=== PATIENT | female | born 1975 | race Caucasian/White ===

== ENCOUNTER → 2016-06-22 | Outpatient (REF) | payer MEDICAID | LOC: M SFHCWAGY 11:59 | PROVIDERS: ATTEND Nurse Practitioner Family | DX: Z12.4 Encounter for screening for malignant neoplasm of cervix (principal) ==

== ENCOUNTER → 2016-07-05 | Outpatient (REF) | payer MEDICAID ==
[2016-07-05 12:14] LABS: BASO % 0.2 % (0.0-1.0); EOS # 0.3 K/mm3 (0.0-0.50); EOS % 2.4 % (0.0-3.0); LARGE UNSTAINED CELL # 0.2 K/mm3 (0.0-0.4); LARGE UNSTAINED CELL % 1.8 % (0.0-4.0); LYMPH # 2.8 K/mm3 (1.5-4.5); LYMPH % 25.9 % (24.0-44.0); MEAN CORPUSCULAR HEMOGLOBIN 30.1 pg (27.0-33.0); MEAN CORPUSCULAR VOLUME 91.3 fl (80.0-96.0); MONO # 0.7 K/mm3 (0.0-0.8); NEUTROPHILS # 6.9 K/mm3 (1.8-7.7); NEUTROPHILS % 63.6 % (36.0-66.0); PLATELET COUNT, AUTOMATED 304 k/mm3 (150-450); RED CELL DISTRIBUTION WIDTH 12.9 % (11.5-14.5); WHITE BLOOD COUNT 10.9 K/mm3 (4.0-10.0)
[2016-07-05 12:42] LABS: ALBUMIN 2.9 GM/DL (3.2-5.2); ALBUMIN/GLOBULIN RATIO 0.76 (1.00-1.93); ALKALINE PHOSPHATASE 53 U/L (45-117); ALT/SGPT 12 U/L (12-78); ANION GAP 10 MEQ/L (8-16); AST/SGOT 14 U/L (15-37); BILIRUBIN,TOTAL 0.2 MG/DL (0.2-1.0); BLOOD UREA NITROGEN 15 MG/DL (7-18); CALCIUM LEVEL 8.5 MG/DL (8.5-10.1); CARBON DIOXIDE LEVEL 25 MEQ/L (21-32); CHLORIDE LEVEL 105 MEQ/L (98-107); CREATININE FOR GFR 0.78 MG/DL (0.55-1.02); GLOMERULAR FILTRATION RATE > 60.0 (>60); GLUCOSE, FASTING 83 MG/DL (70-105); POTASSIUM SERUM 4.5 MEQ/L (3.5-5.1); SODIUM LEVEL 140 MEQ/L (136-145); TOTAL PROTEIN 6.7 GM/DL (6.4-8.2)
== END ==
LOC: M SFHCPLAZ 08:39
PROVIDERS: ATTEND Family Medicine
DX: G40.909 Epilepsy, unspecified, not intractable, without status epilepticus (principal); E78.2 Mixed hyperlipidemia; R73.01 Impaired fasting glucose; E03.9 Hypothyroidism, unspecified; E55.9 Vitamin D deficiency, unspecified

== ENCOUNTER → 2016-07-05 | Outpatient (REF) | payer MEDICAID | LOC: M LABDRAWP 11:43 | PROVIDERS: ATTEND Physician Assistant Medical | DX: R56.9 Unspecified convulsions (principal) ==

== ENCOUNTER → 2016-11-18 | Outpatient (REF) | payer MEDICAID ==
[2016-11-18 11:48] LABS: BASO % 0.2 % (0.0-1.0); EOS # 0.2 K/mm3 (0.0-0.50); EOS % 2.1 % (0.0-3.0); LARGE UNSTAINED CELL # 0.2 K/mm3 (0.0-0.4); LARGE UNSTAINED CELL % 1.7 % (0.0-4.0); LYMPH # 3.9 K/mm3 (1.5-4.5); MEAN CORPUSCULAR HEMOGLOBIN 30.7 pg (27.0-33.0); MEAN CORPUSCULAR HGB CONC 33.4 g/dl (32.0-36.5); MEAN CORPUSCULAR VOLUME 91.9 fl (80.0-96.0); MONO # 0.8 K/mm3 (0.0-0.8); MONO % 7.3 % (0.0-5.0); NEUTROPHILS % 54.8 % (36.0-66.0); PLATELET COUNT, AUTOMATED 240 k/mm3 (150-450)
[2016-11-18 12:08] LABS: CHOLESTEROL LEVEL 143 MG/DL (<200); FREE T4 1.09 NG/DL (0.76-1.46); TOTAL PROTEIN 6.6 GM/DL (6.4-8.2); TRIGLYCERIDES LEVEL 154 MG/DL (<150)
[2016-11-20 00:07] LABS: FREE KAPPA LIGHT CHAINS SERUM 18.8 mg/L (3.3-19.4); FREE LAMBDA LIGHT CHAINS SERUM 15.4 mg/L (5.7-26.3); KAPPA/LAMBDA RATIO SERUM 1.22 (0.26-1.65)
[2016-11-21 12:49] LABS: ALBUMIN 3.23 GM/DL (3.29-5.55); GAMMA GLOBULIN % 16.3 % (11.1-18.8)
== END ==
LOC: M SFHCPLAZ 08:02
PROVIDERS: ATTEND Family Medicine
DX: D72.829 Elevated white blood cell count, unspecified (principal); E78.2 Mixed hyperlipidemia; E88.09 Other disorders of plasma-protein metabolism, not elsewhere classified; E03.9 Hypothyroidism, unspecified

== ENCOUNTER → 2016-11-18 | Outpatient (CLI) | payer MEDICAID ==
--- NOTE | 2016-11-18 09:56 | REPMRS ---
Patient History The patient states she had a clinical breast exam in 07/15 Baseline Mammogram Patient is nulliparous. Family history of pancreatic cancer in maternal uncle at age 50 or over. Taking hormonal contraceptives for 3 years. Digital Woman Screen Mammo: November 18, 2016 - Exam #: [id number] Bilateral CC and MLO view(s) were taken. Technologist: Nikki Perez, Technologist FINDINGS: There are scattered fibroglandular densities. There is no evidence of dominant mass, architectural distortion, or clustered microcalcification typical of malignancy. ASSESSMENT: BI-RADS/ACR category 1 mammogram. Negative. Recommendation Routine screening mammogram of both breasts in 1 year (for women over age 40). This mammogram was interpreted with the aid of an FDA-approved computer-aided dectection system. Electronically Signed By: Juve Amin MD 11/18/16 0956
== END ==
LOC: M WHC 08:21
PROVIDERS: ATTEND Family Medicine
DX: Z12.31 Encounter for screening mammogram for malignant neoplasm of breast (principal)

== ENCOUNTER → 2016-11-25 | Outpatient (REF) | payer MEDICAID | LOC: M LABDRAWP 13:56 | PROVIDERS: ATTEND Physician Assistant Medical | DX: R56.9 Unspecified convulsions (principal) ==

== ENCOUNTER → 2017-03-20 | Outpatient (REF) | payer MEDICAID ==
[2017-03-20 12:46] LABS: BASO % 0.3 % (0.0-1.0); EOS # 0.2 10^3/uL (0.0-0.50); EOS % 1.6 % (0.0-3.0); IMMATURE GRANULOCYTE % 0.4 % (0-0); LYMPH # 3.2 10^3/uL (1.5-4.5); LYMPH % 31.6 % (24.0-44.0); MEAN CORPUSCULAR HEMOGLOBIN 30.2 pg (27.0-33.0); MEAN CORPUSCULAR HGB CONC 32.2 g/dl (32.0-36.5); MEAN CORPUSCULAR VOLUME 93.8 fl (80.0-96.0); MONO # 1.1 10^3/uL (0.0-0.8); MONO % 10.7 % (0.0-5.0); NEUTROPHILS # 5.6 10^3/uL (1.8-7.7); NEUTROPHILS % 55.4 % (36.0-66.0); PLATELET COUNT, AUTOMATED 280 10^3/uL (150-450); RED CELL DISTRIBUTION WIDTH 12.9 % (11.5-14.5)
[2017-03-20 13:59] LABS: VITAMIN B12 LEVEL 326 PG/ML (247-911)
== END ==
LOC: M SFHCPLAZ 09:31
PROVIDERS: ATTEND Family Medicine
DX: D72.829 Elevated white blood cell count, unspecified (principal); R73.01 Impaired fasting glucose; E03.9 Hypothyroidism, unspecified

== ENCOUNTER → 2017-04-14 | Outpatient (CLI) | payer MEDICAID ==
--- NOTE | 2017-04-14 12:04 | REP ---
RIGHT FIRST TOE: Four views of the right first toe are performed. There is a nondisplaced fracture at the base of the distal phalanx. No other acute fracture or dislocation is seen. Signed by Paco Pagan MD 04/14/2017 04:59 P
== END ==
LOC: M LRY 10:44
PROVIDERS: ATTEND Nurse Practitioner Family
DX: S92.425A Nondisplaced fracture of distal phalanx of left great toe, initial encounter for closed fracture (principal); X58.XXXA Exposure to other specified factors, initial encounter; Y92.9 Unspecified place or not applicable; Y93.9 Activity, unspecified; Y99.9 Unspecified external cause status

== ENCOUNTER → 2017-05-11 | Outpatient (REF) | payer MEDICAID ==
[2017-05-11 14:58] LABS: VALPROIC ACID (DEPAKOTE) 62.2 UG/ML (50.0-100.0)
[2017-05-14 08:07] LABS: LEVETIRACETAM (KEPPRA) 32.9 ug/mL (10.0-40.0)
== END ==
LOC: M LABNEURO 13:58
DX: G40.909 Epilepsy, unspecified, not intractable, without status epilepticus (principal)

== ENCOUNTER → 2017-06-22 | Outpatient (REF) | payer MEDICAID | LOC: M SFHCWAGY 12:11 | DX: N84.1 Polyp of cervix uteri (principal) ==

== ENCOUNTER → 2017-06-27 | Outpatient (CLI) | payer MEDICAID | LOC: M WHC 08:52 | DX: D25.9 Leiomyoma of uterus, unspecified (principal) | CPT/HCPCS: 76830 ==

== ENCOUNTER → 2017-07-09 | Outpatient (REF) | payer MEDICAID | LOC: M LAB REF 20:26 | DX: J02.9 Acute pharyngitis, unspecified (principal) ==

== ENCOUNTER → 2017-07-10 | Outpatient (REF) | payer MEDICAID | LOC: M SFHCLERA 02:31 | DX: J02.9 Acute pharyngitis, unspecified (principal) ==

== ENCOUNTER → 2017-08-21 | Outpatient (REF) | payer MEDICAID ==
[2017-08-21 12:08] LABS: BASO % 0.2 % (0.0-1.0); EOS # 0.2 10^3/uL (0.0-0.50); EOS % 2.1 % (0.0-3.0); HEMOGLOBIN 12.7 g/dl (12.0-15.5); IMMATURE GRANULOCYTE % 0.3 % (0-3.0); LYMPH # 3.3 10^3/uL (1.5-4.5); LYMPH % 36.9 % (24.0-44.0); MEAN CORPUSCULAR HEMOGLOBIN 30.4 pg (27.0-33.0); MEAN CORPUSCULAR HGB CONC 32.6 g/dl (32.0-36.5); MEAN CORPUSCULAR VOLUME 93.3 fl (80.0-96.0); MONO % 11.4 % (0.0-5.0); NEUTROPHILS # 4.4 10^3/uL (1.8-7.7); NEUTROPHILS % 49.1 % (36.0-66.0); PLATELET COUNT, AUTOMATED 179 10^3/uL (150-450); RED BLOOD COUNT 4.18 10^6/uL (4.00-5.40); RED CELL DISTRIBUTION WIDTH 12.9 % (11.5-14.5); RETIC HEMOGLOBIN EQUIVALENT 34.8 pg (24-36); RETICULOCYTE # 106.2 10^9/L (17-77); RETICULOCYTE % 2.5 % (0.5-1.5)
[2017-08-21 12:11] LABS: POS COUNT POS FLAG
[2017-08-21 12:31] LABS: PTH INTACT 76.3 PG/ML (18.5-88.0); TOTAL 25(OH) VITAMIN D 43.7 NG/ML (30.0-100.0)
[2017-08-21 12:32] LABS: VITAMIN B12 LEVEL 749 PG/ML (247-911)
[2017-08-21 12:39] LABS: ALBUMIN 3.2 GM/DL (3.2-5.2); ALBUMIN/GLOBULIN RATIO 0.82 (1.00-1.93); ALKALINE PHOSPHATASE 56 U/L (45-117); ALT/SGPT 17 U/L (12-78); ANION GAP 5 MEQ/L (8-16); AST/SGOT 17 U/L (7-37); BILIRUBIN,TOTAL 0.4 MG/DL (0.2-1.0); BLOOD UREA NITROGEN 21 MG/DL (7-18); CALCIUM LEVEL 8.9 MG/DL (8.5-10.1); CARBON DIOXIDE LEVEL 29 MEQ/L (21-32); CHLORIDE LEVEL 108 MEQ/L (98-107); CREATININE FOR GFR 0.78 MG/DL (0.55-1.30); GLOMERULAR FILTRATION RATE > 60.0 (>58); GLUCOSE, FASTING 83 MG/DL (70-100); POTASSIUM SERUM 4.4 MEQ/L (3.5-5.1); SODIUM LEVEL 142 MEQ/L (136-145); TOTAL PROTEIN 7.1 GM/DL (6.4-8.2)
[2017-08-21 16:30] LABS: ESTIMATED AVERAGE GLUCOSE 103 MG/DL (60-110); HEMOGLOBIN A1c 5.2 %
[2017-08-22 14:14] LABS: INSULIN LEVEL 16.7 uIU/mL (2.6-24.9)
== END ==
LOC: M SFHCPLAZ 08:17
DX: E53.8 Deficiency of other specified B group vitamins (principal); E55.9 Vitamin D deficiency, unspecified; R73.01 Impaired fasting glucose
CPT/HCPCS: 83525

== ENCOUNTER → 2017-10-11 | Outpatient (CLI) | payer MEDICAID | LOC: M LRY 11:53 | DX: M79.602 Pain in left arm (principal) | CPT/HCPCS: 72052 ==

== ENCOUNTER 2017-10-23 08:58 | Outpatient (RCR) | payer MEDICAID | END 2017-10-28 | LOC: M PT 08:58 | DX: Z51.89 Encounter for other specified aftercare (principal); M75.32 Calcific tendinitis of left shoulder ==

== ENCOUNTER → 2017-10-26 | Outpatient (REF) | payer MEDICAID | LOC: M SFHCLERA 10:39 | DX: R30.0 Dysuria (principal) | CPT/HCPCS: 87186 ==

== ENCOUNTER 2017-10-31 08:59 | Outpatient (RCR) | payer MEDICAID | END 2017-11-28 | LOC: M PT 08:59 | DX: Z51.89 Encounter for other specified aftercare (principal); M75.32 Calcific tendinitis of left shoulder ==

== ENCOUNTER → 2017-11-08 | Outpatient (REF) | payer MEDICAID ==
[2017-11-08 18:42] LABS: BASO % 0.3 % (0.0-1.0); EOS # 0.1 10^3/uL (0.0-0.50); EOS % 1.4 % (0.0-3.0); HEMATOCRIT 41.9 % (36.0-47.0); HEMOGLOBIN 13.4 g/dl (12.0-15.5); IMMATURE GRANULOCYTE % 0.3 % (0-3.0); LYMPH # 2.4 10^3/uL (1.5-4.5); MEAN CORPUSCULAR VOLUME 93.7 fl (80.0-96.0); MONO # 1.1 10^3/uL (0.0-0.8); MONO % 12.5 % (0.0-5.0); NEUTROPHILS % 57.5 % (36.0-66.0); PLATELET COUNT, AUTOMATED 241 10^3/uL (150-450); RED BLOOD COUNT 4.47 10^6/uL (4.00-5.40); RED CELL DISTRIBUTION WIDTH 12.9 % (11.5-14.5); WHITE BLOOD COUNT 8.6 10^3/uL (4.0-10.0)
[2017-11-08 19:14] LABS: AST/SGOT 13 U/L (7-37)
[2017-11-08 19:14] LABS: ALT/SGPT 17 U/L (12-78); VALPROIC ACID (DEPAKOTE) 76.5 UG/ML (50.0-100.0)
[2017-11-12 09:05] LABS: LEVETIRACETAM (KEPPRA) 28.2 ug/mL (10.0-40.0)
== END ==
LOC: M LABNEURO 15:04
DX: Z51.81 Encounter for therapeutic drug level monitoring (principal); Z79.899 Other long term (current) drug therapy; R56.9 Unspecified convulsions
CPT/HCPCS: 84460

== ENCOUNTER → 2017-11-20 | Outpatient (CLI) | payer MEDICAID | LOC: M WHC 09:55 | DX: Z12.31 Encounter for screening mammogram for malignant neoplasm of breast (principal) | CPT/HCPCS: 77067 ==

== ENCOUNTER → 2018-02-16 | Outpatient (REF) | payer MEDICAID ==
[2018-02-16 22:19] LABS: CHLAMYDIA DNA AMPLIFICATION NEGATIVE (NEGATIVE); GC DNA AMPLIFICATION NEGATIVE (NEGATIVE)
== END ==
LOC: M SFHCLERA 16:52
DX: N30.01 Acute cystitis with hematuria (principal)

== ENCOUNTER → 2018-04-06 | Outpatient (REF) | payer MEDICAID | LOC: M SFHCLERA 13:19 | DX: R39.9 Unspecified symptoms and signs involving the genitourinary system (principal) ==

== ENCOUNTER → 2018-04-27 | Outpatient (REF) | payer MEDICAID ==
[2018-04-27 14:08] LABS: BASO % 0.3 % (0.0-1.0); EOS # 0.2 10^3/uL (0.0-0.50); EOS % 1.3 % (0.0-3.0); HEMATOCRIT 39.2 % (36.0-47.0); HEMOGLOBIN 12.4 g/dl (12.0-15.5); LYMPH # 2.3 10^3/uL (1.5-4.5); MEAN CORPUSCULAR HEMOGLOBIN 30.4 pg (27.0-33.0); MEAN CORPUSCULAR HGB CONC 31.6 g/dl (32.0-36.5); MEAN CORPUSCULAR VOLUME 96.1 fl (80.0-96.0); MONO # 1.8 10^3/uL (0.0-0.8); MONO % 14.6 % (0.0-5.0); NEUTROPHILS # 7.7 10^3/uL (1.8-7.7); NEUTROPHILS % 64.5 % (36.0-66.0); PLATELET COUNT, AUTOMATED 237 10^3/uL (150-450); RED BLOOD COUNT 4.08 10^6/uL (4.00-5.40)
[2018-04-27 15:16] LABS: ERYTHROCYTE SEDIMENTATION RATE 11 mm/hr (0-20)
== END ==
LOC: M SFHCPLAZ 10:36
PROVIDERS: ATTEND Physician Assistant Medical
DX: M54.2 Cervicalgia (principal); J02.9 Acute pharyngitis, unspecified

== ENCOUNTER → 2018-04-27 | Outpatient (CLI) | payer MEDICAID ==
--- NOTE | 2018-04-27 12:02 | REP ---
Clinical: Cervicalgia Technique: AP, lateral, flexion/extension, bilateral oblique, and open-mouth views of the cervical spine. Findings: Alignment and lordosis maintained. No acute fracture / compression injury or subluxation. No significant degenerative changes are appreciated. Spinous processes are intact. Neural foramen are patent. C1-C2 articulation and odontoid process are normal. Prevertebral soft tissues normal. Impression: Normal age-appropriate cervical spine radiograph series Electronically Signed by Tommie Olivares MD 04/27/2018 11:53 A
== END ==
LOC: M SMT 10:52
PROVIDERS: ATTEND Physician Assistant Medical
DX: M54.2 Cervicalgia (principal)

== ENCOUNTER → 2018-05-11 | Outpatient (REF) | payer MEDICAID ==
[2018-05-11 13:26] LABS: BASO % 0.2 % (0.0-1.0); EOS # 0.2 10^3/uL (0.0-0.50); EOS % 1.9 % (0.0-3.0); HEMATOCRIT 42.2 % (36.0-47.0); HEMOGLOBIN 13.6 g/dl (12.0-15.5); LYMPH # 3.2 10^3/uL (1.5-4.5); LYMPH % 33.9 % (24.0-44.0); MEAN CORPUSCULAR HEMOGLOBIN 30.2 pg (27.0-33.0); MEAN CORPUSCULAR HGB CONC 32.2 g/dl (32.0-36.5); MEAN CORPUSCULAR VOLUME 93.6 fl (80.0-96.0); MONO % 10.4 % (0.0-5.0); NEUTROPHILS # 5.1 10^3/uL (1.8-7.7); NEUTROPHILS % 53.2 % (36.0-66.0); PLATELET COUNT, AUTOMATED 269 10^3/uL (150-450); RED BLOOD COUNT 4.51 10^6/uL (4.00-5.40); WHITE BLOOD COUNT 9.6 10^3/uL (4.0-10.0)
[2018-05-11 13:38] LABS: VALPROIC ACID (DEPAKOTE) 90.6 UG/ML (50.0-100.0)
== END ==
LOC: M LABNEURO 09:45
PROVIDERS: ATTEND Physician Assistant Medical
DX: R56.9 Unspecified convulsions (principal)

== ENCOUNTER → 2018-05-15 | Outpatient (REF) | payer MEDICAID ==
[2018-05-15 15:50] LABS: BASO % 0.2 % (0.0-1.0); EOS # 0.1 10^3/uL (0.0-0.50); EOS % 1.5 % (0.0-3.0); HEMOGLOBIN 13.8 g/dl (12.0-15.5); LYMPH # 2.6 10^3/uL (1.5-4.5); LYMPH % 30.9 % (24.0-44.0); MEAN CORPUSCULAR HGB CONC 32.1 g/dl (32.0-36.5); MEAN CORPUSCULAR VOLUME 93.5 fl (80.0-96.0); MONO # 0.7 10^3/uL (0.0-0.8); MONO % 7.9 % (0.0-5.0); PLATELET COUNT, AUTOMATED 275 10^3/uL (150-450); WHITE BLOOD COUNT 8.5 10^3/uL (4.0-10.0)
[2018-05-15 15:52] LABS: APPEARANCE, URINE CLOUDY (CLEAR); BACTERIA, URINE AUTO 1+ (NEGATIVE); BILIRUBIN, URINE AUTO NEGATIVE (NEGATIVE); BLOOD, URINE BLOOD 2+ (NEGATIVE); COLOR, URINE AMBER (YELLOW); GLUCOSE, URINE (UA) AUTO NEGATIVE (NEGATIVE); KETONE, URINE AUTO TRACE mg/dL (NEGATIVE); LEUKOCYTE ESTERASE, URINE AUTO NEGATIVE (NEGATIVE); MUCUS, URINE SMALL (NEGATIVE); NITRITE, URINE AUTO NEGATIVE (NEGATIVE); PROTEIN, URINE AUTO 1+ mg/dL (NEGATIVE); RBC, URINE AUTO 53 /HPF (0-3); SPECIFIC GRAVITY URINE AUTO 1.029 (1.002-1.035); SQUAMOUS EPITHELIAL CELL UR AU 12 /HPF (0-6); WBC, URINE AUTO 0 /HPF (0-3)
[2018-05-15 15:57] LABS: ALBUMIN 3.4 GM/DL (3.2-5.2); ALT/SGPT 15 U/L (12-78); BILIRUBIN,TOTAL 0.4 MG/DL (0.2-1.0); BLOOD UREA NITROGEN 17 MG/DL (7-18); CALCIUM LEVEL 8.8 MG/DL (8.5-10.1); CARBON DIOXIDE LEVEL 26 MEQ/L (21-32); CHLORIDE LEVEL 104 MEQ/L (98-107); GLOMERULAR FILTRATION RATE > 60.0 (>58); GLUCOSE, FASTING 106 MG/DL (70-100); POTASSIUM SERUM 4.1 MEQ/L (3.5-5.1); SODIUM LEVEL 139 MEQ/L (136-145); TOTAL PROTEIN 7.3 GM/DL (6.4-8.2); VALPROIC ACID (DEPAKOTE) 104.5 UG/ML (50.0-100.0)
[2018-05-15 16:01] LABS: INR 0.97
[2018-05-15 16:02] LABS: PARTIAL THROMBOPLASTIN TIME 33.8 SECONDS (25.4-37.6)
[2018-05-15 16:14] LABS: HEMOGLOBIN A1c 5.7 %
[2018-05-15 16:26] LABS: MALB URINE SIEMENS 55.5 MG/L; MAU/CREAT RATIO 14.2 MCG/MG (0.0-30.0)
[2018-05-19 00:07] LABS: INSULIN LEVEL 169.4 uIU/mL (2.6-24.9); LEVETIRACETAM (KEPPRA) 31.2 ug/mL (10.0-40.0)
== END ==
LOC: M SFHCPLAZ 13:23
PROVIDERS: ATTEND Family Medicine
DX: D72.829 Elevated white blood cell count, unspecified (principal); R73.01 Impaired fasting glucose; G40.909 Epilepsy, unspecified, not intractable, without status epilepticus

== ENCOUNTER → 2018-06-29 | Outpatient (REF) | payer MEDICAID ==
[2018-06-29 12:32] LABS: BASO % 0.3 % (0.0-1.0); EOS # 0.2 10^3/uL (0.0-0.50); HEMATOCRIT 40.3 % (36.0-47.0); HEMOGLOBIN 12.7 g/dl (12.0-15.5); LYMPH # 3.4 10^3/uL (1.5-4.5); LYMPH % 36.3 % (24.0-44.0); MEAN CORPUSCULAR HEMOGLOBIN 30.2 pg (27.0-33.0); MEAN CORPUSCULAR HGB CONC 31.5 g/dl (32.0-36.5); MEAN CORPUSCULAR VOLUME 95.7 fl (80.0-96.0); MONO % 10.3 % (0.0-5.0); NEUTROPHILS # 4.8 10^3/uL (1.8-7.7); NEUTROPHILS % 50.5 % (36.0-66.0); PLATELET COUNT, AUTOMATED 258 10^3/uL (150-450); RED BLOOD COUNT 4.21 10^6/uL (4.00-5.40); WHITE BLOOD COUNT 9.4 10^3/uL (4.0-10.0)
[2018-06-29 12:44] LABS: ALBUMIN 3.1 GM/DL (3.2-5.2); ALT/SGPT 17 U/L (12-78); BILIRUBIN,TOTAL 0.5 MG/DL (0.2-1.0); BLOOD UREA NITROGEN 13 MG/DL (7-18); CALCIUM LEVEL 8.3 MG/DL (8.5-10.1); CARBON DIOXIDE LEVEL 29 MEQ/L (21-32); CHLORIDE LEVEL 105 MEQ/L (98-107); CREATININE FOR GFR 0.69 MG/DL (0.55-1.30); FREE T4 1.01 NG/DL (0.76-1.46); GLOMERULAR FILTRATION RATE > 60.0 (>58); GLUCOSE, FASTING 80 MG/DL (70-100); POTASSIUM SERUM 4.1 MEQ/L (3.5-5.1); SODIUM LEVEL 141 MEQ/L (136-145); TOTAL PROTEIN 6.5 GM/DL (6.4-8.2); VALPROIC ACID (DEPAKOTE) 89.6 UG/ML (50.0-100.0)
[2018-06-29 13:44] LABS: HEMOGLOBIN A1c 5.2 %
== END ==
LOC: M SFHCPLAZ 09:14
PROVIDERS: ATTEND Family Medicine
DX: D72.829 Elevated white blood cell count, unspecified (principal); R73.01 Impaired fasting glucose; E03.9 Hypothyroidism, unspecified; G40.909 Epilepsy, unspecified, not intractable, without status epilepticus

== ENCOUNTER → 2018-11-14 | Outpatient (REF) | payer MEDICAID ==
[2018-11-14 14:38] LABS: BASO % 0.3 % (0.0-1.0); EOS # 0.2 10^3/uL (0.0-0.50); EOS % 1.4 % (0.0-3.0); HEMATOCRIT 38.8 % (36.0-47.0); HEMOGLOBIN 12.2 g/dl (12.0-15.5); LYMPH # 3.4 10^3/uL (1.5-4.5); LYMPH % 30.6 % (24.0-44.0); MEAN CORPUSCULAR HEMOGLOBIN 29.6 pg (27.0-33.0); MEAN CORPUSCULAR HGB CONC 31.4 g/dl (32.0-36.5); MEAN CORPUSCULAR VOLUME 94.2 fl (80.0-96.0); MONO % 9.1 % (0.0-5.0); NEUTROPHILS # 6.4 10^3/uL (1.8-7.7); NEUTROPHILS % 58.3 % (36.0-66.0); PLATELET COUNT, AUTOMATED 264 10^3/uL (150-450); RED BLOOD COUNT 4.12 10^6/uL (4.00-5.40)
[2018-11-14 15:03] LABS: HEMOGLOBIN A1c 5.6 %
[2018-11-14 15:08] LABS: ALBUMIN 2.9 GM/DL (3.2-5.2); ALT/SGPT 15 U/L (12-78); BILIRUBIN,TOTAL 0.3 MG/DL (0.2-1.0); BLOOD UREA NITROGEN 16 MG/DL (7-18); CALCIUM LEVEL 8.4 MG/DL (8.5-10.1); CARBON DIOXIDE LEVEL 26 MEQ/L (21-32); CHLORIDE LEVEL 108 MEQ/L (98-107); CHOLESTEROL LEVEL 155 MG/DL (<200); CHOLESTEROL RISK RATIO 3.369 (<5); CREATININE FOR GFR 0.76 MG/DL (0.55-1.30); GLOMERULAR FILTRATION RATE > 60.0 (>58); GLUCOSE, FASTING 87 MG/DL (70-100); HDL CHOLESTEROL 46 MG/DL (>40); LDL CHOLESTEROL 78 MG/DL (<100); NON-HDL-C 109 MG/DL; POTASSIUM SERUM 4.1 MEQ/L (3.5-5.1); SODIUM LEVEL 141 MEQ/L (136-145); TOTAL PROTEIN 6.7 GM/DL (6.4-8.2); TRIGLYCERIDES LEVEL 157 MG/DL (<150)
[2018-11-14 15:15] LABS: PTH INTACT 80.7 PG/ML (18.5-88.0); TOTAL 25(OH) VITAMIN D 66.4 NG/ML (30.0-100.0); VITAMIN B12 LEVEL 517 PG/ML (247-911)
== END ==
LOC: M LABNEURO 09:21
PROVIDERS: ATTEND Family Medicine
DX: R73.01 Impaired fasting glucose (principal); E53.8 Deficiency of other specified B group vitamins; E55.9 Vitamin D deficiency, unspecified; E78.2 Mixed hyperlipidemia; G40.909 Epilepsy, unspecified, not intractable, without status epilepticus; Z79.899 Other long term (current) drug therapy

== ENCOUNTER → 2018-11-14 | Outpatient (REF) | payer MEDICAID ==
[2018-11-14 14:44] LABS: BASO % 0.3 % (0.0-1.0); EOS # 0.1 10^3/uL (0.0-0.50); EOS % 1.3 % (0.0-3.0); HEMATOCRIT 39.9 % (36.0-47.0); HEMOGLOBIN 12.6 g/dl (12.0-15.5); LYMPH # 3.2 10^3/uL (1.5-4.5); LYMPH % 29.5 % (24.0-44.0); MEAN CORPUSCULAR HEMOGLOBIN 30.5 pg (27.0-33.0); MEAN CORPUSCULAR HGB CONC 31.6 g/dl (32.0-36.5); MEAN CORPUSCULAR VOLUME 96.6 fl (80.0-96.0); MONO # 1.1 10^3/uL (0.0-0.8); MONO % 9.9 % (0.0-5.0); NEUTROPHILS # 6.3 10^3/uL (1.8-7.7); NEUTROPHILS % 58.7 % (36.0-66.0); PLATELET COUNT, AUTOMATED 256 10^3/uL (150-450); RED BLOOD COUNT 4.13 10^6/uL (4.00-5.40); WHITE BLOOD COUNT 10.8 10^3/uL (4.0-10.0)
[2018-11-14 15:06] LABS: VALPROIC ACID (DEPAKOTE) 36.8 UG/ML (50.0-100.0)
== END ==
LOC: M LABNEURO 09:18
PROVIDERS: ATTEND Physician Assistant Medical
DX: R79.89 Other specified abnormal findings of blood chemistry (principal)

== ENCOUNTER → 2018-11-21 | Outpatient (CLI) | payer MEDICAID | LOC: M WUC 09:50 | PROVIDERS: ATTEND Physician Assistant Medical | DX: G40.89 Other seizures (principal) ==

== ENCOUNTER → 2018-12-12 | Outpatient (CLI) | payer MEDICAID ==
--- NOTE | 2018-12-12 14:51 | REPMRS ---
Patient History The patient states she had a clinical breast exam in 06/2018. Patient is nulliparous. Family history of pancreatic cancer at age 50 or over in maternal uncle, pancreatic cancer at age 50 or over in paternal grandfather. Taking hormonal contraceptives for 5 years. Digital Woman Screen Mammo: December 12, 2018 - Exam #: [id number] Bilateral CC and MLO view(s) were taken. Technologist: Tiki Chiang, Technologist Prior study comparison: November 20, 2017, bilateral digital woman screen mammo performed at [facility]. November 18, 2016, digital woman screen mammo performed at [facility]. FINDINGS: There are scattered fibroglandular densities. There has been no change in the appearance of the mammogram from the prior studies. There is a mild amount of scattered fibroglandular density which is fairly symmetric. There is no interval development of dominant mass, architectural distortion, or grouped microcalcification suggestive of malignancy. 3-D tomosynthesis shows no additional findings. Assessment: BI-RADS/ACR category 1 mammogram. Negative Mammogram. Recommendation Routine screening mammogram of both breasts in 1 year (for women over age 40). This patient's Lifetime Breast Cancer Risk is estimated at 14.4 %. This mammogram was interpreted with the aid of an FDA-approved computer-aided dectection system. Electronically Signed By: Juve Amin MD 12/12/18 [id number]
--- NOTE | 2018-12-17 09:22 | DEXA ---
AP SPINE L1 - L4 1.391 1.6 1.6 LT FEMUR TOTAL 1.230 1.8 2.0 LT NECK 1.078 0.3 0.8 RT FEMUR TOTAL 1.160 1.2 1.5 RT NECK 1.049 0.1 0.6 TOTAL BODY TOTAL OTHER COMMENTS: Normal bone densitometry of the spine and hips. The density of the spine has decreased 3.7% since 05/14/2013. The density of the left hip has decreased 2.4% since 05/14/2013. The density of the right hip has decreased 3.2% since 05/14/2013. FOLLOW-UP: Recommendation for the next bone density exam: 5 years. ANA MARIA
== END ==
LOC: M WHC 09:57
PROVIDERS: ATTEND Family Medicine
DX: Z12.31 Encounter for screening mammogram for malignant neoplasm of breast (principal); Z79.3 Long term (current) use of hormonal contraceptives; E55.9 Vitamin D deficiency, unspecified

== ENCOUNTER → 2019-01-23 | Outpatient (REF) | payer MEDICAID | LOC: M SFHCLERA 14:07 | PROVIDERS: ATTEND Physician Assistant | DX: R30.0 Dysuria (principal) ==

== ENCOUNTER → 2019-03-24 | Outpatient (REF) | payer MEDICAID | LOC: M SFHCLERA 13:31 | PROVIDERS: ATTEND Nurse Practitioner Family | DX: R30.0 Dysuria (principal) ==

== ENCOUNTER → 2019-05-23 | Outpatient (CLI) | payer MEDICAID ==
[2019-05-23 13:51] LABS: VALPROIC ACID (DEPAKOTE) 63.8 UG/ML (50.0-100.0)
[2019-05-23 13:52] LABS: APPEARANCE, URINE HAZY (CLEAR); BACTERIA, URINE AUTO NEGATIVE (NEGATIVE); BILIRUBIN, URINE AUTO NEGATIVE (NEGATIVE); BLOOD, URINE BLOOD 2+ (NEGATIVE); COLOR, URINE YELLOW (YELLOW); GLUCOSE, URINE (UA) AUTO NEGATIVE (NEGATIVE); KETONE, URINE AUTO TRACE mg/dL (NEGATIVE); LEUKOCYTE ESTERASE, URINE AUTO NEGATIVE (NEGATIVE); MUCUS, URINE SMALL (NEGATIVE); NITRITE, URINE AUTO NEGATIVE (NEGATIVE); PROTEIN, URINE AUTO NEGATIVE (NEGATIVE); RBC, URINE AUTO 36 /HPF (0-3); SPECIFIC GRAVITY URINE AUTO 1.023 (1.002-1.035); SQUAMOUS EPITHELIAL CELL UR AU 6 /HPF (0-6); WBC, URINE AUTO 2 /HPF (0-3)
[2019-05-23 13:53] LABS: ALBUMIN 2.9 GM/DL (3.2-5.2); ALT/SGPT 14 U/L (12-78); BILIRUBIN,TOTAL 0.4 MG/DL (0.2-1.0); BLOOD UREA NITROGEN 16 MG/DL (7-18); CALCIUM LEVEL 8.6 MG/DL (8.5-10.1); CARBON DIOXIDE LEVEL 27 MEQ/L (21-32); CHLORIDE LEVEL 107 MEQ/L (98-107); CREATININE FOR GFR 0.76 MG/DL (0.55-1.30); GLOMERULAR FILTRATION RATE > 60.0 (>58); GLUCOSE, FASTING 88 MG/DL (70-100); POTASSIUM SERUM 4.5 MEQ/L (3.5-5.1); SODIUM LEVEL 141 MEQ/L (136-145); TOTAL PROTEIN 6.7 GM/DL (6.4-8.2)
[2019-05-23 13:56] LABS: BASO % 0.2 % (0.0-1.0); EOS # 0.2 10^3/uL (0.0-0.5); EOS % 1.6 % (0.0-3.0); HEMATOCRIT 42.1 % (36.0-47.0); HEMOGLOBIN 13.1 g/dl (12.0-15.5); LYMPH # 3.3 10^3/uL (1.5-5.0); LYMPH % 32.6 % (24.0-44.0); MEAN CORPUSCULAR HEMOGLOBIN 29.2 pg (27.0-33.0); MEAN CORPUSCULAR HGB CONC 31.1 g/dl (32.0-36.5); MEAN CORPUSCULAR VOLUME 93.8 fl (80.0-96.0); MONO # 0.9 10^3/uL (0.0-0.8); MONO % 9.1 % (0.0-5.0); NEUTROPHILS # 5.7 10^3/uL (1.5-8.5); NEUTROPHILS % 56.1 % (36.0-66.0); PLATELET COUNT, AUTOMATED 276 10^3/uL (150-450); RED BLOOD COUNT 4.49 10^6/uL (4.00-5.40); WHITE BLOOD COUNT 10.1 10^3/uL (4.0-10.0)
[2019-05-23 14:01] LABS: TOTAL 25(OH) VITAMIN D 104.5 NG/ML (30.0-100.0)
[2019-05-23 14:02] LABS: PTH INTACT 85.8 PG/ML (18.5-88.0)
[2019-05-23 14:05] LABS: HEMOGLOBIN A1c 5.6 %
[2019-05-23 14:30] LABS: MAU/CREAT RATIO 8.3 MCG/MG (0.0-30.0)
== END ==
LOC: M PLALAB 10:17
PROVIDERS: ATTEND Physician Assistant Medical
DX: R73.01 Impaired fasting glucose (principal); R56.9 Unspecified convulsions

== ENCOUNTER → 2019-06-21 | Outpatient (CLI) | payer MEDICAID ==
[~2019-06-21] MED LIST: ATOR80TA59 PO; B-122500 PO; DEBL1TAB PO; DEPA250T2 PO; FLUO20CA22 PO; HALO1TA PO; IBUP80TA PO; KEPP500T13 PO; LEVO0.1T PO; LEVO25TA5 PO; OMEP-218 PO; ONDA4TAB6 PO; VESI10TA2 PO; VITA50005 PO
[2019-06-21 17:18] LABS: BASO % 0.2 % (0.0-1.0); EOS # 0.1 10^3/uL (0.0-0.5); EOS % 0.7 % (0.0-3.0); HEMATOCRIT 40.3 % (36.0-47.0); HEMOGLOBIN 13.1 g/dl (12.0-15.5); LYMPH # 3.5 10^3/uL (1.5-5.0); LYMPH % 21.7 % (24.0-44.0); MEAN CORPUSCULAR HEMOGLOBIN 29.6 pg (27.0-33.0); MEAN CORPUSCULAR HGB CONC 32.5 g/dl (32.0-36.5); MONO % 12.6 % (0.0-5.0); NEUTROPHILS # 10.4 10^3/uL (1.5-8.5); NEUTROPHILS % 64.3 % (36.0-66.0); PLATELET COUNT, AUTOMATED 309 10^3/uL (150-450); RED BLOOD COUNT 4.43 10^6/uL (4.00-5.40); WHITE BLOOD COUNT 16.2 10^3/uL (4.0-10.0)
[2019-06-21 17:27] LABS: APPEARANCE, URINE HAZY (CLEAR); BACTERIA, URINE AUTO NEGATIVE (NEGATIVE); BILIRUBIN, URINE AUTO NEGATIVE (NEGATIVE); BLOOD, URINE BLOOD 2+ (NEGATIVE); COLOR, URINE YELLOW (YELLOW); GLUCOSE, URINE (UA) AUTO NEGATIVE (NEGATIVE); KETONE, URINE AUTO TRACE mg/dL (NEGATIVE); LEUKOCYTE ESTERASE, URINE AUTO NEGATIVE (NEGATIVE); MUCUS, URINE SMALL (NEGATIVE); NITRITE, URINE AUTO NEGATIVE (NEGATIVE); PROTEIN, URINE AUTO NEGATIVE (NEGATIVE); RBC, URINE AUTO 44 /HPF (0-3); SQUAMOUS EPITHELIAL CELL UR AU 3 /HPF (0-6); UROBILINOGEN, URINE AUTO 0.2 mg/dL (0.0-2.0); WBC, URINE AUTO 1 /HPF (0-3)
[2019-06-21 17:38] LABS: ALT/SGPT 14 U/L (12-78); BILIRUBIN,TOTAL 0.4 MG/DL (0.2-1.0); BLOOD UREA NITROGEN 15 MG/DL (7-18); C REACTIVE PROTEIN QUANTITATIV 3.66 MG/DL (0.00-0.30); CALCIUM LEVEL 8.5 MG/DL (8.5-10.1); CARBON DIOXIDE LEVEL 27 MEQ/L (21-32); CHLORIDE LEVEL 106 MEQ/L (98-107); CREATININE FOR GFR 0.77 MG/DL (0.55-1.30); GLOMERULAR FILTRATION RATE > 60.0 (>58); GLUCOSE, FASTING 61 MG/DL (70-100); LIPASE 132 U/L (73-393); POTASSIUM SERUM 4.5 MEQ/L (3.5-5.1); SODIUM LEVEL 138 MEQ/L (136-145)
== END ==
LOC: M PLALAB 15:26
PROVIDERS: ATTEND Nurse Practitioner Family
DX: R10.9 Unspecified abdominal pain (principal)

== ENCOUNTER 2019-06-22 09:34 | Emergency (ER) | payer MEDICAID ==
[~2019-06-22] VITALS: Ht 160 cm; Wt 108.7 kg
[2019-06-22] MEDS ORDERED: B-122500 PO (10:03)
[2019-06-22] MEDS ORDERED: DEPA250T2 PO (10:03)
[2019-06-22] MEDS ORDERED: ATOR80TA59 PO (10:03)
[2019-06-22] MEDS ORDERED: LEVO25TA5 PO (10:03)
[2019-06-22] MEDS ORDERED: LEVO0.1T PO (10:03)
[2019-06-22] MEDS ORDERED: DEBL1TAB PO (10:03)
[2019-06-22] MEDS ORDERED: VESI10TA2 PO (10:03)
[2019-06-22] MEDS ORDERED: KEPP500T13 PO (10:03)
[2019-06-22] MEDS ORDERED: OMEP-218 PO (10:03)
[2019-06-22] MEDS ORDERED: FLUO20CA22 PO (10:03)
[2019-06-22] MEDS ORDERED: HALO1TA PO (10:03)
[2019-06-22] MEDS ORDERED: VITA50005 PO (10:03)
[2019-06-22] MEDS ORDERED: NS 1,000 ML IV ONE (10:15)
[2019-06-22] MEDS ORDERED: KETOROLAC 30 MG/ML VIAL (J1885) IV ONE (10:15)
[2019-06-22] MEDS ORDERED: ONDANSETRON 4MG/2ML VIAL (J2405) IV ONE (10:15)
[2019-06-22] MEDS ORDERED: ISOVUE-370 76% 100ML VIAL (Q9967) As Ordered ONE (10:51)
[2019-06-22 11:03] LABS: BASO % 0.3 % (0.0-1.0); EOS # 0.1 10^3/uL (0.0-0.5); EOS % 0.6 % (0.0-3.0); HEMATOCRIT 38.3 % (36.0-47.0); HEMOGLOBIN 12.3 g/dl (12.0-15.5); LYMPH % 12.8 % (24.0-44.0); MEAN CORPUSCULAR HEMOGLOBIN 29.2 pg (27.0-33.0); MEAN CORPUSCULAR HGB CONC 32.1 g/dl (32.0-36.5); MONO # 1.7 10^3/uL (0.0-0.8); MONO % 10.5 % (0.0-5.0); NEUTROPHILS # 11.9 10^3/uL (1.5-8.5); NEUTROPHILS % 75.3 % (36.0-66.0); PLATELET COUNT, AUTOMATED 263 10^3/uL (150-450); RED BLOOD COUNT 4.21 10^6/uL (4.00-5.40); WHITE BLOOD COUNT 15.8 10^3/uL (4.0-10.0)
--- NOTE | 2019-06-22 11:34 | REP ---
CT of the abdomen and pelvis with IV contrast, without bowel contrast: Comparison is 03/05/2011. The visualized lung cowan are unremarkable. The hepatic parenchyma is homogeneous. The gallbladder is unremarkable. I suspect there is peripancreatic inflammation at the pancreatic head and the pancreatic head appears enlarged . The body and tail of the pancreas are unremarkable. There is no pseudocyst or abscess. The adrenals are unremarkable. There are no renal calculi. There are no ureteral or bladder calculi. There is no hydronephrosis. Renal cortical enhancement is homogeneous. There is no perinephric stranding. There is no CT evidence of pyelonephritis. The kidneys are unremarkable. The abdominal aorta is unremarkable. There is no periaortic adenopathy or mass. There is no bowel distension or obstruction. There is no ascites. Pelvis: The the patient reportedly has an appendectomy. The uterus, adnexa and bladder are unremarkable. There is no ascites or adenopathy. The pelvic bowel loops are unremarkable. Impression: The pancreatic head as an abnormal appearance and appears enlarged and has radha pancreatic inflammation. This could represent pancreatitis and / or pancreatic mass. There is no ascites or adenopathy. There are no renal, ureteral or bladder calculi. There is no hydronephrosis. There are no renal masses or cysts. The lumbar spine is unremarkable. Electronically Signed by Paco Davis MD 06/22/2019 11:26 A
[2019-06-22 12:04] LABS: ALBUMIN 2.7 GM/DL (3.2-5.2); BILIRUBIN,DIRECT 0.2 MG/DL (0.0-0.2); BILIRUBIN,TOTAL 0.4 MG/DL (0.2-1.0); TOTAL PROTEIN 6.8 GM/DL (6.4-8.2)
[2019-06-22] MEDS ORDERED: IBUP80TA PO (12:42)
[2019-06-22] MEDS ORDERED: ONDA4TAB6 PO (12:42)
[2019-06-22 12:45] VITALS: BP 130/77
--- NOTE | 2019-06-24 09:52 | ED PDOC ---
Post-Departure Follow-Up dr mckeon faxed formal report of ct abd/p for fu Elham Fernández MD Jun 24, 2019 09:52
== END 2019-06-22 13:15 | disposition home or self-care (01) ==
LOC: M ED 09:34
DX: K85.90 Acute pancreatitis without necrosis or infection, unspecified (principal); R31.9 Hematuria, unspecified; Z88.1 Allergy status to other antibiotic agents; Z88.2 Allergy status to sulfonamides; Z88.8 Allergy status to other drugs, medicaments and biological substances
CPT/HCPCS: 74177; 80047; 80076; 81001; 83605; 83690; 84702; 85025; 96361; 96374; 96375; 99284; J1885; J2405; Q9967

== ENCOUNTER → 2019-06-28 | Outpatient (CLI) | payer MEDICAID ==
[2019-06-28 11:27] LABS: BASO % 0.4 % (0.0-1.0); EOS # 0.1 10^3/uL (0.0-0.5); EOS % 1.4 % (0.0-3.0); HEMATOCRIT 40.4 % (36.0-47.0); LYMPH # 2.6 10^3/uL (1.5-5.0); LYMPH % 32.5 % (24.0-44.0); MEAN CORPUSCULAR HGB CONC 32.2 g/dl (32.0-36.5); MEAN CORPUSCULAR VOLUME 90.2 fl (80.0-96.0); MONO # 0.9 10^3/uL (0.0-0.8); MONO % 11.3 % (0.0-5.0); NEUTROPHILS # 4.4 10^3/uL (1.5-8.5); NEUTROPHILS % 53.9 % (36.0-66.0); PLATELET COUNT, AUTOMATED 312 10^3/uL (150-450); RED BLOOD COUNT 4.48 10^6/uL (4.00-5.40); WHITE BLOOD COUNT 8.1 10^3/uL (4.0-10.0)
[2019-06-28 11:42] LABS: AMORPHOUS SEDIMENT SMALL (NEGATIVE); APPEARANCE, URINE CLOUDY (CLEAR); BACTERIA, URINE AUTO 1+ (NEGATIVE); BILIRUBIN, URINE AUTO 1+ (NEGATIVE); BLOOD, URINE BLOOD 3+ (NEGATIVE); COLOR, URINE AMBER (YELLOW); GLUCOSE, URINE (UA) AUTO NEGATIVE (NEGATIVE); GRANULAR CAST, URINE AUTO 3 /LPF; KETONE, URINE AUTO TRACE mg/dL (NEGATIVE); LEUKOCYTE ESTERASE, URINE AUTO NEGATIVE (NEGATIVE); MUCUS, URINE MODERATE (NEGATIVE); NITRITE, URINE AUTO NEGATIVE (NEGATIVE); PROTEIN, URINE AUTO 2+ mg/dL (NEGATIVE); RBC, URINE AUTO 44 /HPF (0-3); SQUAMOUS EPITHELIAL CELL UR AU 12 /HPF (0-6); WBC, URINE AUTO 12 /HPF (0-3)
[2019-06-28 11:46] LABS: ALBUMIN 2.8 GM/DL (3.2-5.2); ALT/SGPT 16 U/L (12-78); BILIRUBIN,TOTAL 0.3 MG/DL (0.2-1.0); BLOOD UREA NITROGEN 11 MG/DL (7-18); C REACTIVE PROTEIN QUANTITATIV 0.59 MG/DL (0.00-0.30); CALCIUM LEVEL 8.5 MG/DL (8.5-10.1); CARBON DIOXIDE LEVEL 27 MEQ/L (21-32); CHLORIDE LEVEL 107 MEQ/L (98-107); GLOMERULAR FILTRATION RATE > 60.0 (>58); GLUCOSE, FASTING 87 MG/DL (70-100); LIPASE 65 U/L (73-393); POTASSIUM SERUM 4.1 MEQ/L (3.5-5.1); SODIUM LEVEL 138 MEQ/L (136-145)
== END ==
LOC: M PLALAB 09:54
PROVIDERS: ATTEND Nurse Practitioner Family
DX: R31.9 Hematuria, unspecified (principal); K86.9 Disease of pancreas, unspecified; D72.829 Elevated white blood cell count, unspecified

== ENCOUNTER → 2019-07-05 | Outpatient (REF) | payer MEDICAID ==
[2019-07-05 19:32] LABS: APPEARANCE, URINE CLOUDY (CLEAR); BACTERIA, URINE AUTO 1+ (NEGATIVE); BILIRUBIN, URINE AUTO NEGATIVE (NEGATIVE); BLOOD, URINE BLOOD 2+ (NEGATIVE); COLOR, URINE YELLOW (YELLOW); GLUCOSE, URINE (UA) AUTO NEGATIVE (NEGATIVE); KETONE, URINE AUTO TRACE mg/dL (NEGATIVE); LEUKOCYTE ESTERASE, URINE AUTO NEGATIVE (NEGATIVE); MUCUS, URINE SMALL (NEGATIVE); NITRITE, URINE AUTO NEGATIVE (NEGATIVE); PROTEIN, URINE AUTO NEGATIVE (NEGATIVE); RBC, URINE AUTO 24 /HPF (0-3); SPECIFIC GRAVITY URINE AUTO 1.016 (1.002-1.035); SQUAMOUS EPITHELIAL CELL UR AU 13 /HPF (0-6); UROBILINOGEN, URINE AUTO 0.2 mg/dL (0.0-2.0); WBC, URINE AUTO 3 /HPF (0-3)
== END ==
LOC: M SMT 18:10
PROVIDERS: ATTEND Nurse Practitioner Family
DX: R31.29 Other microscopic hematuria (principal)

== ENCOUNTER → 2019-07-05 | Outpatient (CLI) | payer MEDICAID ==
--- NOTE | 2019-07-05 11:00 | REP ---
ULTRASOUND ABDOMEN: Real-time sonographic evaluation of the abdomen performed. Gallbladder demonstrates no evidence of intraluminal sludge or calculi, wall thickening or pericholecystic fluid. There is no intrahepatic or extrahepatic biliary dilatation, common bile duct measuring 3 mm. Liver is mildly enlarged measuring 18.6 cm in length. Its echotexture is heterogeneous and increased suggesting some degree of fibrofatty infiltration. No gross liver or pancreatic mass is seen. Pancreas is not well seen due to overlying bowel gas. The spleen is upper limits of normal in size 10.8 x 11.7 x 4.2 cm with no intrinsic abnormality. Kidneys are normal in size and echotexture, right kidney measuring 12.0 x 4.3 x 3.8 cm and left kidney 12.1 x 5.8 x 5.1 cm. There is no renal mass, hydronephrosis or nephrolithiasis. Abdominal aorta is normal in caliber with no aneurysm, proximally measuring 2.2 cm and distally 1.4 cm. There is no ascites. IMPRESSION: Somewhat limited due to patient body habitus and bowel gas. Mild hepatomegaly with diffuse fibrofatty infiltration of the liver. No other significant finding. Electronically Signed by Paco Pagan MD 07/09/2019 03:23 P
== END ==
LOC: M RAD 08:08
PROVIDERS: ATTEND Family Medicine
DX: K85.90 Acute pancreatitis without necrosis or infection, unspecified (principal)

== ENCOUNTER → 2019-07-09 | Outpatient (CLI) | payer MEDICAID ==
[~2019-07-09] MED LIST changes: +ISOVUE-370 76% 100ML VIAL (Q9967) As Ordered ONE
--- NOTE | 2019-07-09 17:14 | REP ---
CT urography: CT study of the abdomen and pelvis without and with IV contrast: Dual-phase postcontrast imaging. History: Hematuria. Comparison CT study June 22, 2019. CT contrast dose: 100 mL of intravenous Isovue 370 is administered. Findings: Preliminary digital professor of geography radiograph is unremarkable. The lung bases are clear. The liver and the spleen are normal in size and homogeneous in texture on pre and postcontrast imaging. No adrenal abnormalities observed. The gallbladder is unremarkable. The pancreatic head edema and the peripancreatic mesenteric root edema seen on the June 22, [address] study has nearly resolved. There is no visible pancreatic mass. No retroperitoneal adenopathy is seen. There is no evidence of hydronephrosis or intrarenal calculus on either side. The kidneys enhance symmetrically and are morphologically intact on pre and postcontrast images. Delayed scan images demonstrate no filling defect in the collecting system on either side. The ureters describe a normal course to the urinary bladder. Bladder quinn are smooth. No uterine or ovarian lesion is seen. Small and large intestinal bowel loops are unremarkable. No abdominal wall defect is seen. Impression: There is no evidence of urinary tract calculus, hydronephrosis, mass or cyst. The peripancreatic head edema and the mesenteric root edema associated with this finding have virtually resolved in the interval since the June 22, 2019 prior study. Electronically Signed by Puma Amin MD 07/09/2019 05:44 P
== END ==
LOC: M RAD 13:43
PROVIDERS: ATTEND Nurse Practitioner Family
DX: R31.9 Hematuria, unspecified (principal)
CPT/HCPCS: 74178; Q9967

== ENCOUNTER → 2019-07-12 | Outpatient (REF) | payer MEDICAID ==
[~2019-07-12] MED LIST changes: -ISOVUE-370 76% 100ML VIAL (Q9967) As Ordered ONE
[2019-07-12 17:55] LABS: APPEARANCE, URINE CLOUDY (CLEAR); BILIRUBIN, URINE AUTO NEGATIVE (NEGATIVE); BLOOD, URINE BLOOD 2+ (NEGATIVE); COLOR, URINE AMBER (YELLOW); GLUCOSE, URINE (UA) AUTO NEGATIVE (NEGATIVE); KETONE, URINE AUTO TRACE mg/dL (NEGATIVE); LEUKOCYTE ESTERASE, URINE AUTO NEGATIVE (NEGATIVE); NITRITE, URINE AUTO NEGATIVE (NEGATIVE); PROTEIN, URINE AUTO 2+ mg/dL (NEGATIVE)
[2019-07-12 18:06] LABS: BACTERIA, URINE AUTO NEGATIVE (NEGATIVE); CALCIUM OXALATE CRYSTALS SMALL; MUCUS, URINE SMALL (NEGATIVE); RBC, URINE AUTO 37 /HPF (0-3); SQUAMOUS EPITHELIAL CELL UR AU 6 /HPF (0-6); WBC, URINE AUTO 4 /HPF (0-3)
== END ==
LOC: M SMT 16:44
PROVIDERS: ATTEND Nurse Practitioner Family
DX: R31.9 Hematuria, unspecified (principal)

== ENCOUNTER → 2019-08-15 | Outpatient (REF) | payer MEDICAID ==
[2019-08-15 12:30] LABS: BASO % 0.3 % (0.0-1.0); EOS # 0.2 10^3/uL (0.0-0.5); EOS % 1.5 % (0.0-3.0); HEMATOCRIT 41.7 % (36.0-47.0); HEMOGLOBIN 13.5 g/dl (12.0-15.5); LYMPH # 2.6 10^3/uL (1.5-5.0); LYMPH % 25.8 % (24.0-44.0); MEAN CORPUSCULAR HEMOGLOBIN 29.8 pg (27.0-33.0); MEAN CORPUSCULAR HGB CONC 32.4 g/dl (32.0-36.5); MEAN CORPUSCULAR VOLUME 92.1 fl (80.0-96.0); MONO # 0.9 10^3/uL (0.0-0.8); MONO % 9.2 % (0.0-5.0); NEUTROPHILS # 6.3 10^3/uL (1.5-8.5); NEUTROPHILS % 62.7 % (36.0-66.0); PLATELET COUNT, AUTOMATED 316 10^3/uL (150-450); RED BLOOD COUNT 4.53 10^6/uL (4.00-5.40)
[2019-08-15 13:24] LABS: ALBUMIN 2.7 GM/DL (3.2-5.2); ALT/SGPT 14 U/L (12-78); AMYLASE 18 U/L (25-115); BILIRUBIN,TOTAL 0.3 MG/DL (0.2-1.0); BLOOD UREA NITROGEN 17 MG/DL (7-18); CALCIUM LEVEL 8.5 MG/DL (8.5-10.1); CARBON DIOXIDE LEVEL 24 MEQ/L (21-32); CHLORIDE LEVEL 107 MEQ/L (98-107); GLOMERULAR FILTRATION RATE > 60.0 (>58); GLUCOSE, FASTING 143 MG/DL (70-100); LIPASE 85 U/L (73-393); POTASSIUM SERUM 4.1 MEQ/L (3.5-5.1); SODIUM LEVEL 139 MEQ/L (136-145)
[2019-08-16 08:47] LABS: CA19-9 TUMOR MARKER,CARBOHYDRA 15.1 U/ML (<35.0)
== END ==
LOC: M SFHCPLAZ 11:11
PROVIDERS: ATTEND Physician Assistant Medical
DX: K21.9 Gastro-esophageal reflux disease without esophagitis (principal)

== ENCOUNTER → 2019-10-03 | Outpatient (REF) | payer MEDICAID ==
[2019-10-03 10:35] LABS: BASO % 0.2 % (0.0-1.0); EOS # 0.1 10^3/uL (0.0-0.5); EOS % 1.2 % (0.0-3.0); HEMATOCRIT 40.9 % (36.0-47.0); HEMOGLOBIN 12.9 g/dl (12.0-15.5); LYMPH # 3.6 10^3/uL (1.5-5.0); LYMPH % 33.2 % (24.0-44.0); MEAN CORPUSCULAR HEMOGLOBIN 28.9 pg (27.0-33.0); MEAN CORPUSCULAR HGB CONC 31.5 g/dl (32.0-36.5); MEAN CORPUSCULAR VOLUME 91.5 fl (80.0-96.0); MONO # 1.1 10^3/uL (0.0-0.8); NEUTROPHILS % 54.9 % (36.0-66.0); PLATELET COUNT, AUTOMATED 266 10^3/uL (150-450); RED BLOOD COUNT 4.47 10^6/uL (4.00-5.40); WHITE BLOOD COUNT 10.9 10^3/uL (4.0-10.0)
[2019-10-03 11:08] LABS: FREE T4 1.09 NG/DL (0.76-1.46); THYROID STIMULATING HORMONE 3.74 uIU/ML (0.358-3.740)
[2019-10-03 11:18] LABS: HEMOGLOBIN A1c 5.9 %
== END ==
LOC: M PLALAB 09:01
PROVIDERS: ATTEND Family Medicine
DX: D72.829 Elevated white blood cell count, unspecified (principal); E03.9 Hypothyroidism, unspecified; R73.01 Impaired fasting glucose

== ENCOUNTER → 2019-11-14 | Outpatient (CLI) | payer MEDICAID | LOC: M PLALAB 12:09 | PROVIDERS: ATTEND Physician Assistant Medical | DX: G40.89 Other seizures (principal) ==

== ENCOUNTER → 2019-12-24 | Outpatient (CLI) | payer MEDICAID ==
--- NOTE | 2019-12-25 16:29 | REPMRS ---
Patient History The patient states she has not had a clinical breast exam in over a year. Family history of pancreatic cancer at age 50 or over in maternal uncle, pancreatic cancer at age 50 or over in paternal grandfather. Taking hormonal contraceptives for 5 years. Digital Woman Screen Mammo: December 24, 2019 - Exam #: [id number] Bilateral CC and MLO view(s) were taken. Technologist: Carmen Mason Technologist Prior study comparison: December 12, 2018, bilateral digital woman screen mammo performed at [facility]. November 20, 2017, bilateral digital woman screen mammo performed at [facility]. November 18, 2016, digital woman screen mammo performed at [facility]. FINDINGS: There are scattered fibroglandular densities. The Volpara volumetric breast density category is:B. There has been no change in the appearance of the mammogram from the prior studies. There is a mild amount of scattered fibroglandular density which is fairly symmetric. There is no interval development of dominant mass, architectural distortion, or grouped microcalcification suggestive of malignancy. 3-D tomosynthesis shows no additional findings. Assessment: BI-RADS/ACR category 1 mammogram. Negative Mammogram. Recommendation Routine screening mammogram of both breasts in 1 year (for women over age 40). This patient's Lifetime Breast Cancer Risk is estimated at 14.2 %. This mammogram was interpreted with the aid of an FDA-approved computer-aided dectection system. Electronically Signed By: Juve Amin MD 12/25/19 3175
== END ==
LOC: M WHC 13:32
PROVIDERS: ATTEND Family Medicine
DX: Z12.31 Encounter for screening mammogram for malignant neoplasm of breast (principal)

== ENCOUNTER → 2020-03-02 | Outpatient (REF) | payer MEDICAID, MEDICARE | LOC: M SFHCWAGY 12:56 | PROVIDERS: ATTEND Nurse Practitioner Family | DX: Z12.4 Encounter for screening for malignant neoplasm of cervix (principal) ==

== ENCOUNTER → 2020-04-06 | Outpatient (REF) | payer MEDICARE, MEDICAID ==
[2020-04-06 10:31] LABS: APPEARANCE, URINE CLOUDY (CLEAR); BACTERIA, URINE AUTO 1+ (NEGATIVE); BILIRUBIN, URINE AUTO NEGATIVE (NEGATIVE); BLOOD, URINE BLOOD 3+ (NEGATIVE); COLOR, URINE AMBER (YELLOW); GLUCOSE, URINE (UA) AUTO NEGATIVE (NEGATIVE); KETONE, URINE AUTO TRACE mg/dL (NEGATIVE); LEUKOCYTE ESTERASE, URINE AUTO NEGATIVE (NEGATIVE); MUCUS, URINE SMALL (NEGATIVE); NITRITE, URINE AUTO NEGATIVE (NEGATIVE); PROTEIN, URINE AUTO 2+ mg/dL (NEGATIVE); RBC, URINE AUTO 51 /HPF (0-3); SPECIFIC GRAVITY URINE AUTO 1.031 (1.002-1.035); SQUAMOUS EPITHELIAL CELL UR AU 10 /HPF (0-6); WBC, URINE AUTO 8 /HPF (0-3)
[2020-04-06 11:11] LABS: ALBUMIN 3.1 GM/DL (3.2-5.2); ALT/SGPT 13 U/L (12-78); BILIRUBIN,TOTAL 0.4 MG/DL (0.2-1.0); BLOOD UREA NITROGEN 23 MG/DL (7-18); CALCIUM LEVEL 8.5 MG/DL (8.5-10.1); CARBON DIOXIDE LEVEL 30 MEQ/L (21-32); CHLORIDE LEVEL 104 MEQ/L (98-107); CHOLESTEROL LEVEL 169 MG/DL (<200); CREATININE FOR GFR 0.88 MG/DL (0.55-1.30); FREE T4 1.12 NG/DL (0.76-1.46); GLOMERULAR FILTRATION RATE > 60.0 (>58); GLUCOSE, FASTING 88 MG/DL (70-100); HDL CHOLESTEROL 48 MG/DL (>40); LDL CHOLESTEROL 85 MG/DL (<100); NON-HDL-C 121 MG/DL; POTASSIUM SERUM 4.3 MEQ/L (3.5-5.1); SODIUM LEVEL 138 MEQ/L (136-145); TOTAL PROTEIN 7.1 GM/DL (6.4-8.2); TRIGLYCERIDES LEVEL 178 MG/DL (<150)
[2020-04-06 11:12] LABS: PTH INTACT 91.7 PG/ML (18.5-88.0); TOTAL 25(OH) VITAMIN D 67.8 NG/ML (30.0-100.0)
[2020-04-06 11:29] LABS: MAU/CREAT RATIO 24.8 MCG/MG (0.0-30.0)
[2020-04-06 11:40] LABS: HEMOGLOBIN A1c 5.7 %
[2020-04-06 14:51] LABS: ALBUMIN % 47.8 % (55.8-66.1); ALPHA-1-GLOBULIN % 5.9 % (2.9-4.9); ALPHA-2-GLOBULINS % 13.3 % (7.1-11.8); BETA-1-GLOBULINS % 8.2 % (4.7-7.2); BETA-2-GLOBULINS % 8.4 % (3.2-6.5)
[2020-04-06 14:52] LABS: ALBUMIN 3.39 GM/DL (3.29-5.55); ALPHA-1-GLOBULINS 0.42 GM/DL (0.17-0.41); ALPHA-2-GLOBULINS 0.94 GM/DL (0.42-0.99); BETA-1-GLOBULINS 0.58 GM/DL (0.28-0.60); GAMMA GLOBULIN % 16.4 % (11.1-18.8); GAMMA GLOBULINS 1.16 GM/DL (0.65-1.58)
== END ==
LOC: M PLALAB 08:22
PROVIDERS: ATTEND Family Medicine
DX: E55.9 Vitamin D deficiency, unspecified (principal); R73.01 Impaired fasting glucose; E88.09 Other disorders of plasma-protein metabolism, not elsewhere classified; Z79.899 Other long term (current) drug therapy; Z23 Encounter for immunization
CPT/HCPCS: 36415; 80053; 80061; 81001; 82043; 82306; 83036; 83970; 84165; 84439; 84443; 90682; G0008

== ENCOUNTER → 2020-04-22 | Outpatient (CLI) | payer SELFPAY | LOC: M LABSMTC 13:46 | PROVIDERS: ATTEND Pediatrics | DX: Z11.59 Encounter for screening for other viral diseases (principal) ==

== ENCOUNTER 2020-05-16 12:38 | Emergency (ER) | payer MEDICAID, MEDICARE ==
[~2020-05-16] VITALS: Ht 160 cm; Wt 110.8 kg
[2020-05-16 12:38] VITALS: BP 145/86
--- OUTSIDE RECORDS SUMMARY | 2020-05-16 12:45 | CCD ---
Author Author [facility] Organization [facility] Address Unknown Phone Unavailable Care Team Providers Care Airway Controller Name Role Phone Reynold Friedman Unavailable PROBLEMS Type Condition ICD9-CM Code ICS89-LK Code Onset Dates Condition S tatus SNOMED Code Notes Problem Epilepsy, unspecified, not intractable, without status epilepticus G40.909 Active 18156720 Problem Vitamin D deficiency, unspecified E55.9 Active 07087702 Problem Mixed hyperlipidemia E78.2 Active 632639630 Problem Hypoalbuminemia E88.09 Active 480724440 Problem Endocervical polyp N84.1 Active 5687871 Problem Obesity E66.9 Active 546035150 Problem Recurrent urinary tract infection N39.0 Active 704074813 Problem Essential hypertension I10 Active 15179769 Problem Leukocytosis, unspecified type D72.829 Active 1 73007963 Problem Cervical cancer screening Z12.4 Active 590133 001 Problem Breast cancer screening Z12.39 Active 86518909 6 Problem Uterine leiomyoma, unspecified location D25.9 Active 78026058 Problem PMDD (premenstrual dysphoric disorder) F32.81 A ctive 902902 Problem Palpitations R00.2 Active 34964413 Problem Seizure disorder G40.909 Active 261921234 Problem B12 deficiency E53.8 Active 246662756 Problem Gastroesophageal reflux disease, esophagitis pre sence not specified K21.9 Active 789498381 Problem Overactive bladder N32.81 Active 089140706 Problem Microscopic hematuria R31.29 Active 931758459 Problem Hypothyroidism, unspecified E03.9 Active 4093 0008 Problem IFG (impaired fasting glucose) R73.01 Active 3 22449805 Problem Abnormal uterine bleeding (AUB) N93.9 Active 67982182311586 Problem Asperger syndrome F84.5 Active 87823167 Problem Spondylosis of cervical region without myelopath y or radiculopathy M47.812 Active 233547337 Problem Periodic limb movement disorder G47.61 Active 025122334 ALLERGIES Allergen (clinical drug ingredient) Drug/Non Drug Allergy do cumented on EMR Reaction Allergy Type Onset Date Status sertraline Zoloft([facility] Code:[address]-07) Hives Drug Allergy Active Benadryl Hives Drug Allergy Active nitrofurantoin, macrocrystals / nitrofurantoin, monohy drate Macrobid([facility] Code:[address]-06) Hives Drug Allergy Active cephalexin Keflex Rash Drug Allergy Active phenytoin Dilantin([facility] Code:[address]-53) Hives Drug Allergy Active frisium rash, lump in throat Non Drug Allergy Active carbamazepine Tegretol([facility] Code:[address]-03) Hives Drug Allerg y Active Sulfa (for allergy use only) Rash Drug Allergy Active topiramate Topamax([facility] Code:[address]-52) Kidney Stones Drug Allergy Active Septra Hives Drug Allergy Active ENCOUNTERS from 1976 to 2020-03-25 Encounter Location Date Provider Diagnosis [address] [address] Mar, 020 Reynold Friedman IMMUNIZATIONS Vaccine Route Administration Date Status TDAP 0.5mL (Boostrix) IM Intramuscular Apr 13, 2010 Administe red Influenza (6mo & up) Fluzone IM Intramuscular Mar 09, 2018 Ad ministered Influenza (6mo & up) Fluzone IM Intramuscular Mar 02, 2017 Ad ministered Influenza (6mo & up) Fluzone IM Intramuscular Feb 15, 2016 Ad ministered Influenza (6mo & up) Fluzone IM Intramuscular Feb 17, 2015 Ad ministered Influenza (6mo & up) Fluzone IM Intramuscular Feb 06, 2014 Ad ministered zz*PPD (DO NOT USE) Unknown July 15, 2011 Administered Influenza (6mo & up) Fluzone IM Intramuscular Feb 14, 2013 Ad ministered Influenza (18 yrs & older) Flublok IM Intramuscular Feb 26, 2019 Administered Influenza (6mo & up) Fluzone IM Intramuscular Mar 14, 2012 Ad ministered Influenza (6mo & up) Fluzone IM Intramuscular Mar 02, 2011 Ad ministered SOCIAL HISTORY Tobacco Use: Social History Observation Description Date Details (start date - stop date) Never Smoker Sex Assigned At : Social History Observation Description Sex Assigned At Unknown Audit Question Answer Notes Total Score: 0 Interpretation: Alcohol Education Episcopal: Question Answer Notes [employer] 05 [employer] Sexual Hx: Question Answer Notes Had sex in the last 12 months (vaginal, oral, or anal)? No Have you ever had an STD? No Drug and Alcohol Question Answer Notes Total Score: 0 Interpretation: No problems reported Alcohol Screening: Question Answer Notes Did you have a drink containing alcohol in the past year? No Points 0 Interpretation Negative BMI Care Goal Follow-Up Question Answer Notes Above Normal BMI Follow-Up Giving encouragement to exercise Tobacco Use: Question Answer Notes Are you a: never smoker never smoker REASON FOR REFERRAL No Information VITAL SIGNS No information MEDICATIONS Medication SIG (Take, Route, Frequency, Duration) Notes Start Da te End Date Status Levothyroxine Sodium 25 MCG 1 tablet Orally Once a day for 90 Active Ibuprofen 400 MG 1 tablet with food or milk a s needed Orally every 8 hours prn cervical pain Active Omeprazole 20 MG 1 capsule Orally Once a day for 30 day(s) Active Ergocalciferol 58279 UNIT 1 capsule Orally every 7 days for 30 day(s) Active VESIcare 10 mg 1 tablet Orally Once a day for 30 Active Keppra XR 500mg 2 tabs Orally twice daily- Active Depakote ER 250 MG 3 tablets Orally Twice a day Active Tums Ultra 1000 1000 MG 1 tablet Orally daily as needed Active Aviane 0.1-20 MG-MCG 1 tablet Orally Once a day for 28 day(s) Active Cyanocobalamin 500 MCG 1 tablet Orally Once a day for 30 day(s) Active Fluoxetine 20 MG 1 cap Orally twice daily Active Atorvastatin Calcium 80 MG TAKE ONE TABLET BY MOUTH EVERY DAY for 30 Active Haldol 1 mg tab orally daily as needed Active PROCEDURES No Information RESULTS No Results REASON FOR VISIT flu shot MEDICAL (GENERAL) HISTORY Type Description Date Medical History interstitial cystitis Medical History UTI, recurrence Medical History incontinence, urge Medical History Asperger's syndrome/MDD Medical History seizure disorder-11/2017 diff use parenchymal loss of B posterior frontal, parietal lobes Medical History hyperlipidemia 2B Medical History history of nephrolithiasis Medical History impaired fasting glucose Medical History premenstrual dysphoric disorder Medical History vitamin D deficiency Medical History chronic low serum albumin-03/2004 albumi n 3.0-favor 2 AED use Medical History obesity Medical History fibroid uterus Medical History R first toe distal phalanx N P fracture 2 mechanical trauma-04/14/17 Medical History thrombophlebitis right anterior thigh Medical History L shoulder calcific tendonitis-by 09/2017 xray Medical History PLMS s NATANAEL by 03/2018 NPSG 03/2018-[facility] Surgical History appendectomy 1986 Surgical History cystoscopy 06/2019 Hospitalization History seizures 1980 Hospitalization History sepsis,appendicitis 1985 Hospitalization History seizures, nephritis 1987 Goals Section No Information Health Concerns No Information MEDICAL EQUIPMENT No Information MENTAL STATUS No Information FUNCTIONAL STATUS No Information ASSESSMENTS No Information PLAN OF TREATMENT Medication Medication Name Sig Start Date Stop Date VESIcare 10 mg 1 tablet Orally Once a day for 30 Atorvastatin Calcium 80 MG TAKE ONE TABLET BY MOUTH EVERY DAY fo r 30 Aviane 0.1-20 MG-MCG 1 tablet Orally Once a day for 28 day(s) Ergocalciferol 01048 UNIT 1 capsule Orally every 7 days for 30 d ay(s) Next Appt Details Provider Name:Reynold Friedman, 2020-04-06 0 9:15:00 AM, [address] [place] [address], [phone], Provider Name:Reynold Friedman, 2020-04-13 0 1:15:00 PM, [address] [place] [address], [phone], Provider Name:Nata Knapp, 2021-03-04 11:00:00 AM, [address] [place] [address], [phone], Insurance Providers Payer Name Payer Address Payer Phone Insured Name Patient Relati onship to Insured Coverage Start Date Coverage End Date MEDICARE PART A ONLY [address] [facility] [id number] ISAURA RICHARDSON MEDICAID [place] [address] [place] [address] ISAURA RICHARDSON
--- OUTSIDE RECORDS SUMMARY | 2020-05-16 12:45 | CCD | Continuity of Care Document ---
Author Author Jenelle SALCIDO P.A.-C. Organization Unknown Address [address] [place] [address] Phone [phone] Problems Description No Information Available Social History Type Date Description Comments Sex Unknown Allergies, Adverse Reactions, Alerts Active Allergies Reaction Severity Comments Date Dilantin 03/23/2010 Benadryl liquid 03/23/2010 Tegretol 03/23/2010 Sulfa Antibiotics 03/23/2010 Frizium Drug used in [place] for seiz ures 03/23/2010 Zoloft 03/23/2010 Macrodantin rash 09/28/2010 Keflex general itch 10/08/2012 Medications Active Medications SIG Qnty Indications Ordering Provide r Date Keppra XR 500mg Tablets ER 24HR Take Two Tablets By Mouth Twice A Day 120tabs Jazzmine Leon M.D. 0 06/26/2015 Depakote ER 250mg Tablets ER 24HR Take Three Tablets By Mouth Twice A Day 180tabs Jazzmine Leon M.D. 04/13/2011 Immunizations Description No Information Available Vital Signs Date Vital Result Comment 11/11/2019 7:49am BP Systolic 110 mmHg BP Diastolic 70 mmHg Heart Rate 76 /min Respiratory Rate 20 /min 05/13/2019 11:07am BP Systolic 130 mmHg BP Diastolic 80 mmHg Heart Rate 76 /min Respiratory Rate 16 /min Results Test Acquired Date Facility Test Result H/L Range Note Laboratory test finding 11/14/2019 [facility] Valproic Acid (Depakote) 74.4 UG/ML Normal 50.0-100.0 Levetiracetam (Keppra) 31.4 ug/mL Normal 10.0-40.0 1 1 This test was developed and its performance characteristics determined by [facility]. It has not been cleared or approved by the Food and Drug Administration. Performed at: [address] [id number] Clothes Drier Repairer: Janel Julien MD, Phone: [phone] Procedures Description No Information Available Medical Devices Description No Information Available Encounters Type Date Location Provider Dx Diagnosis Office Visit 05/13/2020 10:00a Main office - Omar Purvi gant P.A.-C. 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 05/13/2020 G25.3 Myoclonus Purvi Salcido P.A.-C. 05/13/2020 G25.0 Essential tremor Purvi Salcido P.A.-C. 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 Plan of Treatment 05/13/2020 - Purvi Salcido P.A.-C.* G40.309 Generalized idiopathic epilepsy and epileptic syndromes, not* Comments:* Controlled. Lab order faxed to [facility] for Depakote and Keppra levels. Her mother states that recent CBC and metabolic panel were normal at her PCP office. * G25.3 Myoclonus* Comments:* Controlled. Continue current medications. * G25.0 Essential tremor* Comments:* Stable. 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 No evidence of NATANAEL on sleep study. Follow up with behavioral health. * Follow up:* 6 months. Functional Status Description No Information Available Mental Status Description No Information Available Referrals Refer to Reason for Referral Status Appt Date Jazzmine Leon M.D. Created [facility] [address] [id number] [phone]
--- OUTSIDE RECORDS SUMMARY | 2020-05-16 12:45 | CCD ---
[facility] Organization Unknown Address [address] [place] [address] Phone Care Team Providers Care Photocopying Equipment Repairer Name Role Phone Griselda Morales PCP Allergies, Adverse Reactions, Alerts No Data in Section Problem List Concept Problem Description Status Start Date Created Date Resolv ed Date Snomed Code F33.0 Major Depressive Disorder, Recurrent episode, Mild Act carlos 03/19/2015 03/19/2015 F84.0 Autism Spectrum Disorder Active 07/13/2016 07/13/2016 Medications Rx Norm Medication Route Route Concept Start Date Stop Date Dosage Danyel quency Duration Formula Strength Dosage Form Dosage Form Code Dosage Description Medication Id Account Npid Author First Name Author Last Name Taxonomy Code Taxonomy Desc Phone Number [phone] haloperidol 05/28/2015 once a day 1 mg tablet as needed [id number] [phone] Nikki German [id number] Psychiatric/Mental Health [phone] [id number] fluoxetine by mouth [id number] 05/17/2017 twice a day 20 mg ca psule 05618 [id number] Bhavana Parham [id number] Psychiatric/Mental Health [id number] Social History Social History Element Description Concept Effective Date Smoking Status Unknown if ever smoked [id number] Immunizations No Data in Section Vital Signs No Data in Section Procedures Date Concept Id Description Targeted Site Concept Targeted Site Concept Type 02/26/2020 07419 Extended Individual Psychotherapy - 45 min CPT Patient has no history of implantable de vices Encounters Encounter Start Date End Date Encounter Type Description Diagnosis Di agnosis Desc Location Author First Name Author Last Name Npid Taxonomy Cod e Taxonomy Desc Phone Number Location Addr1 Location Addr2 Location City Location Sta te Location Zip [id number] 02/26/2020 02/26/2020 23835 Extended Individual Psych otherapy - 45 min F33.0 Major depressive disorder, recurrent, mild [facility] [phone] [id number] Art Therapist [phone] [address] [place] [address] [place] [phone] Plan of Treatment No Data in Section Lab Results No Data in Section Instructions No Data in Section Insurance Providers Insurance Id Policy Effective Date Policy Thru Date Company Arsen arreguin [id number] MEDICAID
--- OUTSIDE RECORDS SUMMARY | 2020-05-16 12:45 | CCD ---
Author Author [facility] Organization [facility] Address Unknown Phone Unavailable Care Team Providers Care Fraud Prevention Analyst Name Role Phone Nata Knapp Unavailable PROBLEMS Type Condition ICD9-CM Code [id number] Code Onset Dates Condition S tatus SNOMED Code Notes Problem Epilepsy, unspecified, not intractable, without status epilepticus G40.909 Active 05106028 Problem Vitamin D deficiency, unspecified E55.9 Active 61797322 Problem Mixed hyperlipidemia E78.2 Active 284578286 Problem Hypoalbuminemia E88.09 Active 807115663 Problem Endocervical polyp N84.1 Active 9402628 Problem Obesity E66.9 Active 477486109 Problem Recurrent urinary tract infection N39.0 Active 278574664 Problem Essential hypertension I10 Active 49883109 Problem Leukocytosis, unspecified type D72.829 Active 1 79562252 Problem Cervical cancer screening Z12.4 Active 122800 001 Problem Breast cancer screening Z12.39 Active 22380958 6 Problem Uterine leiomyoma, unspecified location D25.9 Active 67527046 Problem PMDD (premenstrual dysphoric disorder) F32.81 A ctive 157503 Problem Palpitations R00.2 Active 70180990 Problem Seizure disorder G40.909 Active 017831315 Problem B12 deficiency E53.8 Active 644128983 Problem Gastroesophageal reflux disease, esophagitis pre sence not specified K21.9 Active 488341504 Problem Overactive bladder N32.81 Active 383343860 Problem Microscopic hematuria R31.29 Active 551739575 Problem Hypothyroidism, unspecified E03.9 Active 4093 0008 Problem IFG (impaired fasting glucose) R73.01 Active 3 34407682 Problem Abnormal uterine bleeding (AUB) N93.9 Active 10633911678897 Problem Asperger syndrome F84.5 Active 93457903 Problem Spondylosis of cervical region without myelopath y or radiculopathy M47.812 Active 919637504 Problem Periodic limb movement disorder G47.61 Active 500557127 ALLERGIES Allergen (clinical drug ingredient) Drug/Non Drug Allergy do cumented on EMR Reaction Allergy Type Onset Date Status sertraline Zoloft([facility] Code:[address]-85) Hives Drug Allergy Active Benadryl Hives Drug Allergy Active nitrofurantoin, macrocrystals / nitrofurantoin, monohy drate Macrobid([facility] Code:[address]-38) Hives Drug Allergy Active cephalexin Keflex Rash Drug Allergy Active phenytoin Dilantin([facility] Code:[address]-51) Hives Drug Allergy Active frisium rash, lump in throat Non Drug Allergy Active carbamazepine Tegretol([facility] Code:[address]-41) Hives Drug Allerg y Active Sulfa (for allergy use only) Rash Drug Allergy Active topiramate Topamax([facility] Code:[address]-19) Kidney Stones Drug Allergy Active Septra Hives Drug Allergy Active ENCOUNTERS from 1976 to 2020-03-17 Encounter Location Date Provider Diagnosis [facility] [address] [place] [address] Mar, Nata Knapp Encounter for gyneco logical examination without abnormal finding Z01.419 ; Breast screening Z12.39 and Surveillance for control, oral contraceptives Z30.41 IMMUNIZATIONS Vaccine Route Administration Date Status TDAP [...] Notes Total Score: 0 Interpretation: Alcohol Education Druze: Question Answer Notes Druze 05 Adventism Sexual Hx: Question Answer Notes Had sex [...] REASON FOR REFERRAL No Information VITAL SIGNS Weight 239 lbs Mar, Height 63.5 in Mar, BMI 41.67 kg/m2 Mar, Blood pressure systolic 124 mm Hg Mar, Blood pressure diastolic 82 mm Hg Mar, MEDICATIONS Medication SIG (Take, Route, Frequency, Duration) Notes Start Da te End Date Status Keppra XR 500mg 2 tabs Orally twice daily-SRIDHAR Active Haldol 1 mg tab orally daily as needed Active Ibuprofen 400 MG 1 tablet with food or milk a s needed Orally every 8 hours prn cervical pain Active Tums Ultra 1000 1000 MG 1 tablet Orally daily as needed Active Ergocalciferol 83398 UNIT 1 capsule Orally every 7 days for 30 day(s) Active Atorvastatin Calcium 80 MG 1 tablet Orally Once a day for 90 day(s) Active Fluoxetine 20 MG 1 cap Orally twice daily Active Cyanocobalamin 500 MCG 1 tablet Orally Once a day for 30 day(s) Active VESIcare 10 mg 1 tablet Orally Once a day for 30 Active Depakote ER 250 MG 3 tablets Orally Twice a day Active Aviane 0.1-20 MG-MCG 1 tablet Orally Once a day for 28 day(s) Active Omeprazole 20 MG 1 capsule Orally Once a day for 30 day(s) Active Levothyroxine Sodium 25 MCG 1 tablet Orally Once a day for 90 Active PROCEDURES No Information RESULTS Component Value Reference Range PAP REQUEST FOR SERVICE Reviewed date:03/05/2020 13:48:51 Interpretation:Negative hpv neg Performing Lab:Formerly [facility], [facility] [address] [facility] [address] , ,[facility] PAP REQUEST FOR SERVICE Reviewed date:03/10/2020 10:35:47 Interpretation:Negative hpv neg Performing Lab:Formerly [facility], [facility] [address] [facility] [address] , ,[facility] REASON FOR VISIT ANNUAL MEDICAL (GENERAL) HISTORY Type Description Date Medical [...] by 03/2018 NPSG 03/2018-[facility] Surgical History appendectomy 1985 Surgical History cystoscopy 06/2019 Hospitalization History seizures 1979 Hospitalization History sepsis,appendicitis 1985 Hospitalization History seizures, nephritis 1987 Goals Section No Information Health Concerns No Information MEDICAL EQUIPMENT No Information MENTAL STATUS No Information FUNCTIONAL STATUS No Information ASSESSMENTS Encounter Date Diagnosis Assessment Notes Treatment Notes Treatm ent Clinical Notes Mar, Encounter for gynecological examination without abnormal finding (ICD-10 - Z01.419) Mar, Breast screening (ICD-10 - Z12.39) Mar, Surveillance for contr ol, oral contraceptives (ICD-10 - Z30.41) PLAN OF TREATMENT Medication Medication Name Sig Start Date Stop Date Aviane 0.1-20 MG-MCG 1 tablet Orally Once a day for 28 day(s) Ergocalciferol 77998 UNIT 1 capsule Orally every 7 days for 30 d ay(s) Next Appt Details 1 Year Reason: Provider Name:Reynold Friedman, 2020-04-13 0 1:15:00 PM, [address] [place] [address], [phone], Provider Name:Nata Knapp, 2021-03-04 11:00:00 AM, [address] [place] [address], [phone], Insurance Providers Payer Name Payer Address Payer Phone Insured Name Patient Relati onship to Insured Coverage Start Date Coverage End Date MEDICAID [employer] [address] [facility] [address] [place] MEDICARE PART A ONLY [address] [facility] [address] ISAURA RACHEL
--- OUTSIDE RECORDS SUMMARY | 2020-05-16 12:45 | CCD ---
Author Author [facility] Organization [facility] Address Unknown Phone Unavailable Care Team Providers Care Passenger Car Conductor Name Role Phone Nata Knapp Unavailable PROBLEMS Type Condition ICD9-CM Code GBB16-YR Code Onset Dates Condition S tatus SNOMED Code Notes Problem Epilepsy, unspecified, not intractable, without status epilepticus G40.909 Active 92562550 Problem Vitamin D deficiency, unspecified E55.9 Active 59943320 Problem Mixed hyperlipidemia E78.2 Active 011168137 Problem Hypoalbuminemia E88.09 Active 291854944 Problem Endocervical polyp N84.1 Active 9132419 Problem Obesity E66.9 Active 234316967 Problem Recurrent urinary tract infection N39.0 Active 485955868 Problem Essential hypertension I10 Active 49558031 Problem Leukocytosis, unspecified type D72.829 Active 1 47430558 Problem Cervical cancer screening Z12.4 Active 478369 001 Problem Breast cancer screening Z12.39 Active 29962102 6 Problem Uterine leiomyoma, unspecified location D25.9 Active 62810690 Problem PMDD (premenstrual dysphoric disorder) F32.81 A ctive 934020 Problem Palpitations R00.2 Active 05070676 Problem Seizure disorder G40.909 Active 976371354 Problem B12 deficiency E53.8 Active 639998969 Problem Gastroesophageal reflux disease, esophagitis pre sence not specified K21.9 Active 126463405 Problem Overactive bladder N32.81 Active 927946959 Problem Microscopic hematuria R31.29 Active 616392416 Problem Hypothyroidism, unspecified E03.9 Active 4093 0008 Problem IFG (impaired fasting glucose) R73.01 Active 3 69081116 Problem Abnormal uterine bleeding (AUB) N93.9 Active 83072964848240 Problem Asperger syndrome F84.5 Active 10393846 Problem Spondylosis of cervical region without myelopath y or radiculopathy M47.812 Active 025232937 Problem Periodic limb movement disorder G47.61 Active 056429007 ALLERGIES Allergen (clinical drug ingredient) Drug/Non Drug Allergy do cumented on EMR Reaction Allergy Type Onset Date Status sertraline Zoloft([facility] Code:[address]-71) Hives Drug Allergy Active Benadryl Hives Drug Allergy Active nitrofurantoin, macrocrystals / nitrofurantoin, monohy drate Macrobid([facility] Code:[address]-33) Hives Drug Allergy Active cephalexin Keflex Rash Drug Allergy Active phenytoin Dilantin([facility] Code:[address]-29) Hives Drug Allergy Active frisium rash, lump in throat Non Drug Allergy Active carbamazepine Tegretol([facility] Code:[address]-17) Hives Drug Allerg y Active Sulfa (for allergy use only) Rash Drug Allergy Active topiramate Topamax([facility] Code:[address]-81) Kidney Stones Drug Allergy Active Septra Hives Drug Allergy Active ENCOUNTERS from 1976 to 2020-02-24 Encounter Location Date Provider Diagnosis [facility] [address] [place] [id number] Jan, Nata Knapp Abnormal uterine ble eding (AUB) N93.9 IMMUNIZATIONS Vaccine Route Administration Date Status TDAP [...] Notes Total Score: 0 Interpretation: Alcohol Education Congregational: Question Answer Notes Congregational 05 Baptism Sexual Hx: Question Answer Notes Had sex [...] MEDICATIONS Medication SIG (Take, Route, Frequency, Duration) Start Date En d Date Status Cyanocobalamin 500 MCG 1 tablet Orally Once a day for 30 day(s) Active Keppra XR 500mg 2 tabs in am and 3tabs at rust Orally twice daily-SRIDHAR for 30 day(s) Active Ibuprofen 400 MG 1 tablet with food or milk a s needed Orally every 8 hours prn cervical pain Active Depakote ER 250 MG 3 tablets Orally Twice a day Active Levothyroxine Sodium 25 MCG 1 tablet Orally Once a day for 30 day(s ) Active Atorvastatin Calcium 80 MG 1 tablet Orally Once a day for 90 day(s) Active Aviane 0.1-20 MG-MCG 1 tablet Orally Once a day for 28 days Active Tums Ultra 1000 1000 MG 1 tablet Orally daily for 30 day(s) Active VESIcare 10 mg 1 tablet Orally Once a day for 30 Active Omeprazole 20 MG 1 capsule Orally Once a day for 30 day(s) Active Ergocalciferol 12762 UNIT 1 capsule Orally every 7 days for 30 day( s) Active Fluoxetine 20 MG 1 cap Orally Daily Activ e PROCEDURES No Information RESULTS No Results REASON FOR VISIT OCP MEDICAL (GENERAL) HISTORY Type Description Date Medical [...] History sepsis,appendicitis 1985 Hospitalization History seizures, nephritis 1986 Goals Section No Information Health Concerns No Information MEDICAL EQUIPMENT No Information MENTAL STATUS No Information FUNCTIONAL STATUS No Information ASSESSMENTS Encounter Date Diagnosis Notes Jan, Abnormal uterine bleeding (AUB) (ICD-10 - N93.9) PLAN OF TREATMENT Medication Medication Name Sig Start Date Stop Date Cyanocobalamin 500 MCG 1 tablet Orally Once a day for 30 day(s) Omeprazole 20 MG 1 capsule Orally Once a day for 30 day(s) Ergocalciferol 29362 UNIT 1 capsule Orally every 7 days for 30 d ay(s) Ibuprofen 400 MG 1 tablet with food or milk a s needed Orally every 8 hours prn cervical pain Tums Ultra 1000 1000 MG 1 tablet Orally daily for 30 day(s) VESIcare 10 mg 1 tablet Orally Once a day for 30 Depakote ER 250 MG 3 tablets Orally Twice a day Keppra XR 500mg 2 tabs in am and 3tabs at ni ght Orally twice daily-SRIDHAR for 30 day(s) Levothyroxine Sodium 25 MCG 1 tablet Orally Once a day for 30 da y(s) Atorvastatin Calcium 80 MG 1 tablet Orally Once a day for 90 day (s) Aviane 0.1-20 MG-MCG 1 tablet Orally Once a day for 28 days Fluoxetine 20 MG 1 cap Orally Daily Next Appt Details Provider Name:Nata Aria, 2020-03-02 11:30:00 AM, [address] [place], [address], Provider Name:Reynold Friedman, 2020-04-13 0 1:15:00 PM, [address] [place], [address], Insurance Providers Payer Name Payer Address Payer Phone Insured Name Patient Relati onship to Insured Coverage Start Date Coverage End Date MEDICAID [employer] [address] [facility] [id number] ISAURA RACHEL self
--- OUTSIDE RECORDS SUMMARY | 2020-05-16 12:45 | CCD ---
Author Author [facility] Organization [facility] Address Unknown Phone Unavailable Care Team Providers Care Director Talent [employer] Name Role Phone Reynold Friedman Unavailable PROBLEMS Type Condition ICD9-CM Code HOX88-NE Code Onset Dates Condition S tatus SNOMED Code Notes Problem Epilepsy, unspecified, not intractable, without status epilepticus G40.909 Active 78368194 Problem Vitamin D deficiency, unspecified E55.9 Active 02783512 Problem Mixed hyperlipidemia E78.2 Active 891529593 Problem Hypoalbuminemia E88.09 Active 623703474 Problem Endocervical polyp N84.1 Active 2735933 Problem Obesity E66.9 Active 080969057 Problem Recurrent urinary tract infection N39.0 Active 177011372 Problem Essential hypertension I10 Active 38699891 Problem Leukocytosis, unspecified type D72.829 Active 1 43548251 Problem Cervical cancer screening Z12.4 Active 971243 001 Problem Breast cancer screening Z12.39 Active 05693033 6 Problem Uterine leiomyoma, unspecified location D25.9 Active 64479029 Problem PMDD (premenstrual dysphoric disorder) F32.81 A ctive 824296 Problem Palpitations R00.2 Active 11098575 Problem Seizure disorder G40.909 Active 731903848 Problem B12 deficiency E53.8 Active 207372563 Problem Gastroesophageal reflux disease, esophagitis pre sence not specified K21.9 Active 711664813 Problem Overactive bladder N32.81 Active 346727018 Problem Microscopic hematuria R31.29 Active 014595102 Problem Hypothyroidism, unspecified E03.9 Active 4093 0008 Problem IFG (impaired fasting glucose) R73.01 Active 3 52263042 Problem Abnormal uterine bleeding (AUB) N93.9 Active 31842918113846 Problem Asperger syndrome F84.5 Active 91714917 Problem Spondylosis of cervical region without myelopath y or radiculopathy M47.812 Active 748463213 Problem Periodic limb movement disorder G47.61 Active 407426519 ALLERGIES Allergen (clinical drug ingredient) Drug/Non Drug Allergy do cumented on EMR Reaction Allergy Type Onset Date Status sertraline Zoloft([facility] Code:[address]-08) Hives Drug Allergy Active Benadryl Hives Drug Allergy Active nitrofurantoin, macrocrystals / nitrofurantoin, monohy drate Macrobid([facility] Code:[address]-32) Hives Drug Allergy Active cephalexin Keflex Rash Drug Allergy Active phenytoin Dilantin([facility] Code:[address]-62) Hives Drug Allergy Active frisium rash, lump in throat Non Drug Allergy Active carbamazepine Tegretol([facility] Code:[address]-59) Hives Drug Allerg y Active Sulfa (for allergy use only) Rash Drug Allergy Active topiramate Topamax([facility] Code:[address]-96) Kidney Stones Drug Allergy Active Septra Hives Drug Allergy Active ENCOUNTERS from 1976 to 2020-03-16 Encounter Location Date Provider Diagnosis [address] [address] Mar, 020 Reynold Friedman Vitamin D deficiency, unspecified E55.9 IMMUNIZATIONS Vaccine Route Administration Date Status TDAP [...] Education Congregational: Question Answer Notes Congregational 05 Congregational Sexual Hx: Question Answer Notes Had sex [...] tablet Orally daily as needed Active Ergocalciferol 40157 UNIT 1 capsule Orally every 7 days [...] for 90 Active PROCEDURES No Information RESULTS No Results REASON FOR VISIT New Refill Request MEDICAL (GENERAL) HISTORY Type Description Date Medical [...] Treatment Notes Treatm ent Clinical Notes Mar, Vitamin D deficiency, unspecified (ICD-10 - E55. 9) PLAN OF TREATMENT Medication Medication Name Sig Start Date Stop Date Aviane 0.1-20 MG-MCG 1 tablet Orally Once a day for 28 day(s) Ergocalciferol 27016 UNIT 1 capsule Orally every 7 days for 30 d ay(s) Next Appt Details Provider Name:Reynold Friedman, 2020-04-13 0 1:15:00 PM, [address] [place] [address], [phone], Provider Name:Nata Knapp, 2021-03-04 11:00:00 AM, [address] [place] [address], [phone], Insurance Providers Payer Name Payer Address Payer Phone Insured Name Patient Relati onship to Insured Coverage Start Date Coverage End Date MEDICAID [employer] [address] [facility] [address] [place] MEDICARE PART A ONLY [address] [facility] [address] ISAURA RICHARDSON
--- OUTSIDE RECORDS SUMMARY | 2020-05-16 12:45 | CCD ---
Author Author [facility] Organization [facility] Address Unknown Phone Unavailable Care Team Providers Care Repairer [employer] Name Role Phone Reynold Friedman Unavailable PROBLEMS Type Condition ICD9-CM Code WQO89-ZA Code Onset Dates Condition S tatus SNOMED Code Notes Problem Epilepsy, unspecified, not intractable, without status epilepticus G40.909 Active 76494450 Problem Vitamin D deficiency, unspecified E55.9 Active 25882379 Problem Mixed hyperlipidemia E78.2 Active 264847615 Problem Hypoalbuminemia E88.09 Active 995032517 Problem Endocervical polyp N84.1 Active 3092040 Problem Obesity E66.9 Active 718350026 Problem Recurrent urinary tract infection N39.0 Active 492996110 Problem Essential hypertension I10 Active 98066486 Problem Leukocytosis, unspecified type D72.829 Active 1 98305183 Problem Cervical cancer screening Z12.4 Active 244127 001 Problem Breast cancer screening Z12.39 Active 45163160 6 Problem Uterine leiomyoma, unspecified location D25.9 Active 32534191 Problem PMDD (premenstrual dysphoric disorder) F32.81 A ctive 601136 Problem Palpitations R00.2 Active 39694054 Problem Seizure disorder G40.909 Active 785567247 Problem B12 deficiency E53.8 Active 302265091 Problem Gastroesophageal reflux disease, esophagitis pre sence not specified K21.9 Active 946338544 Problem Overactive bladder N32.81 Active 151702257 Problem Microscopic hematuria R31.29 Active 211070772 Problem Hypothyroidism, unspecified E03.9 Active 4093 0008 Problem IFG (impaired fasting glucose) R73.01 Active 3 75731232 Problem Abnormal uterine bleeding (AUB) N93.9 Active 47895175809370 Problem Asperger syndrome F84.5 Active 60941410 Problem Spondylosis of cervical region without myelopath y or radiculopathy M47.812 Active 372507411 Problem Periodic limb movement disorder G47.61 Active 071875286 ALLERGIES Allergen (clinical drug ingredient) Drug/Non Drug Allergy do cumented on EMR Reaction Allergy Type Onset Date Status sertraline Zoloft([facility] Code:[address]-78) Hives Drug Allergy Active Benadryl Hives Drug Allergy Active nitrofurantoin, macrocrystals / nitrofurantoin, monohy drate Macrobid([facility] Code:[address]-90) Hives Drug Allergy Active cephalexin Keflex Rash Drug Allergy Active phenytoin Dilantin([facility] Code:[address]-79) Hives Drug Allergy Active frisium rash, lump in throat Non Drug Allergy Active carbamazepine Tegretol([facility] Code:[address]-88) Hives Drug Allerg y Active Sulfa (for allergy use only) Rash Drug Allergy Active topiramate Topamax([facility] Code:[address]-94) Kidney Stones Drug Allergy Active Septra Hives Drug Allergy Active ENCOUNTERS from 1976 to 2020-04-17 Encounter Location Date Provider Diagnosis [address] [address] 14 Mar, 2 020 Reynold Friedman Hypothyroidism, unspecified E03.9 ; Microscopic hematuria R31.29 ; Gastroesophageal reflux disease, esophagitis presence not specified K21.9 ; Abnormal uterine bleeding (AUB) N93.9 ; IFG (impaired fasting glucose) R73.01 ; Periodic limb movement disorder G47.61 ; Spondylosis of cervical region without myelopathy or radiculopathy M47.812 ; Palpitations R00.2 ; B12 deficiency E53.8 ; Mixed hyperlipidemia E78.2 ; Breast cancer screening Z12.39 ; Essential hypertension I10 ; Epilepsy, unspecified, not intractable, without status epilepticus G40.909 ; Vitamin D deficiency, unspecified E55.9 ; Overactive bladder N32.81 ; Recurrent urinary tract infection N39.0 ; Obesity E66.9 ; Hypoalbuminemia E88.09 ; Leukocytosis, unspecified type D72.829 ; Cervical cancer screening Z12.4 ; Asperger syndrome F84.5 and PMDD (premenstrual dysphoric disorder) F32.81 IMMUNIZATIONS Vaccine Route Administration Date Status Influenza (6mo & up) Fluzone IM Intramuscular Mar 02, 2017 Ad ministered Influenza (6mo & up) Fluzone IM Intramuscular Feb 15, 2016 Ad ministered zz*PPD (DO NOT USE) Unknown July 15, 2011 Administered TDAP 0.5mL (Boostrix) IM Intramuscular Apr 13, 2010 Administe red Influenza (6mo & up) Fluzone IM Intramuscular Feb 17, 2015 Ad ministered Influenza (6mo & up) Fluzone IM Intramuscular Feb 06, 2014 Ad ministered Influenza (6mo & up) Fluzone IM Intramuscular Mar 09, 2018 Ad ministered Influenza (6mo & up) Fluzone IM Intramuscular Feb 14, 2013 Ad ministered Influenza (18 yrs & older) Flublok IM Intramuscular Feb 26, 2019 Administered Influenza (6mo & up) Fluzone IM Intramuscular Mar 14, 2012 Ad ministered Influenza (18 yrs & older) Flublok IM Intramuscular Apr 06, 2020 Administered Influenza (6mo & up) Fluzone IM Intramuscular Mar 02, 2011 Ad ministered SOCIAL HISTORY Tobacco Use: Social History Observation Description Date Details (start date - stop date) Never Smoker Sex Assigned At : Social History Observation Description Sex Assigned At Unknown Audit Question Answer Notes Total Score: 0 Interpretation: Alcohol Education Oriental Orthodox: Question Answer Notes Oriental Orthodox 05 Protestant Sexual Hx: Question Answer Notes Had sex [...] FOR REFERRAL No Information VITAL SIGNS Weight 241.6 lbs Mar, Height 63.5 in Mar, BMI 42.12 kg/m2 Mar, Heart Rate 90 /min Mar, Respiratory Rate 20 /min Mar, Temperature 98.3 degrees Fahrenheit Mar, Oximetry 96% Mar, Blood pressure systolic 130 mm Hg Mar, Blood pressure diastolic 82 mm Hg Mar, MEDICATIONS Medication SIG (Take, Route, Frequency, Duration) Notes Start Da te End Date Status Ibuprofen 400 MG 1 tablet with food or milk a s needed Orally every 8 hours prn cervical pain Active Fluoxetine 20 MG 1 cap Orally Daily Active Ergocalciferol 78652 UNIT 1 capsule Orally every 7 days for 30 day(s) Active Aviane 0.1-20 MG-MCG 1 tablet Orally Once a day Active Tums Ultra 1000 1000 MG 1 tablet Orally daily for 30 day(s) Active Cyanocobalamin 500 MCG 1 tablet Orally Once a day for 30 day(s) Active VESIcare 10 mg 1 tablet Orally Once a day for 30 Active Atorvastatin Calcium 80 MG TAKE ONE TABLET BY MOUTH EVERY DAY for 30 Active Atorvastatin Calcium 80 MG 1 tablet Orally Once a day for 90 day(s) Active Depakote ER 250 MG 3 tablets Orally Twice a day Active VESIcare 10 mg 1 tablet Orally Once a day for 30 day(s) Active Keppra XR 500mg 2 tabs in am and 3tabs at ni ght Orally twice daily-SRIDHAR for 30 day(s) Active Omeprazole 20 MG 1 capsule Orally Once a day for 30 day(s) Active Levothyroxine Sodium 25 MCG 1 tablet Orally Once a day for 30 day(s) Active Haldol 1 mg tab orally daily as needed Active PROCEDURES No Information RESULTS No Results REASON FOR VISIT 4 month f/u MEDICAL (GENERAL) HISTORY Type Description Date Medical [...] Treatment Notes Treatm ent Clinical Notes Mar, Hypothyroidism, unspecified (ICD-10 - E03.9) father c thyroid disease 09/2014 - TPO Ab 04/06/20 4.6, 1.1; but missed a "few doses" in the last ~14D 10/03/19 3.7, 1.1 on 06/2018 2.4, 1.0 11/2017 2.5, 0.9 03/2017 2.1 10/2016 3.3, 1.1 01/2015 4.5 c fatigue, therefore started LT4 Mar, Microscopic hematuria (ICD-10 - R31.29) No gross hematuria nor LUTs 07/24/19 [id number] Uro 07/09/19 CT AP s/c hem protocol WNL Mar, Gastroesophageal reflux dise ase, esophagitis presence not specified (ICD-10 - K21.9) Stable on omep 20 qAM 10/2018 given ~3x qW PP burping, ARNALDO x 3M s dysphagia/V/wt loss; therefore, omep 20 qAM c resolution Contingency: push dose Mar, Abnormal uterine bleeding (AUB) (ICD-10 - N93.9) better controlled on combo OCP, rather than PG only-no absolute contraindication for combo Mar, IFG (impaired fasting glucose) (ICD-10 - R73.01) Continue ADA diet/weight loss no DM in 1DR 04/06/20 5.7 10/03/19 5.9 05/2019 5.6 (88, 24) 10/2018 5.6 (87, 20); therefore, dc 12 oz soda QD 06/2018 5.2 c ILIA-IR (80, 17) 06/2015 5.7, therefore encouraged to d/c 24 oz soda QD 04/06/20 25 05/2019 8 05/2018 14 06/2016 VIET/creatinin 18 Mar, Periodic limb movement disorder (ICD-10 - G47.61 ) Patient remains asymptomatic 04/11/18 NPSG s evidence of NATANAEL (AHI 0.4) Mar, Spondylosis of cervical mark on without myelopathy or radiculopathy (ICD-10 - M47.812) Stable on home PT and ibu 400 prn flares 03/2018 SS + baclo 10 TID and ibu 400 TID prn flares Mar, Palpitations (ICD-10 - R00.2) Patient remains asymptomatic 12/2017 given chronicity, checked 30D EV-but solely QHS s presyncope, chest pain, dyspnea with non-symptomatic isolated PAC, multiform PVCs, events NOT aw any ectopy chronic daily ~40 oz coffee daily (decaf) 10/2016 encouraged to slowly reduce caffeine ~1x q2W of asx "skipped beats" lasting seconds 11/25/16 NSR 66 bpm, LAE, PRWP similar to 06/09/09 Mar, B12 deficiency (ICD-10 - E53.8) 10/03/19 12.9, 92,32/2.3 03/2017 hgb 12.7, 94 10/03/19 676 07/2017 749 on 500 QD 03/2017 B12 326; therefore, started 500 QD 07/2017 RBC folate 499 04/06/20 SPEP s M spike 03/2017 sIFE MCB Mar, Mixed hyperlipidemia (ICD-10 - E78.2) 04/06/20 85/48/178 10/2018 78/46/157 11/2017 50/53/97, 62, 0.7 10/2016 72/40/154, , 55, 0.6 on atova 80 LFTs as per epilepsy TSH as per hypo Mar, Breast cancer screening (ICD-10 - Z12.39) 01/2020 C1 B mammogram Mar, Essential hypertension (ICD-10 - I10) Stable on behavioral therapy 05/2018 4.1, 0.8 Mar, Epilepsy, unspecified, not i ntractable, without status epilepticus (ICD-10 - G40.909) No recent seizure activity on Keppra SRIDHAR 1000/1500, Depakote ER SRIDHAR 750 BID Patient needs Depakote/Keppra SRIDHAR (breakthrough sz 10/2016 when changed to generic) 10/03/19 stable CBC with differential, CMP 06/2018 31 10/2013 19.1 03/2012 levetiracetam level 41 06/2018 90 01/2015 October VPA 50 on Depakote 750 BID Mar, Vitamin D deficiency, unspecified (ICD-10 - E55. 9) 2 servings dietary calcium daily albumin 3.0-chronically highs 04/06/20 68, 8.5, 92 05/2019 105, 8.6, 86 10/2018 66, 8.4, 81 07/2017 44, 8.9, 76 on D2 q14D; therefore, increased to q7D repeat BMD 11/2023 BMD 0.3/0.1/1.6 c -2/-3/-4% change cw 05/2013; therefore, CCR Mar, Overactive bladder (ICD-10 - N32.81) Stable on solifen 10 QD Mar, Recurrent urinary tract infection (ICD-10 - N39. 0) No recurrent symptoms-favor moreso 2 IC-favor to wait for abx until UCX results returned 09/2017 E coli >100K-cipro 08/2012 Dr. Polo favored symtpoms 2 interstitial cystitis Mar, Obesity (ICD-10 - E66.9) Encouraged weight loss Mar, Hypoalbuminemia (ICD-10 - E88.09) favor 2 AED no diarrhea c/w malabsorption 10/2018 2.9 09/2015 albumin 2.9 chronic high 2s 03/2016 PT/PTT 13, 31 03/2004 albumin 3.0 07/09/19 CT AP normal liver 03/2016 -TTG Mar, Leukocytosis, unspecified type (ICD-10 - D72.829 ) No recurrent fever/infections c mild macrocytosis 10/2018 11.0 10/2016 11, 13, 92 06/2016 10.9, 13.2 03/2016 stable at 10.9 with normal differential 10/2016 SPEP s M spike (normal K/L) Mar, Cervical cancer screening (ICD-10 - Z12.4) 06/2016 NILM Mar, Asperger syndrome (ICD-10 - F84.5) c chronic MDD Stable on fluox 20 Mar, PMDD (premenstrual dysphoric disorder) (ICD-10 - F32.81) stable on regimen as per Asperger PLAN OF TREATMENT Medication Medication Name Sig Start Date Stop Date Cyanocobalamin 500 MCG 1 tablet Orally Once a day for 30 day(s) Omeprazole 20 MG 1 capsule Orally Once a day for 30 day(s) Tums Ultra 1000 1000 MG 1 tablet Orally daily for 30 day(s) Depakote ER 250 MG 3 tablets Orally Twice a day Aviane 0.1-20 MG-MCG 1 tablet Orally Once a day Ibuprofen 400 MG 1 tablet with food or milk a s needed Orally every 8 hours prn cervical pain Keppra XR 500mg 2 tabs in am and 3tabs at [facility] Orally twice daily-SRIDHAR for 30 day(s) Fluoxetine 20 MG 1 cap Orally Daily Atorvastatin Calcium 80 MG 1 tablet Orally Once a day for 90 day (s) Ergocalciferol 23859 UNIT 1 capsule Orally every 7 days for 30 d ay(s) VESIcare 10 mg 1 tablet Orally Once a day for 30 day(s) Levothyroxine Sodium 25 MCG 1 tablet Orally Once a day for 30 da y(s) Treatment Notes Assessment Notes Clinical Notes Vitamin D deficiency, unspecified 2 serv ings dietary calcium dailyalbumin 3.0- chronically highs106/07/19 68, 8.5, 921 105, 8.6, 867/2018 66, 8.4, 814/2017 44, 8.9, 76 on D2 q14D; therefore, increased to l3Dgxeghp BMD BMD 0.3/0.1/1.6 c -2/-3/-4% change cw 05/2013; therefore, CCR Hypothyroidism, unspecified father c thy roid disease09/2014 - TPO Ab04/06/20 4.6, 1.1; but missed a "few doses" in the last ~14D10/03/19 3.7, 1.1 on 2.4, 1.11/2017 2.5, 0.911 2. 3.3, 1.110 4.5 c fatigue, t herefore started LT4 25 Epilepsy, unspecified, not intractable, without status epile pticus No recent seizure activity on Keppra SRIDHAR 1000/1500, Depakote ER SRIDHAR 750 BIDPatient needs Depakote/Keppra SRIDHAR (breakthrough sz 10/2016 when changed to generic)10/03/19 stable CBC with differential, CMP06/2018 317/2014 19.112/2012 levetiracetam level 413 9010/2015 62July 2011 VPA 50 on Depakote 750 BID Microscopic hematuria No gross hematuria nor LUTs07/24/19 [id number]-[id number] Uro07/09/19 CT AP s/c hem protocol WNL Recurrent urinary tract infection No rec urrent symptoms-favor moreso 2 IC- favor to wait for abx until UCX results returned09/2017 E coli >100K-cipro08/2012 Dr. Polo favored symtpoms 2 interstitial cystitis Gastroesophageal reflux disease, esophagitis presence not sp ecified Stable on omep 20 qAM10/2018 given ~3x qW PP burping, ARNALDO x 3M s dysphagia/V/wt loss; therefore, omep 20 qAM c resolutionContingency: push dose Overactive bladder Stable on solifen 10 QD Abnormal uterine bleeding (AUB) better c ontrolled on combo OCP, rather than PG only-no absolute contraindication for combo Hypoalbuminemia favor 2 AEDno diarrh ea c/w malabsorption10/2018 2. albumin 2.9chronic high 2s03/2016 PT/PTT 13, 3111/[address] AP normal liver03/2016 -TTG IFG (impaired fasting glucose) Continue ADA diet/weight lossno DM in 1DR106/07/19 5.76/08/18 5. 5.6 (88, 24)10/2018 5.6 (87, 20); therefore, dc 12 oz soda QD06/2018 5.2 c ILIA-IR (80, 17)06/2015 5.7, therefore encouraged to d/c 2 4 oz soda QD04/06/20 143/2017 VIET/creatinin 18 Obesity Encouraged weight lo ss Periodic limb movement disorder Patient remains zvbwygrdxybr35/12/18 NPSG s evidence of NATANAEL (AHI 0.4) Cervical cancer screening 06/2016 NILM Spondylosis of cervical region without myelopathy or radicul opathy Stable on home PT and ibu 400 prn izxabo65/2018 SS + baclo 10 TID and ibu 400 TID prn flares Leukocytosis, unspecified type No recurr ent fever/infectionsc mild macrocytosis10/2018 11.10/2016 11, 13, 923/2017 10.9, 13.211/2016 stable at 10.9 with normal differential10/2016 SPEP s M spike (normal K/L) Asperger syndrome c chronic MDDStable on fluox 20 Essential hypertension Stable on behavio ral therapy05/2018 4.1, 0.8 Breast cancer screening 01/2020 C1 B [place] mogram PMDD (premenstrual dysphoric disorder) s table on regimen as per Asperger Palpitations Patient remains asym ptomatic12/2017 given chronicity, checked 30D EV-but solely QHS s presyncope, chest pain, dyspnea with non-symptomatic isolated PAC, multiform PVCs, events NOT aw any ectopychronic daily ~40 oz coffee daily ()10/2016 encouraged to slowly reduce caffeine~1x q2W of asx "skipped beats" lasting seconds11/25/16 NSR 66 bpm, LAE, PRWP similar to 06/09/09 B12 deficiency 10/03/19 12.9, 92,32/2 .311/2016 hgb 12.7, 946 6764/2017 749 on 500 QD03/2017 B12 326; therefore, started 500 QD07/2017 RBC folate 4066304/06/20 SPEP s M spike03/2017 sIFE MCB Mixed hyperlipidemia 04/06/20 / 2018 /2017 50/53/97, 62, 0. 72/40/154, , 55, 0.6 on atova 80LFTs as per epilepsyTS as per hypo Future Test Test Name Order Date Comprehensive Metabolic Profile (CMP) [id number] INSULIN LEVEL [id number] HEMOGLOBIN A1c [id number] PTH INTACT [id number] FREE T4 & TSH PANEL [id number] CBC with Differential [id number] Next Appt Details 4M first afternoon apt, BW 1W prior Reas on: Provider Name:Reynold Friedman, 2020-07-28 0 1:30:00 PM, [address] [place], [address], Provider Name:Nata Knapp, 2021-03-04 11:00:00 AM, [facility] [place], [address], Insurance Providers Payer Name Payer Address Payer Phone Insured Name Patient Relati onship to Insured Coverage Start Date Coverage End Date MEDICARE PART A ONLY [id number] [facility] [id number] ISAURA RICHARDSON MEDICAID [employer] [address] [facility] [address] [place] RICHARDSON
--- OUTSIDE RECORDS SUMMARY | 2020-05-16 12:45 | CCD ---
Author Author Jesica Germanher Nikki Organization Unknown Address [address] [place] [phone] Phone Care Team Providers Care Line Servicer Name Role Phone Nikki German PCP Allergies, Adverse Reactions, Alerts No Data [...] Name Taxonomy Code Taxonomy Desc Phone Number [phone] haloperidol 05/28/2015 once a day 1 mg tablet as needed [phone] Nikki German [id number] Psychiatric/Mental Health [phone] [id number] fluoxetine by mouth [id number] 05/17/2017 twice a day 20 mg ca psule [phone] Nikki German [id number] Psychiatric/Mental Health [phone] Social History Social History Element Description Concept Effective Date Smoking Status Unknown if ever smoked [id number] Immunizations No Data in Section Vital Signs Encounter Date Height Ins Weight Lbs Bmi Bp Systolic Bp Diastoli c Oxygen Saturation Respiration Rate Pulse Rate Body Temp Head Circumference Heigh t Lying 04/02/2020 0.00 0.00 0.00 0 0 0.00 0 0 0.00 0.0 0.0 0 Procedures Date Concept Id Description Targeted Site Concept Targeted Site Concept Type 04/02/2020 [id number] [facility] Telemed E/M Lvl 3--Est pt CPT Patient has no history of implantable de vices Encounters Encounter Start Date End Date Encounter Type Description Diagnosis Di agnosis Desc Location Author First Name Author Last Name Npid Taxonomy Cod e Taxonomy Desc Phone Number Location Addr1 Location Addr2 Location [facility] Location Sta te Location Zip [id number] 04/02/2020 04/02/2020 20208-00 [facility] Telemed E/M Lvl 3--Est p t F33.0 Major depressive disorder, recurrent, mild [facility] [id number] Psychiatric/Mental Health [id number] [address] [place] [phone] Plan of Treatment No Data in Section Lab Results No Data in Section Instructions No Data in Section Functional Cognitive Status No Data in Section Insurance Providers Insurance Id Policy Effective Date Policy Thru Date Dynamic Yield N kallie [id number] 2011 MEDICAID
--- OUTSIDE RECORDS SUMMARY | 2020-05-16 12:45 | CCD | Continuity of Care Document ---
Author Author Jenelle SALCIDO P.A.-C. Organization Unknown Address [address] [place] [phone] Phone [phone] Problems Description No Information Available Social History [...] developed and its performance characteristics determined by [employer]. It has not been cleared or approved by the Food and Drug Administration. 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 Plan of Treatment No Information Available Functional Status Description No Information Available Mental Status Description No Information Available Referrals Description No Information Available
--- OUTSIDE RECORDS SUMMARY | 2020-05-16 12:45 | CCD ---
Author Author [facility] Organization [facility] Address Unknown Phone Unavailable Care Team Providers Care Owner Professional Engineer Name Role Phone Reynold Friedman Unavailable PROBLEMS Type Condition ICD9-CM Code OMM06-HZ Code Onset Dates Condition S tatus SNOMED Code Notes Problem Epilepsy, unspecified, not intractable, without status epilepticus G40.909 Active 25272909 Problem Vitamin D deficiency, unspecified E55.9 Active 88012195 Problem Mixed hyperlipidemia E78.2 Active 879745233 Problem Hypoalbuminemia E88.09 Active 626818218 Problem Endocervical polyp N84.1 Active 9914612 Problem Obesity E66.9 Active 093027469 Problem Recurrent urinary tract infection N39.0 Active 953363188 Problem Essential hypertension I10 Active 09352643 Problem Leukocytosis, unspecified type D72.829 Active 1 53764054 Problem Cervical cancer screening Z12.4 Active 433236 001 Problem Breast cancer screening Z12.39 Active 03746219 6 Problem Uterine leiomyoma, unspecified location D25.9 Active 38155523 Problem PMDD (premenstrual dysphoric disorder) F32.81 A ctive 624805 Problem Palpitations R00.2 Active 26248826 Problem Seizure disorder G40.909 Active 425434826 Problem B12 deficiency E53.8 Active 668695181 Problem Gastroesophageal reflux disease, esophagitis pre sence not specified K21.9 Active 543824968 Problem Overactive bladder N32.81 Active 123967949 Problem Microscopic hematuria R31.29 Active 217466994 Problem Hypothyroidism, unspecified E03.9 Active 4093 0008 Problem IFG (impaired fasting glucose) R73.01 Active 3 66501784 Problem Abnormal uterine bleeding (AUB) N93.9 Active 49004518177795 Problem Asperger syndrome F84.5 Active 54236525 Problem Spondylosis of cervical region without myelopath y or radiculopathy M47.812 Active 042577691 Problem Periodic limb movement disorder G47.61 Active 841372162 ALLERGIES Allergen (clinical drug ingredient) Drug/Non Drug Allergy do cumented on EMR Reaction Allergy Type Onset Date Status sertraline Zoloft(ND Code:[address]-83) Hives Drug Allergy Active Benadryl Hives Drug Allergy Active nitrofurantoin, macrocrystals / nitrofurantoin, monohy drate Macrobid([facility] Code:[address]-49) Hives Drug Allergy Active cephalexin Keflex Rash Drug Allergy Active phenytoin Dilantin(ND Code:[address]-10) Hives Drug Allergy Active frisium rash, lump in throat Non Drug Allergy Active carbamazepine Tegretol(ND Code:[address]-47) Hives Drug Allerg y Active Sulfa (for allergy use only) Rash Drug Allergy Active topiramate Topamax(ND Code:[address]-73) Kidney Stones Drug Allergy Active Septra Hives Drug Allergy Active ENCOUNTERS from 1975 to 2020-04-07 Encounter Location Date Provider Diagnosis [address] [address] Mar, 020 Reynold Friedman Encounter for immunization Z23 IMMUNIZATIONS Vaccine Route Administration Date Status TDAP [...] Notes Total Score: 0 Interpretation: Alcohol Education Anglican: Question Answer Notes Anglican 05 Worship Sexual Hx: Question Answer Notes Had sex [...] a day for 30 day(s) Active Ergocalciferol 05238 UNIT 1 capsule Orally every 7 days for 30 day(s) Active VESIcare 10 mg 1 tablet Orally Once a day for 30 Active Keppra XR 500mg 2 tabs Orally twice daily-SRIDHAR Active Depakote ER 250 MG 3 tablets [...] tab orally daily as needed Active PROCEDURES from 1976 to 2020-04-07 Procedure Date Ordered Result Body Site Immunization: Flublok Quadrivalent (18 years & older) 0.5mL IM (Influenza) 2020-04-06 N/A RESULTS No Results REASON FOR VISIT flu [...] Treatm ent Clinical Notes Mar, Encounter for immunization (ICD-10 - Z23) PLAN OF TREATMENT Medication Medication Name Sig Start Date Stop Date VESIcare 10 mg 1 tablet Orally Once a day for 30 Atorvastatin Calcium 80 MG TAKE ONE TABLET BY MOUTH EVERY DAY fo r 30 Aviane 0.1-20 MG-MCG 1 tablet Orally Once a day for 28 day(s) Ergocalciferol 08568 UNIT 1 capsule Orally every 7 days for 30 d ay(s) Next Appt Details Provider Name:Reynold Friedman, 2020-04-13 0 1:15:00 PM, [address] [place] [address], [phone], Provider Name:Nata Knapp, 2021-03-04 11:00:00 AM, [address] [place] [address], [phone], Insurance Providers Payer Name Payer Address Payer Phone Insured Name Patient Relati onship to Insured Coverage Start Date Coverage End Date MEDICAID [employer] [address] [place] [id number] ISAURA RICHARDSON MEDICARE PART A ONLY [id number] [place] [address] ISAURA RICHARDSON self
--- OUTSIDE RECORDS SUMMARY | 2020-05-16 12:45 | CCD ---
Author [facility] Unknown Address [address] [place] [address] Phone Care Team Providers Care Hand Coper Name Role Phone Griselda Morales PCP Allergies, [...] Name Taxonomy Code Taxonomy Desc Phone Number [phone] haloperidol 05/28/2015 once a day 1 mg tablet as needed [phone] [phone] Nikki German [id number] Psychiatric/Mental Health [phone] [id number] fluoxetine by mouth [id number] 05/17/2017 twice a day 20 mg ca psule [phone] Nikki German [id number] Psychiatric/Mental Health [phone] Social History Social History Element Description Concept Effective Date Smoking Status Unknown if ever smoked [id number] 96757416 Immunizations No Data in Section Vital Signs No Data in Section Procedures Date Concept Id Description Targeted Site Concept Targeted Site Concept Type 05/04/2020 16944 Extended Individual Psychotherapy - 45 min CPT Patient has no history of implantable de vices Encounters Encounter Start Date End Date Encounter Type Description Diagnosis Di agnosis Desc Location Author First Name Author Last Name Npid Taxonomy Cod e Taxonomy Desc Phone Number Location Addr1 Location Addr2 Location City Location [place] Zip [id number] 05/04/2020 05/04/2020 62082 Extended Individual Psych otherapy - 45 min F33.0 Major depressive disorder, recurrent, mild [facility] [phone] [id number] Art Therapist [phone] [address] [address] Plan of Treatment No Data in Section Lab Results No Data in Section Instructions No Data in Section Insurance Providers Insurance Id Policy Effective Date Policy Thru Date Company Arsen arreguin [id number] 2011 MEDICAID
--- OUTSIDE RECORDS SUMMARY | 2020-05-16 12:45 | CCD ---
[facility] Address [address] [place] [address] Phone Care Team Providers Care Foreman/Project Manager Name Role Phone Griselda Morales PCP Allergies, [...] Name Taxonomy Code Taxonomy Desc Phone Number [phone] haloperidol 05/28/2015 once a day 1 mg tablet as needed [phone] [phone] Nikki German [id number] Psychiatric/Mental Health [phone] fluoxetine by mouth [id number] 05/17/2017 twice a day 20 mg ca psule 37214 [phone] Nikki German [id number] Psychiatric/Mental Health [phone] Social History Social History Element Description Concept Effective Date Smoking Status Unknown if ever smoked [id number] Immunizations No Data in Section Vital Signs No Data in Section Procedures Date Concept Id Description Targeted Site Concept Targeted Site Concept Type 04/09/2020 08528 Extended Individual Psychotherapy - 45 min CPT Patient has no history of implantable de vices Encounters Encounter Start Date End Date Encounter Type Description Diagnosis Di agnosis Desc Location Author First Name Author Last Name Npid Taxonomy Cod e Taxonomy Desc Phone Number Location Addr1 Location Addr2 Location City Location Sta Location Zip [id number] 04/09/2020 04/09/2020 81023 Extended Individual Psych otherapy - 45 min F33.0 Major depressive disorder, recurrent, mild Community [facility] [phone] [id number] Art Therapist [phone] [address] [address] Plan of Treatment No Data in Section Lab Results No Data in Section Instructions No Data in Section Insurance Providers Insurance Id Policy Effective Date Policy Thru Date Company Arsen arreguin [id number] 2011 MEDICAID
--- OUTSIDE RECORDS SUMMARY | 2020-05-16 12:46 | CCD ---
Author Author [facility] Organization [facility] Address Unknown Phone Unavailable Care Team Providers Care Boat Joiner Name Role Phone Emil Salcido PA Unavailable Unavailable Trickey, J Purvi PA Unavailable Unavailable Trickey, J Purvi PA Unavailable Unavailable Trickey, J Purvi PA Unavailable Unavailable Trickey, J Purvi PA Unavailable Unavailable Trickey, J Purvi PA Unavailable Unavailable Trickey, J Purvi PA Unavailable Unavailable Trickey, J Purvi PA Unavailable Unavailable Trickey, J Purvi PA Unavailable Unavailable Trickey, J Purvi PA Unavailable Unavailable Trickey, J Purvi PA Unavailable Unavailable Trickey, J Purvi PA Unavailable Unavailable Trickey, J Purvi PA Unavailable Unavailable Trickey, J Purvi PA Unavailable Unavailable Trickey, J Purvi PA Unavailable Unavailable Trickey, J Purvi PA Unavailable Unavailable Trickey, J Purvi PA Unavailable Unavailable Trickey, J Purvi PA Unavailable Unavailable Trickey, J Purvi PA Unavailable Unavailable Trickey, J Purvi PA Unavailable Unavailable Trickey, J Purvi PA Unavailable Unavailable Trickey, J Purvi PA Unavailable Unavailable Trickey, J Purvi PA Unavailable Unavailable Trickey, J Purvi PA Unavailable Unavailable Trickey, J Purvi PA Unavailable Unavailable Trickey, J Purvi PA Unavailable Unavailable Trickey, J Purvi PA Unavailable Unavailable Trickey, J Purvi PA Unavailable Unavailable Trickey, J Purvi PA Unavailable Unavailable Trickey, J Purvi PA Unavailable Unavailable Trickey, J Purvi PA Unavailable Unavailable Trickey, J Purvi PA Unavailable Unavailable Trickey, J Purvi PA Unavailable Unavailable Trickey, J Purvi PA Unavailable Unavailable Trickey, J Purvi PA Unavailable Unavailable Trickey, J Purvi PA Unavailable Unavailable Trickey, J Purvi PA Unavailable Unavailable Trickey, J Purvi PA Unavailable Unavailable Trickey, J Purvi PA Unavailable Unavailable Trickey, J Purvi PA Unavailable Unavailable Trickey, J Purvi PA Unavailable Unavailable Trickey, J Purvi PA Unavailable Unavailable Trickey, J Purvi PA Unavailable Unavailable Trickey, J Purvi PA Unavailable Unavailable Trickey, J Purvi PA Unavailable Unavailable Trickey, J Purvi PA Unavailable Unavailable Trickey, J Purvi PA Unavailable Unavailable Trickey, J Purvi PA Unavailable Unavailable Trickey, J Purvi PA Unavailable Unavailable Trickey, J Purvi PA Unavailable Unavailable Trickey, J Purvi PA Unavailable Unavailable Trickey, J Purvi PA Unavailable Unavailable Griselda Morales Unavailable Moises Urmila Unavailable Lucia Elder Unavailable Unavailable Micaela Vital Unavailable MACQUEEN, RENU INNOVATION ANALYST Unavailable Unavailable MACQUEEN, RENU INNOVATION ANALYST Unavailable Unavailable MACQUEEN, RENU INNOVATION ANALYST Unavailable Unavailable MACQUEEN, RENU INNOVATION ANALYST Unavailable Unavailable MACQUEEN, RENU INNOVATION ANALYST Unavailable Unavailable MACQUEEN, RENU INNOVATION ANALYST Unavailable Unavailable MACQUEEN, RENU INNOVATION ANALYST Unavailable Unavailable MACQUEEN, RENU INNOVATION ANALYST Unavailable Unavailable MACQUEEN, RENU INNOVATION ANALYST Unavailable Unavailable MACQUEEN, RENU INNOVATION ANALYST Unavailable Unavailable MACQUEEN, RENU INNOVATION ANALYST Unavailable Unavailable [facility] Unavailable [phone] [facility] OF Unavailable [phone] Re-disclosure Warning The records that you are about to access may contain information from federally-assisted alcohol or drug abuse programs. If such information is present, then the following federally mandated warning applies: This information has been disclosed to you from records protected by federal confidentiality rules (42 CFR part 2). The federal rules prohibit you from making any further disclosure of this information unless further disclosure is expressly permitted by the written consent of the person to whom it pertains or as otherwise permitted by 42 CFR part 2. A general authorization for the release of medical or other information is NOT sufficient for this purpose. The Federal rules restrict any use of the information to criminally investigate or prosecute any alcohol or drug abuse patient.The records that you are about to access may contain highly sensitive health information, the redisclosure of which is protected by Article 27-F of the [facility] Public Health law. If you continue you may have access to information: Regarding HIV / AIDS; Provided by facilities licensed or operated by the [facility] Office of Mental Health; or Provided by the [facility] Office for People With Developmental Disabilities. If such information is present, then the following [facility] mandated warning applies: This information has been disclosed to you from confidential records which are protected by state law. State law prohibits you from making any further disclosure of this information without the specific written consent of the person to whom it pertains, or as otherwise permitted by law. Any unauthorized further disclosure in violation of state law may result in a fine or intermediate sentence or both. A general authorization for the release of medical or other information is NOT sufficient authorization for further disc losure. Allergies and Adverse Reactions Type Description Substance Reaction Status Data Source(s ) Drug allergy Tegretol Carbamazepine Hives Active eCW1 ([facility]) Drug allergy Dilantin Phenytoin Hives Active eCW1 ([facility]) Drug allergy Zoloft Sertraline Hives Active eCW1 ([facility]) Drug allergy Topamax topiramate Kidney Stones Active eCW1 ([facility]) Drug allergy Macrobid NITROFURANTOIN, MACR OCRYSTALS / Nitrofurantoin, Monohydrate Hives Active eCW1 (Counts include 234 beds at the [facility]) Septra Septra Septra Hives Active eCW1 ([facility]) Keflex Keflex Cephalexin 750 MG Oral Capsule [Keflex] Rash Active eCW1 ([facility]) frisium frisium frisium rash, lump in throat Active eCW 1 ([facility]) Benadryl Benadryl Benadryl Hives Active eCW1 ([facility]) Hives Active eCW1 ([facility]) Keflex Keflex Cephalexin 750 MG Oral Capsule [Keflex] Rash Active eCW1 ([facility]) frisium frisium frisium rash, lump in throat Active eCW 1 ([facility]) Benadryl Benadryl Benadryl Hives Active eCW1 ([facility]) Hives Active eCW1 ([facility]) Keflex Keflex Cephalexin 750 MG Oral Capsule [Keflex] Rash Active eCW1 ([facility]) frisium frisium frisium rash, lump in throat Active eCW 1 ([facility]) Benadryl Benadryl Benadryl Hives Active eCW1 ([facility]) Hives Active eCW1 ([facility]) Keflex Keflex Cephalexin 750 MG Oral Capsule [Keflex] Rash Active eCW1 ([facility]) frisium frisium frisium rash, lump in throat Active eCW 1 ([facility]) Benadryl Benadryl Benadryl Hives Active eCW1 ([facility]) Hives Active eCW1 ([facility]) Keflex Keflex Cephalexin 750 MG Oral Capsule [Keflex] Rash Active eCW1 ([facility]) frisium frisium frisium rash, lump in throat Active eCW 1 ([facility]) Benadryl Benadryl Benadryl Hives Active eCW1 ([facility]) Hives Active eCW1 ([facility]) Keflex Keflex Cephalexin 750 MG Oral Capsule [Keflex] Rash Active eCW1 ([facility]) frisium frisium frisium rash, lump in throat Active eCW 1 ([facility]) Benadryl Benadryl Benadryl Hives Active eCW1 ([facility]) Encounters Encounter Providers Location Date Indications Data Source(s ) Outpatient Attender: Purvi TAYLOR Main office - [facility] 05/13/2020 09:00:00 AM EST [facility] ([facility] ) Extended Individual Psychotherapy - 45 min Attender: [facility] 05/04/2020 11:00:00 AM EST - 05/04/2020 11:00:00 AM EST [facility] ([facility]) Attender: Harshadohkhalida Morales 05/04/2020 12:00:00 AM EST [facility] ([facility]) Out[place] [address] [facility] [address] 04/13/2020 12:00:00 AM EST eCW1 ([facility]) Extended Individual Psychotherapy - 45 min Attender: [facility] 04/09/2020 05:00:00 AM EST - 04/09/2020 05:00:00 AM EST [facility] ([facility] [address]) Attender: Griselda Morales 04/09/2020 12:00:00 AM EST [facility] ([facility]) Outpatient [address] [facility] [address] 04/06/2020 12:00:00 AM EST eCW1 ([facility]) Outpatient Attender: RENU ANGELO NP [facility] 04/02/2020 09:30:00 AM EST - 04/02/2020 09:30:00 AM EST [facility] ([facility] [address]) Attender: RENU ANGELO NP 04/02/2020 12:00:00 AM EST [facility] ([facility]) Unknown [address] [facility] [address] 03/23/2020 12:00:00 AM EST eCW1 ([facility]) Unknown [address] [facility] [address] 03/16/2020 12:00:00 AM EST eCW1 ([facility]) ( GYNANN) [facility] Yearly [employer] Exam [address] [place] [address] 03/02/2020 12:00:00 AM EST eCW1 ([facility]) Extended Individual Psychotherapy - 45 min Attender: Griselda Morales [facility] 02/26/2020 03:00:00 AM EDT - 02/26/2020 03:00:00 AM EDT [facility] ([facility] [address]) Attender: Griselda Morales 02/26/2020 12:00:00 AM EDT [facility] ([facility]) Unknown [address] [facility] [address] 02/24/2020 12:00:00 AM EDT eCW1 ([facility]) [id number]"Psychotherapy Attender: Harshadloyd Morales [facility] 02/14/2020 05:00:00 AM EDT - 02/14/2020 05:00:00 AM EDT [facility] ([facility]) Attender: Griselda Morales 02/14/2020 12:00:00 AM EDT [facility] ([facility]) [id number]"Psychotherapy Attender: Harshadohkhalida Morales [facility] 01/30/2020 11:00:00 AM EDT - 01/30/2020 11:00:00 AM EDT [facility] ([facility]) Attender: Griselda Morales 01/30/2020 12:00:00 AM EDT [facility] ([facility]) Unknown [address] [facility] [address] 01/21/2020 12:00:00 AM EDT eCW1 ([facility]) Extended Individual Psychotherapy - 45 min Attender: Harshadohkhalida Morales [facility] 01/16/2020 11:15:00 AM EDT - 01/16/2020 11:15:00 AM EDT [facility] ([facility]) Attender: Griselda Morales 01/16/2020 12:00:00 AM EDT [facility] ([facility]) Outpatient Attender: Purvi TAYLOR [facility] 11/11/2019 10:00:00 AM EDT [facility] ([facility], ) [id number]"Psychotherapy Attender: Micaela Vital [facility] 10/31/2019 10:00:00 AM EDT - 10/31/2019 10:00:00 AM EDT [facility] ([facility]) Attender: Micaela Vital 10/31/2019 12:00:00 AM E DT [facility] ([facility]) [place]patient [address] [facility] [address] 10/10/2019 12:00:00 AM EDT eCW1 ([facility]) TEMPMHCTelemed 30" Psychotherapy Attender: Micaela [facility] 10/03/2019 10:00:00 AM EDT - 10/03/2019 10:00:00 AM EDT [facility] ([facility]) Attender: Micaela Vital 10/03/2019 12:00:00 AM E DT [facility] ([facility]) TEMPMHCTelemed 30" Psychotherapy Attender: Micaela [facility] 09/05/2019 09:00:00 AM EDT - 09/05/2019 09:00:00 AM EDT [facility] ([facility]) Attender: Micaela Vital 09/05/2019 12:00:00 AM E DT [facility] ([facility]) Outpatient Attender: RENU ANGELO NP [facility] Jordan jameel 08/28/2019 09:00:00 AM EDT - 08/28/2019 09:00:00 AM EDT [facility] ([facility]) Attender: RENU ANGELO NP 08/28/2019 12:00:00 AM EDT [facility] ([facility]) [facility] [address] [facility] [address] 08/27/2019 12:00:00 AM EDT eCW1 ([facility] [address] [facility] [address] 08/27/2019 12:00:00 AM EDT eCW1 ([facility] [address] [facility] [address] 08/19/2019 12:00:00 AM EDT eCW1 ([facility]) [facility] [address] [place] [address], [place] [address] 08/15/2019 12:00:00 AM EDT eCW1 ([facility]) [facility] [place] [facility] [address] [place] [address], [place] [address] 07/24/2019 12:00:00 AM EDT eCW1 ([facility]) TEMPMTelemed 30" Psychotherapy Attender: Urmila De Leon [facility] 07/19/2019 10:00:00 AM EDT - 07/19/2019 10:00:00 AM EDT [facility] ([facility]) Attender: Urmila De Leon 07/19/2019 12:00:00 AM E DT [facility] ([facility]) Outpatient 07/17/2019 05:13:00 AM EDT [facility] [place] [facility] [address] [place] [address], [place] [address] 07/12/2019 12:00:00 AM EDT eCW1 ([facility]) [facility] [address] [place] [address], [place] [address] 07/09/2019 12:00:00 AM EDT eCW1 ([facility]) Outpatient 07/08/2019 11:22:00 AM EDT [facility] [place] [facility] [address] [place] [address], [place] [address] 07/08/2019 12:00:00 AM EDT eCW1 ([facility]) [facility] [place] [facility] [address] [place] [address], [place] [address] 07/05/2019 12:00:00 AM EST eCW1 ([facility]) [address] [address] 07/03/2019 12:00:00 AM EST eCW1 ([facility]) [address] [address] 07/02/2019 12:00:00 AM EST eCW1 ([facility]) [address] [address] 06/28/2019 12:00:00 AM EST eCW1 ([facility]) Outpatient 06/27/2019 11:53:00 AM EST [facility] [address] [address] 06/21/2019 12:00:00 AM EST eCW1 ([facility]) [address] [address] 06/21/2019 12:00:00 AM EST eCW1 ([facility]) Extended Individual Psychotherapy - 45 min Attender: [facility] 06/05/2019 09:00:00 AM EST - 06/05/2019 09:00:00 AM EST [facility] ([facility]) Attender: [facility] 12:00:00 AM EST [facility] ([facility]) Outpatient Attender: RENU ANGELO NP [facility] Jordan jameel 05/30/2019 04:00:00 AM EST - 05/30/2019 04:00:00 AM EST [facility] ([facility]) [address] [address] 05/30/2019 12:00:00 AM EST eCW1 ([facility]) Attender: RENU ANGELO NP 05/30/2019 12:00:00 AM EST [facility] ([facility]) [address] [address] 05/28/2019 12:00:00 AM EST eCW1 ([facility]) Outpatient Attender: Purvi TAYLOR Main office - [facility] 05/13/2019 09:00:00 AM EST MEDENT ([facility], ) Outpatient Attender: RENU ANGELO NP [facility] 05/08/2019 03:00:00 AM EST - 05/08/2019 03:00:00 AM EST [facility] ([facility]) Attender: RENU ANGELO NP 05/08/2019 12:00:00 AM EST [facility] ([facility]) [facility] [address] [facility] [address] 04/26/2019 12:00:00 AM EST eCW1 ([facility]) Brief Individual Psychotherapy - 30 min Attender: Lucia Elder [facility] 04/11/2019 09:30:00 AM EST - 04/11/2019 09:30:00 AM EST [facility] ([facility]) Attender: Lucia Elder 04/11/2019 12:00:00 AM EST [facility] ([facility]) Outpatient Attender: RENU ANGELO NP [facility] 04/04/2019 09:00:00 AM EST - 04/04/2019 09:00:00 AM EST [facility] ([facility]) Attender: RENU ANGELO NP 04/04/2019 12:00:00 AM EST [facility] ([facility]) [facility] [address] [address] 03/24/2019 12:00:00 AM EST eCW1 ([facility]) Functional Status Immunizations Vaccine Date Status Description Data Source(s) influenza, recombinant, quadrIvalent,injectable, prese rvative free 04/06/2020 06:16:00 PM EST completed eCW1 (Counts include 234 beds at the [facility]) influenza, recombinant, quadrIvalent,injectable, prese rvative free 04/06/2020 06:16:00 PM EST completed eCW1 (Counts include 234 beds at the [facility]) Medications Medication Brand Name Start Date Product Form Dose Route Admi nistrative Instructions Pharmacy Instructions Status Indications Reaction Description Data Source(s) 20 mg 04/23/2020 12:00:00 AM EST capsule 60 TAKE ONE CAPSULE BY MOUTH TWICE A DAY TAKE ONE CAPSULE BY MOUTH TWICE A DAY SOLD: 04/26/2020 [facility] 80 mg 03/24/2020 12:00:00 AM EST tablet 30 TAKE ONE TABLET BY MOUTH DAILY TAKE ONE TABLET BY MOUTH DAILY SOLD: 04/26/2020 [facility] 10 mg 03/24/2020 12:00:00 AM EST tablet 30 TAKE ONE TABLET BY MOUTH ONCE DAILY TAKE ONE TABLET BY MOUTH ONCE DAILY SOLD: 04/26/2020 [facility] atorvastatin 80 MG Oral Tablet ATORVASTATIN CALCIUM 03/24/2020 1 2:00:00 AM EST tablet 30 TAKE ONE TABLET BY MOUTH DAILY TAKE ONE T ABLET BY MOUTH DAILY SOLD: 03/27/2020 [facility] 10 mg 03/24/2020 12:00:00 AM EST tablet 30 TAKE ONE TABLET BY MOUTH ONCE DAILY TAKE ONE TABLET BY MOUTH ONCE DAILY SOLD: 03/27/2020 [facility] 1,250 mcg (50,000 unit) 03/21/2020 12:00:00 AM EST capsule 4 TAKE ONE CAPSULE BY MOUTH EVERY 7 DAYS TAKE ONE CAPSULE BY MOUTH EVERY 7 DAYS SOLD: 03/21/2020 [facility] 20 mg 02/24/2020 12:00:00 AM EDT capsule 60 TAKE ONE CAPSULE BY MOUTH TWICE A DAY TAKE ONE CAPSULE BY MOUTH TWICE A DAY SOLD: 03/27/2020 [facility] Vienva 28 Day Kit 0.1-20 mg-mcg LEVONORGESTREL/ETHINYL ESTRA DIOL 02/24/2020 12:00:00 AM EDT tablet 28 TAKE ONE TABLET BY MOUTH ONCE A DAY TAKE ONE TABLET BY MOUTH ONCE A DAY SOLD: 02/25/2020 [facility] Vienva 28 Day Kit 0.1-20 mg-mcg LEVONORGESTREL/ETHINYL ESTRA DIOL 02/24/2020 12:00:00 AM EDT tablet 28 TAKE ONE TABLET BY MOUTH ONCE A DAY TAKE ONE TABLET BY MOUTH ONCE A DAY SOLD: 03/23/2020 [facility] 20 mg 02/24/2020 12:00:00 AM EDT capsule 60 TAKE ONE CAPSULE BY MOUTH TWICE A DAY TAKE ONE CAPSULE BY MOUTH TWICE A DAY SOLD: 02/25/2020 [facility] Vienva 28 Day Kit 0.1-20 mg-mcg LEVONORGESTREL/ETHINYL ESTRA DIOL 02/24/2020 12:00:00 AM EDT tablet 28 TAKE ONE TABLET BY MOUTH ONCE A DAY TAKE ONE TABLET BY MOUTH ONCE A DAY SOLD: 04/21/2020 [facility] 500 mg 02/20/2020 12:00:00 AM EDT tablet extended release 24 hr 120 TAKE TWO TABLETS BY MOUTH TWICE A DAY TAKE TWO TABLETS BY MOUTH TWICE A DAY SOLD: 04/26/2020 [facility] 500 mg 02/20/2020 12:00:00 AM EDT tablet extended release 24 hr 120 TAKE TWO TABLETS BY MOUTH TWICE A DAY TAKE TWO TABLETS BY MOUTH TWICE A DAY SOLD: 02/25/2020 [facility] 500 mg 02/20/2020 12:00:00 AM EDT tablet extended release 24 hr 120 TAKE TWO TABLETS BY MOUTH TWICE A DAY TAKE TWO TABLETS BY MOUTH TWICE A DAY SOLD: 03/27/2020 [facility] 20 mg 01/24/2020 12:00:00 AM EDT capsule,delayed release (DR/EC) 60 TAKE ONE CAPSULE BY MOUTH TWO TIMES A DAY TAKE ONE CAPSULE BY MOUTH TWO TIMES A DAY SOLD: 01/27/2020 [facility] 20 mg 01/24/2020 12:00:00 AM EDT capsule,delayed release (DR/EC) 60 TAKE ONE CAPSULE BY MOUTH TWO TIMES A DAY TAKE ONE CAPSULE BY MOUTH TWO TIMES A DAY SOLD: 02/25/2020 [facility] 20 mg 01/24/2020 12:00:00 AM EDT capsule,delayed release (DR/EC) 60 TAKE ONE CAPSULE BY MOUTH TWO TIMES A DAY TAKE ONE CAPSULE BY MOUTH TWO TIMES A DAY SOLD: 04/26/2020 [facility] 20 mg 01/24/2020 12:00:00 AM EDT capsule,delayed release (DR/EC) 60 TAKE ONE CAPSULE BY MOUTH TWO TIMES A DAY TAKE ONE CAPSULE BY MOUTH TWO TIMES A DAY SOLD: 03/27/2020 [facility] 25 mcg 01/21/2020 12:00:00 AM EDT tablet 30 TAKE ONE TABLET BY MOUTH EVERY DAY TAKE ONE TABLET BY MOUTH EVERY DAY SOLD: 03/27/2020 [facility] 25 mcg 01/21/2020 12:00:00 AM EDT tablet 30 TAKE ONE TABLET BY MOUTH EVERY DAY TAKE ONE TABLET BY MOUTH EVERY DAY SOLD: 01/27/2020 [facility] 25 mcg 01/21/2020 12:00:00 AM EDT tablet 30 TAKE ONE TABLET BY MOUTH EVERY DAY TAKE ONE TABLET BY MOUTH EVERY DAY SOLD: 04/26/2020 [facility] atorvastatin 80 MG Oral Tablet ATORVASTATIN CALCIUM 12/24/2019 1 2:00:00 AM EDT tablet 30 TAKE ONE TABLET BY MOUTH EVERY D AY TAKE ONE TABLET BY MOUTH EVERY DAY SOLD: 12/27/2019 [facility] atorvastatin 80 MG Oral Tablet ATORVASTATIN CALCIUM 12/24/2019 1 2:00:00 AM EDT tablet 30 TAKE ONE TABLET BY MOUTH EVERY D AY TAKE ONE TABLET BY MOUTH EVERY DAY SOLD: 01/27/2020 [facility] atorvastatin 80 MG Oral Tablet ATORVASTATIN CALCIUM 12/24/2019 1 2:00:00 AM EDT tablet 30 TAKE ONE TABLET BY MOUTH EVERY D AY TAKE ONE TABLET BY MOUTH EVERY DAY SOLD: 02/25/2020 [facility] 1,250 mcg (50,000 unit) 11/29/2019 12:00:00 AM EDT capsule 4 TAKE ONE CAPSULE BY MOUTH EVERY 7 DAYS TAKE ONE CAPSULE BY MOUTH EVERY 7 DAYS SOLD: 12/02/2019 [facility] 1,250 mcg (50,000 unit) 11/29/2019 12:00:00 AM EDT capsule 4 TAKE ONE CAPSULE BY MOUTH EVERY 7 DAYS TAKE ONE CAPSULE BY MOUTH EVERY 7 DAYS SOLD: 12/27/2019 [facility] 1,250 mcg (50,000 unit) 11/29/2019 12:00:00 AM EDT capsule 4 TAKE ONE CAPSULE BY MOUTH EVERY 7 DAYS TAKE ONE CAPSULE BY MOUTH EVERY 7 DAYS SOLD: 02/05/2020 [facility] 20 mg 11/28/2019 12:00:00 AM EDT capsule 60 TAKE ONE CAPSULE BY MOUTH TWICE A DAY TAKE ONE CAPSULE BY MOUTH TWICE A DAY SOLD: 12/02/2019 [facility] 20 mg 11/28/2019 12:00:00 AM EDT capsule 60 TAKE ONE CAPSULE BY MOUTH TWICE A DAY TAKE ONE CAPSULE BY MOUTH TWICE A DAY SOLD: 01/16/2020 [facility] 1 mg 11/28/2019 12:00:00 AM EDT tablet 30 TAKE 1 TABLET BY MOUTH ONCE A DAY NEEDED FOR EXTREME ANXIETY TAKE 1 TABLET BY MOUTH ONCE A DAY NEE DED FOR EXTREME ANXIETY SOLD: 12/02/2019 [facility] 20 mg 11/28/2019 12:00:00 AM EDT capsule 60 TAKE ONE CAPSULE BY MOUTH TWICE A DAY TAKE ONE CAPSULE BY MOUTH TWICE A DAY SOLD: 02/15/2020 [facility] 300 mg 11/26/2019 12:00:00 AM EDT capsule 30 TAKE ONE CAPSULE BY MOUTH EVERY 8 HOURS FOR 10 DAYS TAKE ONE CAPSULE BY MOUTH EVERY 8 HOURS FOR 10 DAYS SO LD: 11/26/2019 [facility] 3.5-10,000-1 mg/mL-unit/mL-% 11/25/2019 12:00:00 AM EDT solu tion 10 INSTILL 4 DROPS IN BOTH EARS FOUR TIMES A DAY FOR 5 DAYS INSTILL 4 DROPS IN BOTH EARS FOUR TIMES A DAY FOR 5 DAYS SOLD: 11/25/2019 [facility] 250 mg 11/16/2019 12:00:00 AM EDT tablet extended release 24 hr 180 TAKE THREE TABLETS BY MOUTH TWICE A DAY TAKE THREE TABLETS BY MOUTH TWICE A DAY SOLD: 11/26/2019 [facility] 250 mg 11/16/2019 12:00:00 AM EDT tablet extended release 24 hr 180 TAKE THREE TABLETS BY MOUTH TWICE A DAY TAKE THREE TABLETS BY MOUTH TWICE A DAY SOLD: 12/27/2019 [facility] 250 mg 11/16/2019 12:00:00 AM EDT tablet extended release 24 hr 180 TAKE THREE TABLETS BY MOUTH TWICE A DAY TAKE THREE TABLETS BY MOUTH TWICE A DAY SOLD: 02/25/2020 [facility] 250 mg 11/16/2019 12:00:00 AM EDT tablet extended release 24 hr 180 TAKE THREE TABLETS BY MOUTH TWICE A DAY TAKE THREE TABLETS BY MOUTH TWICE A DAY SOLD: 04/26/2020 [facility] 250 mg 11/16/2019 12:00:00 AM EDT tablet extended release 24 hr 180 TAKE THREE TABLETS BY MOUTH TWICE A DAY TAKE THREE TABLETS BY MOUTH TWICE A DAY SOLD: 03/27/2020 [facility] 250 mg 11/16/2019 12:00:00 AM EDT tablet extended release 24 hr 180 TAKE THREE TABLETS BY MOUTH TWICE A DAY TAKE THREE TABLETS BY MOUTH TWICE A DAY SOLD: 01/27/2020 [facility] 10 mg 10/25/2019 12:00:00 AM EDT tablet 30 TAKE ONE TABLET BY MOUTH EVERY DAY TAKE ONE TABLET BY MOUTH EVERY DAY SOLD: 12/27/2019 [facility] 10 mg 10/25/2019 12:00:00 AM EDT tablet 30 TAKE ONE TABLET BY MOUTH EVERY DAY TAKE ONE TABLET BY MOUTH EVERY DAY SOLD: 10/25/2019 [facility] 10 mg 10/25/2019 12:00:00 AM EDT tablet 30 TAKE ONE TABLET BY MOUTH EVERY DAY TAKE ONE TABLET BY MOUTH EVERY DAY SOLD: 11/26/2019 [facility] 10 mg 10/25/2019 12:00:00 AM EDT tablet 30 TAKE ONE TABLET BY MOUTH EVERY DAY TAKE ONE TABLET BY MOUTH EVERY DAY SOLD: 02/25/2020 [facility] 10 mg 10/25/2019 12:00:00 AM EDT tablet 30 TAKE ONE TABLET BY MOUTH EVERY DAY TAKE ONE TABLET BY MOUTH EVERY DAY SOLD: 01/27/2020 [facility] 28 Day Pack 0.1-20 mg-mcg LEVONORGESTREL/ETHINYL EST RADIOL 09/30/2019 12:00:00 AM EDT tablet 28 TAKE ONE TABLET BY MOUTH ONCE A DAY TAKE ONE TABLET BY MOUTH ONCE A DAY SOLD: 10/29/2019 [facility] 28 Day Kit 0.1-20 mg-mcg LEVONORGESTREL/ETHINYL ESTRA DIOL 09/30/2019 12:00:00 AM EDT tablet 28 TAKE ONE TABLET BY MOUTH ONCE A DAY TAKE ONE TABLET BY MOUTH ONCE A DAY SOLD: 01/27/2020 [facility] 28 Day Kit 0.1-20 mg-mcg LEVONORGESTREL/ETHINYL ESTRA DIOL 09/30/2019 12:00:00 AM EDT tablet 28 TAKE ONE TABLET BY MOUTH ONCE A DAY TAKE ONE TABLET BY MOUTH ONCE A DAY SOLD: 12/27/2019 [facility] 28 Day Pack 0.1-20 mg-mcg LEVONORGESTREL/ETHINYL EST RADIOL 09/30/2019 12:00:00 AM EDT tablet 28 TAKE ONE TABLET BY MOUTH ONCE A DAY TAKE ONE TABLET BY MOUTH ONCE A DAY SOLD: 10/03/2019 [facility] 28 Day Pack 0.1-20 mg-mcg LEVONORGESTREL/ETHINYL EST RADIOL 09/30/2019 12:00:00 AM EDT tablet 28 TAKE ONE TABLET BY MOUTH ONCE A DAY TAKE ONE TABLET BY MOUTH ONCE A DAY SOLD: 11/25/2019 [facility] FALMINA 28 Day Pack 0.1-20 mg-mcg LEVONORGESTREL/ETHINYL EST RADIOL 09/09/2019 12:00:00 AM EDT tablet 28 TAKE ONE TABLET BY MOUTH EVERY DAY TAKE ONE TABLET BY MOUTH EVERY DAY SOLD: 09/09/2019 [facility] 500 mg 08/29/2019 12:00:00 AM EDT tablet extended release 24 hr 120 TAKE TWO TABLETS BY MOUTH TWICE A DAY TAKE TWO TABLETS BY MOUTH TWICE A DAY SOLD: 09/25/2019 [facility] 500 mg 08/29/2019 12:00:00 AM EDT tablet extended release 24 hr 120 TAKE TWO TABLETS BY MOUTH TWICE A DAY TAKE TWO TABLETS BY MOUTH TWICE A DAY SOLD: 01/27/2020 [facility] 500 mg 08/29/2019 12:00:00 AM EDT tablet extended release 24 hr 120 TAKE TWO TABLETS BY MOUTH TWICE A DAY TAKE TWO TABLETS BY MOUTH TWICE A DAY SOLD: 12/27/2019 [facility] 500 mg 08/29/2019 12:00:00 AM EDT tablet extended release 24 hr 120 TAKE TWO TABLETS BY MOUTH TWICE A DAY TAKE TWO TABLETS BY MOUTH TWICE A DAY SOLD: 08/29/2019 [facility] 500 mg 08/29/2019 12:00:00 AM EDT tablet extended release 24 hr 120 TAKE TWO TABLETS BY MOUTH TWICE A DAY TAKE TWO TABLETS BY MOUTH TWICE A DAY SOLD: 10/25/2019 [facility] 500 mg 08/29/2019 12:00:00 AM EDT tablet extended release 24 hr 120 TAKE TWO TABLETS BY MOUTH TWICE A DAY TAKE TWO TABLETS BY MOUTH TWICE A DAY SOLD: 11/26/2019 [facility] 20 mg 08/28/2019 12:00:00 AM EDT capsule 60 TAKE ONE CAPSULE BY MOUTH TWICE A DAY TAKE ONE CAPSULE BY MOUTH TWICE A DAY SOLD: 10/25/2019 [facility] 20 mg 08/28/2019 12:00:00 AM EDT capsule 60 TAKE ONE CAPSULE BY MOUTH TWICE A DAY TAKE ONE CAPSULE BY MOUTH TWICE A DAY SOLD: 08/29/2019 [facility] 20 mg 08/28/2019 12:00:00 AM EDT capsule 60 TAKE ONE CAPSULE BY MOUTH TWICE A DAY TAKE ONE CAPSULE BY MOUTH TWICE A DAY SOLD: 09/25/2019 [facility] 25 mcg 08/27/2019 12:00:00 AM EDT tablet 30 TAKE ONE TABLET BY MOUTH EVERY DAY TAKE ONE TABLET BY MOUTH EVERY DAY SOLD: 08/27/2019 [facility] 25 mcg 08/27/2019 12:00:00 AM EDT tablet 30 TAKE ONE TABLET BY MOUTH EVERY DAY TAKE ONE TABLET BY MOUTH EVERY DAY SOLD: 09/25/2019 [facility] 25 mcg 08/27/2019 12:00:00 AM EDT tablet 30 TAKE ONE TABLET BY MOUTH EVERY DAY TAKE ONE TABLET BY MOUTH EVERY DAY SOLD: 11/26/2019 [facility] 25 mcg 08/27/2019 12:00:00 AM EDT tablet 30 TAKE ONE TABLET BY MOUTH EVERY DAY TAKE ONE TABLET BY MOUTH EVERY DAY SOLD: 10/25/2019 [facility] 25 mcg 08/27/2019 12:00:00 AM EDT tablet 30 TAKE ONE TABLET BY MOUTH EVERY DAY TAKE ONE TABLET BY MOUTH EVERY DAY SOLD: 12/27/2019 [facility] 20 mg 08/20/2019 12:00:00 AM EDT capsule,delayed release (DR/EC) 60 TAKE ONE CAPSULE BY MOUTH TWICE A DAY TAKE ONE CAPSULE BY MOUTH TWICE A DAY SOLD: 12/27/2019 [facility] 20 mg 08/20/2019 12:00:00 AM EDT capsule,delayed release (DR/EC) 60 TAKE ONE CAPSULE BY MOUTH TWICE A DAY TAKE ONE CAPSULE BY MOUTH TWICE A DAY SOLD: 10/25/2019 [facility] 20 mg 08/20/2019 12:00:00 AM EDT capsule,delayed release (DR/EC) 60 TAKE ONE CAPSULE BY MOUTH TWICE A DAY TAKE ONE CAPSULE BY MOUTH TWICE A DAY SOLD: 11/26/2019 [facility] 20 mg 08/20/2019 12:00:00 AM EDT capsule,delayed release (DR/EC) 60 TAKE ONE CAPSULE BY MOUTH TWICE A DAY TAKE ONE CAPSULE BY MOUTH TWICE A DAY SOLD: 09/25/2019 [facility] 20 mg 08/20/2019 12:00:00 AM EDT capsule,delayed release (DR/EC) 60 TAKE ONE CAPSULE BY MOUTH TWICE A DAY TAKE ONE CAPSULE BY MOUTH TWICE A DAY SOLD: 08/20/2019 [facility] Ciprofloxacin 500 MG Oral Tablet Ciprofloxacin HCl 500 MG Ciprofloxacin HCl 500 MG 07/05/2019 12:00:00 AM EST active 1 tablet 1 hour prior to your cystoscopy eCW1 ([facility]) Ciprofloxacin 500 MG Oral Tablet Ciprofloxacin HCl 500 MG Ciprofloxacin HCl 500 MG 07/05/2019 12:00:00 AM EST active 1 tablet 1 hour prior to your cystoscopy eCW1 ([facility]) 500 mg 07/05/2019 12:00:00 AM EST tablet 1 TAKE 1 TABLET BY MOUTH 1 HOUR PRIOR TO YOUR CYSTOSCOPY TAKE 1 TABLET BY MOUTH 1 HOUR PRIOR TO YOUR CYSTOSCOPY SOLD: 07/05/2019 [facility] 20 mg 07/04/2019 12:00:00 AM EST capsule,delayed release (DR/EC) 30 TAKE ONE CAPSULE BY MOUTH EVERY DAY TAKE ONE CAPSULE BY MOUTH EVERY DAY SOLD: 07/29/2019 [facility] 20 mg 07/04/2019 12:00:00 AM EST capsule,delayed release (DR/EC) 30 TAKE ONE CAPSULE BY MOUTH EVERY DAY TAKE ONE CAPSULE BY MOUTH EVERY DAY SOLD: 07/05/2019 [facility] 80 mg 06/26/2019 12:00:00 AM EST tablet 30 TAKE ONE TABLET BY MOUTH EVERY DAY TAKE ONE TABLET BY MOUTH EVERY DAY SOLD: 07/29/2019 [facility] 80 mg 06/26/2019 12:00:00 AM EST tablet 30 TAKE ONE TABLET BY MOUTH EVERY DAY TAKE ONE TABLET BY MOUTH EVERY DAY SOLD: 08/27/2019 [facility] 80 mg 06/26/2019 12:00:00 AM EST tablet 30 TAKE ONE TABLET BY MOUTH EVERY DAY TAKE ONE TABLET BY MOUTH EVERY DAY SOLD: 10/25/2019 [facility] 80 mg 06/26/2019 12:00:00 AM EST tablet 30 TAKE ONE TABLET BY MOUTH EVERY DAY TAKE ONE TABLET BY MOUTH EVERY DAY SOLD: 06/28/2019 [facility] 80 mg 06/26/2019 12:00:00 AM EST tablet 30 TAKE ONE TABLET BY MOUTH EVERY DAY TAKE ONE TABLET BY MOUTH EVERY DAY SOLD: 11/26/2019 [facility] 80 mg 06/26/2019 12:00:00 AM EST tablet 30 TAKE ONE TABLET BY MOUTH EVERY DAY TAKE ONE TABLET BY MOUTH EVERY DAY SOLD: 09/25/2019 [facility] 800 mg 06/22/2019 12:00:00 AM EST tablet 30 TAKE ONE TABLET BY MOUTH EVERY 6 HOURS NEEDED FOR PAIN TAKE ONE TABLET BY MOUTH EVERY 6 HOURS A S NEEDED FOR PAIN SOLD: 06/22/2019 [facility] 4 mg 06/22/2019 12:00:00 AM EST tablet,disintegrating 8 DISSOLVE ONE TABLET ON TONGUE EVERY 6 TO 8 HOURS NEEDED FOR NAUSEA/ VOMITING DISSOLVE ONE TABLET ON TONGUE EVERY 6 TO 8 HOURS NEEDED FOR NAUSEA/ VOMITING SOLD: 06/22/2019 [facility] 20 mg 05/31/2019 12:00:00 AM EST capsule 60 TAKE ONE CAPSULE BY MOUTH TWO TIMES A DAY TAKE ONE CAPSULE BY MOUTH TWO TIMES A DAY SOLD: 06/28/2019 [facility] 10 mg 05/31/2019 12:00:00 AM EST tablet 30 TAKE ONE TABLET BY MOUTH EVERY DAY TAKE ONE TABLET BY MOUTH EVERY DAY SOLD: 06/28/2019 [facility] 10 mg 05/31/2019 12:00:00 AM EST tablet 30 TAKE ONE TABLET BY MOUTH EVERY DAY TAKE ONE TABLET BY MOUTH EVERY DAY SOLD: 07/29/2019 [facility] 10 mg 05/31/2019 12:00:00 AM EST tablet 30 TAKE ONE TABLET BY MOUTH EVERY DAY TAKE ONE TABLET BY MOUTH EVERY DAY SOLD: 09/25/2019 [facility] 20 mg 05/31/2019 12:00:00 AM EST capsule 60 TAKE ONE CAPSULE BY MOUTH TWO TIMES A DAY TAKE ONE CAPSULE BY MOUTH TWO TIMES A DAY SOLD: 07/29/2019 [facility] 20 mg 05/31/2019 12:00:00 AM EST capsule 60 TAKE ONE CAPSULE BY MOUTH TWO TIMES A DAY TAKE ONE CAPSULE BY MOUTH TWO TIMES A DAY SOLD: 06/01/2019 [facility] 10 mg 05/31/2019 12:00:00 AM EST tablet 30 TAKE ONE TABLET BY MOUTH EVERY DAY TAKE ONE TABLET BY MOUTH EVERY DAY SOLD: 06/01/2019 [facility] 10 mg 05/31/2019 12:00:00 AM EST tablet 30 TAKE ONE TABLET BY MOUTH EVERY DAY TAKE ONE TABLET BY MOUTH EVERY DAY SOLD: 08/27/2019 [facility] 1,250 mcg (50,000 unit) 05/18/2019 12:00:00 AM EST capsule 4 TAKE ONE CAPSULE BY MOUTH EVERY 7 DAYS TAKE ONE CAPSULE BY MOUTH EVERY 7 DAYS SOLD: 10/29/2019 [facility] 1,250 mcg (50,000 unit) 05/18/2019 12:00:00 AM EST capsule 4 TAKE ONE CAPSULE BY MOUTH EVERY 7 DAYS TAKE ONE CAPSULE BY MOUTH EVERY 7 DAYS SOLD: 07/29/2019 [facility] 1,250 mcg (50,000 unit) 05/18/2019 12:00:00 AM EST capsule 4 TAKE ONE CAPSULE BY MOUTH EVERY 7 DAYS TAKE ONE CAPSULE BY MOUTH EVERY 7 DAYS SOLD: 07/03/2019 [facility] 20 mg 05/18/2019 12:00:00 AM EST capsule,delayed release (DR/EC) 30 TAKE ONE CAPSULE BY MOUTH EVERY DAY TAKE ONE CAPSULE BY MOUTH EVERY DAY SOLD: 05/28/2019 [facility] 1,250 mcg (50,000 unit) 05/18/2019 12:00:00 AM EST capsule 4 TAKE ONE CAPSULE BY MOUTH EVERY 7 DAYS TAKE ONE CAPSULE BY MOUTH EVERY 7 DAYS SOLD: 09/07/2019 [facility] 1,250 mcg (50,000 unit) 05/18/2019 12:00:00 AM EST capsule 4 TAKE ONE CAPSULE BY MOUTH EVERY 7 DAYS TAKE ONE CAPSULE BY MOUTH EVERY 7 DAYS SOLD: 05/28/2019 [facility] 250 mg 05/13/2019 12:00:00 AM EST tablet extended release 24 hr 180 TAKE THREE TABLETS BY MOUTH TWICE A DAY TAKE THREE TABLETS BY MOUTH TWICE A DAY SOLD: 08/27/2019 [facility] 250 mg 05/13/2019 12:00:00 AM EST tablet extended release 24 hr 180 TAKE THREE TABLETS BY MOUTH TWICE A DAY TAKE THREE TABLETS BY MOUTH TWICE A DAY SOLD: 10/25/2019 [facility] 250 mg 05/13/2019 12:00:00 AM EST tablet extended release 24 hr 180 TAKE THREE TABLETS BY MOUTH TWICE A DAY TAKE THREE TABLETS BY MOUTH TWICE A DAY SOLD: 09/25/2019 [facility] 250 mg 05/13/2019 12:00:00 AM EST tablet extended release 24 hr 180 TAKE THREE TABLETS BY MOUTH TWICE A DAY TAKE THREE TABLETS BY MOUTH TWICE A DAY SOLD: 07/29/2019 [facility] 250 mg 05/13/2019 12:00:00 AM EST tablet extended release 24 hr 180 TAKE THREE TABLETS BY MOUTH TWICE A DAY TAKE THREE TABLETS BY MOUTH TWICE A DAY SOLD: 06/28/2019 [facility] 250 mg 05/13/2019 12:00:00 AM EST tablet extended release 24 hr 180 TAKE THREE TABLETS BY MOUTH TWICE A DAY TAKE THREE TABLETS BY MOUTH TWICE A DAY SOLD: 05/28/2019 [facility] 25 mcg 04/26/2019 12:00:00 AM EST tablet 90 TAKE ONE TABLET BY MOUTH EVERY DAY TAKE ONE TABLET BY MOUTH EVERY DAY SOLD: 04/27/2019 [facility] 20 mg 04/26/2019 12:00:00 AM EST capsule 60 TAKE ONE CAPSULE BY MOUTH TWICE A DAY TAKE ONE CAPSULE BY MOUTH TWICE A DAY SOLD: 04/27/2019 [facility] 500 mg 03/24/2019 12:00:00 AM EST tablet 6 TAKE ONE TABLET BY MOUTH EVERY 12 HOURS FOR 3 DAYS TAKE ONE TABLET BY MOUTH EVERY 12 HOURS FOR 3 DAYS [facility] Ciprofloxacin 500 MG Oral Tablet Ciprofloxacin HCl 500 MG Ciprofloxacin HCl 500 MG 03/24/2019 12:00:00 AM EST active 1 tablet eCW1 ([facility]) 20 mg 03/19/2019 12:00:00 AM EST capsule,delayed release (DR/EC) 30 TAKE ONE CAPSULE BY MOUTH EVERY DAY TAKE ONE CAPSULE BY MOUTH EVERY DAY SOLD: 03/24/2019 [facility] 28 Day Pack 0.1-20 mg-mcg LEVONORGESTREL/ETHINYL EST RADIOL 03/11/2019 12:00:00 AM EST tablet 28 TAKE ONE TABLET BY MOUTH EVERY DAY TAKE ONE TABLET BY MOUTH EVERY DAY SOLD: 08/07/2019 [facility] 0.1-20 mg-mcg 03/11/2019 12:00:00 AM EST tablet 28 TAKE ONE TABLET BY MOUTH EVERY DAY TAKE ONE TABLET BY MOUTH EVERY DAY SOLD: 03/24/2019 [facility] 0.1-20 mg-mcg 03/11/2019 12:00:00 AM EST tablet 28 TAKE ONE TABLET BY MOUTH EVERY DAY TAKE ONE TABLET BY MOUTH EVERY DAY SOLD: 04/20/2019 [facility] 0.1-20 mg-mcg 03/11/2019 12:00:00 AM EST tablet 28 TAKE ONE TABLET BY MOUTH EVERY DAY TAKE ONE TABLET BY MOUTH EVERY DAY SOLD: 05/18/2019 [facility] FALMINA 28 Day Pack 0.1-20 mg-mcg LEVONORGESTREL/ETHINYL EST RADIOL 03/11/2019 12:00:00 AM EST tablet 28 TAKE ONE TABLET BY MOUTH EVERY DAY TAKE ONE TABLET BY MOUTH EVERY DAY SOLD: 07/14/2019 [facility] 0.1-20 mg-mcg 03/11/2019 12:00:00 AM EST tablet 28 TAKE ONE TABLET BY MOUTH EVERY DAY TAKE ONE TABLET BY MOUTH EVERY DAY SOLD: 06/17/2019 [facility] 500 mg 02/19/2019 12:00:00 AM EDT tablet extended release 24 hr 120 TAKE TWO TABLETS BY MOUTH TWICE A DAY TAKE TWO TABLETS BY MOUTH TWICE A DAY SOLD: 07/29/2019 [facility] 500 mg 02/19/2019 12:00:00 AM EDT tablet extended release 24 hr 120 TAKE TWO TABLETS BY MOUTH TWICE A DAY TAKE TWO TABLETS BY MOUTH TWICE A DAY SOLD: 04/27/2019 [facility] 500 mg 02/19/2019 12:00:00 AM EDT tablet extended release 24 hr 120 TAKE TWO TABLETS BY MOUTH TWICE A DAY TAKE TWO TABLETS BY MOUTH TWICE A DAY SOLD: 05/28/2019 [facility] 500 mg 02/19/2019 12:00:00 AM EDT tablet extended release 24 hr 120 TAKE TWO TABLETS BY MOUTH TWICE A DAY TAKE TWO TABLETS BY MOUTH TWICE A DAY SOLD: 06/28/2019 [facility] 500 mg 02/19/2019 12:00:00 AM EDT tablet extended release 24 hr 120 TAKE TWO TABLETS BY MOUTH TWICE A DAY TAKE TWO TABLETS BY MOUTH TWICE A DAY SOLD: 03/24/2019 [facility] 20 mg 01/21/2019 12:00:00 AM EDT capsule 60 TAKE ONE CAPSULE BY MOUTH TWICE A DAY TAKE ONE CAPSULE BY MOUTH TWICE A DAY SOLD: 03/24/2019 [facility] 10 mg 12/26/2018 12:00:00 AM EDT tablet 30 TAKE ONE TABLET BY MOUTH EVERY DAY TAKE ONE TABLET BY MOUTH EVERY DAY SOLD: 03/24/2019 [facility] 10 mg 12/26/2018 12:00:00 AM EDT tablet 30 TAKE ONE TABLET BY MOUTH EVERY DAY TAKE ONE TABLET BY MOUTH EVERY DAY SOLD: 04/27/2019 [facility] 80 mg 12/26/2018 12:00:00 AM EDT tablet 30 TAKE ONE TABLET BY MOUTH EVERY DAY TAKE ONE TABLET BY MOUTH EVERY DAY SOLD: 03/24/2019 [facility] 80 mg 12/26/2018 12:00:00 AM EDT tablet 30 TAKE ONE TABLET BY MOUTH EVERY DAY TAKE ONE TABLET BY MOUTH EVERY DAY SOLD: 05/28/2019 [facility] 20 mg 12/26/2018 12:00:00 AM EDT capsule,delayed release (DR/EC) 30 TAKE ONE CAPSULE BY MOUTH EVERY DAY TAKE ONE CAPSULE BY MOUTH EVERY DAY SOLD: 04/27/2019 [facility] 80 mg 12/26/2018 12:00:00 AM EDT tablet 30 TAKE ONE TABLET BY MOUTH EVERY DAY TAKE ONE TABLET BY MOUTH EVERY DAY SOLD: 04/27/2019 [facility] 25 mcg 11/21/2018 12:00:00 AM EDT tablet 30 TAKE ONE TABLET BY MOUTH ONCE DAILY TAKE ONE TABLET BY MOUTH ONCE DAILY SOLD: 03/24/2019 [facility] 50,000 unit 11/20/2018 12:00:00 AM EDT capsule 4 TAKE ONE CAPSULE BY MOUTH EVERY 7 DAYS TAKE ONE CAPSULE BY MOUTH EVERY 7 DAYS SOLD: 03/24/2019 [facility] 250 mg 11/12/2018 12:00:00 AM EDT tablet extended release 24 hr 180 TAKE 3 TABLETS BY MOUTH TWO TIMES A DAY MAXIMUM DAILY DOSE = 6 TAKE 3 TABLETS BY MOUTH TWO TIMES A DAY MAXIMUM DAILY DOSE = 6 SOLD: 03/24/2019 [facility] 250 mg 11/12/2018 12:00:00 AM EDT tablet extended release 24 hr 180 TAKE 3 TABLETS BY MOUTH TWO TIMES A DAY MAXIMUM DAILY DOSE = 6 TAKE 3 TABLETS BY MOUTH TWO TIMES A DAY MAXIMUM DAILY DOSE = 6 SOLD: 04/27/2019 [facility] Insurance Providers Payer name Policy type / Coverage type Policy ID Covered constitution party ID Covered constitution party's relationship to jamison Policy Jamison Plan Information MEDICARE [id number] SP [id number] EMEDNY [id number] SP [id number] SELF PAY ONLY [id number] SP [id number] MEDICAID [id number] S [id number] MEDICAID [id number] SP [id number] [facility]-Med[facility] [id number] Medicaid Medicaid [id number] Self [id number] [facility]-Medicaid [id number] ANSI-Medicaid [id number] ANSI-Medicaid [id number] ANSI-Medicaid [id number] ANSI-Medicaid [id number] ANSI-Medicaid [id number] ANSI-Medicaid [id number] ANSI-Medicaid [id number] ANSI-Medicaid [id number] ANSI-Medicaid [id number] ANSI-Medicaid [id number] ANSI-Medicaid [id number] ANSI-Medicaid [id number] ANSI-Medicaid [id number] ANS-Medicaid [id number] ANSI-Medicaid [id number] [place] [id number] Self [id number] MEDICAID [id number] SP [id number] Medicaid [place] [id number] Self [id number] MEDICAID [id number] SP [id number] Medicaid Medicaid 99 Self 99 MEDICAID M [id number] S [id number] MEDICAID [id number] SP [id number] Problems, Conditions, and Diagnoses Code Display Name Description Problem Type Effective Dates Data Source(s) F84.0 Autistic disorder Autism Spectrum Disorder Condition 05/04/2020 12:00:00 AM EST [facility] ([facility]) F33.0 Major depressive disorder, recurrent, mi ld Major Depressive Disorder, Recurrent episode, Mild Condition 05/04/2020 12:00:00 AM EST [facility] ([facility]) R31.29 Microscopic hematuria Microscopic hematuria Problem 07/05/2019 12:00:00 AM EST eCW1 ([facility]) R31.29 Microscopic hematuria Microscopic hematuria Problem 07/05/2019 12:00:00 AM EST eCW1 ([facility]) Surgeries/Procedures Procedure Description Date Indications Data Source(s) Extended Individual Psychotherapy - 45 min 05/04/2020 12:00:00 AM EST - 05/04/2020 12:00:00 AM EST [facility] ([facility]) Extended Individual Psychotherapy - 45 min 12:00:00 AM EST [facility] ([facility]) Extended Individual Psychotherapy - 45 min 04/09/2020 12:00:00 AM EST - 04/09/2020 12:00:00 AM EST [facility] ([facility]) Extended Individual Psychotherapy - 45 min 0 12:00:00 AM EST [facility] ([facility]) Immunization: Flublok Quadrivalent (18 years & older) 0.5mL IM (Influenza) 04/06/2020 12:00:00 AM EST eCW1 ([facility]) MHC Telemed E/M Lvl 3--Est pt 04/02/2020 12:00:00 AM EST - 04/02/2020 12:00:00 AM EST [facility] ([facility]) MHC Telemed E/M Lvl 3--Est pt 04/02/2020 12:00:[address] [facility] ([facility]) Extended Individual Psychotherapy - 45 min 02/26/2020 12:00:00 AM EDT - 02/26/2020 12:00:00 AM EDT [facility] ([facility]) Extended Individual Psychotherapy - 45 min 0 12:00:00 AM EDT [facility] ([facility]) [id number]"Psychotherapy 0 12:00:00 AM EDT - 02/14/2020 12:00:00 AM EDT [facility] ([facility]) [id number]"Psychotherapy 02/14/2020 12:00:00 AM EDT [facility] ([facility]) [id number]"Psychotherapy 0 12:00:00 AM EDT - 01/30/2020 12:00:00 AM EDT [facility] ([facility]) [id number]"Psychotherapy 01/30/2020 12:00:00 AM EDT [facility] ([facility]) Extended Individual Psychotherapy - 45 min 01/16/2020 12:00:00 AM EDT - 01/16/2020 12:00:00 AM EDT [facility] ([facility]) Extended Individual Psychotherapy - 45 min 0 12:00:00 AM EDT [facility] ([facility]) [id number]"Psychotherapy 0 12:00:00 AM EDT - 10/31/2019 12:00:00 AM EDT [facility] ([facility]) [id number]"Psychotherapy 10/31/2019 12:00:00 AM EDT [facility] ([facility]) TEMPMHCTelemed 30" Psychotherapy 12:00:00 AM EDT - 10/03/2019 12:00:00 AM EDT [facility] ([facility]) TEMPMHCTelemed 30" Psychotherapy 10/03/2019 12:00:00 A M EDT [facility] ([facility]) TEMPMHCTelemed 30" Psychotherapy 12:00:00 AM EDT - 09/05/2019 12:00:00 AM EDT [facility] ([facility]) TEMPMHCTelemed 30" Psychotherapy 09/05/2019 12:00:00 A M EDT [facility] ([facility]) MHC Telemed E/M Lvl 3--Est pt 08/28/2019 12:00:00 AM EDT - 08/28/2019 12:00:00 AM EDT [facility] ([facility]) MHC Telemed E/M Lvl 3--Est pt 08/28/2019 12:00:00 AM E DT [facility] ([facility]) CYSTOSCOPY 07/24/2019 12:00:00 AM EDT e CW1 ([facility]) TEMPMHCTelemed 30" Psychotherapy 12:00:00 AM EDT - 07/19/2019 12:00:00 AM EDT [facility] ([facility]) TEMPMHCTelemed 30" Psychotherapy 07/19/2019 12:00:00 A M EDT [facility] ([facility]) Extended Individual Psychotherapy - 45 min 06/05/2019 12:00:00 AM EST - 06/05/2019 12:00:00 AM EST [facility] ([facility]) Extended Individual Psychotherapy - 45 min 0 12:00:00 AM EST [facility] ([facility]) OFFICE OUTPATIENT VISIT 15 MINUTES 05/30 12:00:00 AM EST - 05/30/2019 12:00:00 AM EST [facility] ([facility]) OFFICE OUTPATIENT VISIT 15 MINUTES 05/30/2019 12:00:00 AM EST [facility] ([facility]) OFFICE OUTPATIENT VISIT 15 MINUTES 05/08 12:00:00 AM EST - 05/08/2019 12:00:00 AM EST [facility] ([facility]) OFFICE OUTPATIENT VISIT 15 MINUTES 05/08/2019 12:00:00 AM EST [facility] ([facility]) Brief Individual Psychotherapy - 30 min 04/11/2019 12:00:00 AM EST - 04/11/2019 12:00:00 AM EST [facility] ([facility]) Brief Individual Psychotherapy - 30 min 04/11/2019 12: 00:00 AM EST [facility] ([facility]) OFFICE OUTPATIENT VISIT 15 MINUTES 04/04 12:00:00 AM EST - 04/04/2019 12:00:00 AM EST [facility] ([facility]) OFFICE OUTPATIENT VISIT 15 MINUTES 04/04/2019 12:00:00 AM EST [facility] ([facility]) URINE-NO MICRO 03/24/2019 12:00:00 AM EST [email or web address] [facility] [place] URINE TEST 03/24/2019 12:00:00 AM EST eCW1 ([facility]) Results ID Date Data Source [id number] 04/22/2020 12:00:00 AM EST [facility] Name Value Range Interpretation Code Description Data Hoa rce(s) Supporting Document(s) SARS-CoV-2 (COVID-19) RNA [Presence] in Respiratory specimen by [facility] with probe detection [facility] This lab was ordered by [facility] and reported by [employer] ID Date Data Source PAP REQUEST FOR SERVICE 03/02/2020 12:00:00 AM EST eCW1 ([facility] Name Value Range Interpretation Code Description Data Hoa rce(s) Supporting Document(s) PAP REQUEST FOR SERVICE eCW1 ( [facility]) ID Date Data Source [id number] 11/14/2019 12:13:00 PM EDT MEDENT ([facility] ) Name Value Range Interpretation Code Description Data Hoa rce(s) Supporting Document(s) Valproate [Mass/volume] in Serum or Plasma 74.4 UG/ML 50.0-100.0 MEDENT ([facility], ) Levetiracetam [Mass/volume] in Serum or Plasma 31.4 ug/mL 10.0-40.0 MEDENT ([facility], ) This test was developed and its performa nce characteristics determined by [facility]. It has not been cleared or approved by the Food and Drug Administration. Performed at: [facility] [address] [id number] Data Support Analyst: Janel Julien MD, Phone: [phone] ID Date Data Source [id number] 08/15/2019 12:00:00 AM EDT eCW1 ([facility]) Name Value Range Interpretation Code Description Data Hoa rce(s) Supporting Document(s) [id number] LIPASE eCW1 (Counts include 234 beds at the [facility]) ID Date Data Source Comprehensive Metabolic Profile (CMP) 08/15/2019 12:00:00 AM EDT eCW1 ([facility]) Name Value Range Interpretation Code Description Data Hoa rce(s) Supporting Document(s) 17 7-18 BLOOD UREA NITROGEN eCW1 ([facility]) 143 70-100 GLUCOSE, FASTING eCW1 ([facility]) 139 136-145 SODIUM LEVEL eCW1 ([facility]) 0.80 0.55-1.30 CREATININE FOR GFR eCW1 ([facility]) > 60.0 >58 GLOMERULAR FILTRATION RATE eCW 1 ([facility]) 4.1 3.5-5.1 POTASSIUM SERUM eCW1 ([facility]) 24 21-32 CARBON DIOXIDE LEVEL eCW1 ([facility] hospital) 107 98-107 CHLORIDE LEVEL eCW1 ([facility]) 8.5 8.5-10.1 CALCIUM LEVEL eCW1 ([facility]) 14 7-37 AST/SGOT eCW1 (Counts include 234 beds at the [facility]) 71 45-117 ALKALINE PHOSPHATASE eCW1 (Critical access hospital) 0.3 0.2-1.0 BILIRUBIN,TOTAL eCW1 ([facility]) 14 12-78 ALT/SGPT eCW1 (Counts include 234 beds at the [facility]) 7.0 6.4-8.2 TOTAL PROTEIN eCW1 ([facility]) 0.63 1.00-1.93 ALBUMIN/GLOBULIN RATIO eCW1 ([facility]) 2.7 3.2-5.2 ALBUMIN eCW1 (Counts include 234 beds at the [facility]) ID Date Data Source [id number] TUMOR MARKER,CARBOHYDRA 08/15/2019 12:00:00 AM EDT eC W1 ([facility]) Name Value Range Interpretation Code Description Data Hoa rce(s) Supporting Document(s) 15.1 <35.0 [id number] TUMOR MARKER,CARBO HYDRA eCW1 ([facility]) ID Date Data Source [id number] 08/15/2019 12:00:00 AM EDT eCW1 ([facility]) Name Value Range Interpretation Code Description Data Hoa rce(s) Supporting Document(s) 18 25-115 AMYLASE eCW1 (Counts include 234 beds at the [facility]) ID Date Data Source CBC with Differential 08/15/2019 12:00:00 AM EDT eCW1 ([facility]) Name Value Range Interpretation Code Description Data Hoa rce(s) Supporting Document(s) 4.53 4.00-5.40 RED BLOOD COUNT eCW1 ([facility]) 10.0 4.0-10.0 WHITE BLOOD COUNT eCW1 ([facility]) 29.8 27.0-33.0 MEAN CORPUSCULAR HEMOGLOB IN eCW1 ([facility]) 92.1 80.0-96.0 MEAN CORPUSCULAR VOLUME e CW1 ([facility]) 41.7 36.0-47.0 HEMATOCRIT [facility]CW1 [facility]) 13.5 12.0-15.5 HEMOGLOBIN eCW1 ([facility]) 32.4 32.0-36.5 MEAN CORPUSCULAR HGB CONC eCW1 ([facility]) 316 150-450 PLATELET COUNT, AUTOMATED eCW1 ([facility]) 13.2 11.5-14.5 RED CELL DISTRIBUTION WID TH eCW1 ([facility]) 62.7 36.0-66.0 NEUTROPHILS % eCW1 ([facility]) 0.3 0.0-1.0 BASO % eCW1 (Counts include 234 beds at the [facility]) 9.2 0.0-5.0 MONO % eCW1 (Counts include 234 beds at the [facility]) 25.8 24.0-44.0 LYMPH % eCW1 (Counts include 234 beds at the [facility]) 1.5 0.0-3.0 EOS % eCW1 (Counts include 234 beds at the [facility]) 6.3 1.5-8.5 NEUTROPHILS # eCW1 ([facility]) 2.6 1.5-5.0 LYMPH # eCW1 (Counts include 234 beds at the [facility]) 0.2 0.0-0.5 EOS # eCW1 (Counts include 234 beds at the [facility]) 0.9 0.0-0.8 MONO # eCW1 (Counts include 234 beds at the [facility]) 0.0 0.0-0.2 BASO # eCW1 (Counts include 234 beds at the [facility]) ID Date Data Source C REACTIVE PROTEIN QUANTITATIV (At [facility]) 06/28/2019 12:00 :00 AM EST eCW1 ([facility]) Name Value Range Interpretation Code Description Data Hoa rce(s) Supporting Document(s) 0.59 0.00-0.30 C REACTIVE PROTEIN QUANTI TATIV eCW1 ([facility]) ID Date Data Source [id number] 05/23/2019 10:19:00 AM EST MEDENT ([facility]) Name Value Range Interpretation Code Description Data Hoa rce(s) Supporting Document(s) Insulin [Units/volume] in Serum or Plasma 24.1 uIU/mL 2.6-24.9 MEDENT ([facility]) Performed at: RN - [facility] [place] [id number] Data Support Analyst: Candis Almendarez MD, Phone: [phone] ID Date Data Source [id number] 05/23/2019 10:19:00 AM EST MEDENT ([facility]) Name Value Range Interpretation Code Description Data Hoa rce(s) Supporting Document(s) Malb Urine Siemens 20.0 mg/L MEDENT ([facility], ) Creatinine, Urine 239.0 mg/dL MEDENT ([facility], ) Thomas/Creat Ratio 8.3 MCG/MG 0.0-30.0 MEDENT ([facility]) THE [employer] STATES THAT MICROALBUMINURIA IS PRESENT IF THE MICROALBUMIN/CREATININE RATIO EXCEEDS 30 MCG/MG. THE THRESHOLD FOR CLINICAL ALBUMINURIA IS REACHED AT 300 MCG/MG. THE CLASSIFICATION OF A PATIENT SHOULD BE BASED UPON AT LEAST 2 OF 3 ABNORMAL RESULTS ON SPECIMENS COLLECTED WITHIN A 3 TO 6 MONTH TIME FRAME. ID Date Data Source [id number] 05/23/2019 10:19:00 AM EST MEDENT ([facility]) Name Value Range Interpretation Code Description Data Hoa rce(s) Supporting Document(s) PH,Urine 6.0 units 5.0-9.0 MEDENT ([facility]) Appearance, Urine Laboratory test result MEDENT ([facility]) Color, Urine Laboratory test result MEDE NT ([facility]) Specific [place] Urine Auto 1.023 1.002-1.035 MEDENT ([facility]) Ketone, Urine Auto Laboratory test result MEDENT ([facility]) Protein, Urine Auto Laboratory test result MEDENT ([facility]) Glucose, Urine (Ua) Auto Laboratory test result MEDENT ([facility]) Nitrite, Urine Auto Laboratory test result MEDENT ([facility]) Bilirubin, Urine Auto Laboratory test result MEDENT ([facility]) Urobilinogen, Urine Auto 2.0 mg/dL 0.0-2.0 MEDENT ([facility]) Leukocyte Esterase, Urine Auto Laboratory test result MEDENT ([facility]) WBC, Urine Auto 2 /HPF 0-3 MEDENT ([facility]) Blood, Urine Blood Laboratory test result MEDENT ([facility]) RBC, Urine Auto 36 /HPF 0-3 MEDENT ([facility]) Mucus, Urine Laboratory test result MEDE NT ([facility]) Bacteria, Urine Auto Laboratory test result MEDENT ([facility]) Squamous Epithelial Cell Ur AU 6 /HPF 0-6 MEDENT ([facility]) Hyaline Cast, Urine Auto 0 /LPF 0-1 MEDEN T ([facility]) ID Date Data Source [id number] 05/23/2019 10:19:00 AM EST MEDENT ([facility]) Name Value Range Interpretation Code Description Data Hoa rce(s) Supporting Document(s) Hemoglobin A1c 5.6 % MEDENT ([facility]) REFERENCE RANGES: 4.5-5.6% NORMAL 5.7-6.4% SUGGESTS IMPAIRED GLUCOSE META BOLISM >= 6.5% ABNORMAL Estimated Average Glucose 114 mg/dL 60-110 MEDENT ([facility]) ID Date Data Source [id number] 05/23/2019 10:19:00 AM EST MEDENT ([facility]) Name Value Range Interpretation Code Description Data Hoa rce(s) Supporting Document(s) Parathyrin.intact [Mass/volume] in Serum or Plasma 85.8 pg/mL 18.5-88 .0 MEDENT ([facility]) Calcidiol [Mass/volume] in Serum or Plasma 104.5 ng/mL 30.0-100.0 MEDENT ([facility]) ID Date Data Source [id number] 05/23/2019 10:19:00 AM EST MEDENT ([facility]) Name Value Range Interpretation Code Description Data Hoa rce(s) Supporting Document(s) Creatinine For GFR 0.76 mg/dL 0.55-1.30 MEDENT ([facility]) Glucose, Fasting 88 mg/dL 70-100 MEDENT ([facility]) Blood Urea Nitrogen 16 mg/dL 7-18 MEDENT ([facility]) Potassium Serum 4.5 meq/L 3.5-5.1 MEDENT ([facility]) Glomerular Filtration Rate Laboratory test result MEDENT ([facility]) <content>Units are mL/min/1.73 m2</content>
<content></content>
<content>Chronic Kidney Disease Staging per NKF:</content>
<content></content>
<content>Stage I & II GFR >=60 Normal to Mildly Decreased</content>
<content>Stage III GFR 30- 59 Moderately Decreased</content>
<content>Stage IV GFR 15-29 Severely Decreased</content>
<content>Stage V GFR <15 Very Little GFR Left</content>
<content>ESRD GFR <15 on [employer]</content>
<content></content> Sodium Level 141 meq/L 136-145 MEDENT ([facility]) Calcium Level 8.6 mg/dL 8.5-10.1 MEDENT ([facility]) Anion Gap 7 meq/L 8-16 MEDENT ([facility]) Carbon Dioxide Level 27 meq/L 21-32 MEDENT ([facility]) Chloride Level 107 meq/L 98-107 MEDENT ([facility]) Alkaline Phosphatase 63 U/L 45-117 MEDENT ([facility]) Ast/Sgot 9 U/L 7-37 MEDENT ([facility]) Alt/SGPT 14 U/L 12-78 MEDENT ([facility]) Albumin 2.9 GM/DL 3.2-5.2 MEDENT ([facility]) Bilirubin,Total 0.4 mg/dL 0.2-1.0 MEDENT ([facility]) Total Protein 6.7 GM/DL 6.4-8.2 MEDENT ([facility]) Albumin/Globulin Ratio 0.76 1.00-1.93 MEDENT ([facility]) ID Date Data Source [id number] 05/23/2019 10:19:00 AM EST MEDENT ([facility]) Name Value Range Interpretation Code Description Data Hoa rce(s) Supporting Document(s) Levetiracetam [Mass/volume] in Serum or Plasma 22.0 ug/mL 10.0-40.0 MEDENT ([facility] ) This test was developed and its performa nce characteristics determined by [facility]. It has not been cleared or approved by the Food and Drug Administration. Performed at: [address] [id number] Data Support Analyst: Janel Julien MD, Phone: [phone] ID Date Data Source [id number] 05/23/2019 10:19:00 AM EST MEDENT ([facility] ) Name Value Range Interpretation Code Description Data Hoa rce(s) Supporting Document(s) White Blood Count 10.1 10 4.0-10.0 MEDENT ([facility], ) Red Blood Count 4.49 10 4.00-5.40 MEDENT ([facility], ) Hematocrit 42.1 % 36.0-47.0 MEDENT ([facility], ) Mean Corpuscular Volume 93.8 fl 80.0-96.0 M EDENT ([facility], ) Hemoglobin 13.1 g/dL 12.0-15.5 MEDENT ([facility], ) Mean Corpuscular Hemoglobin 29.2 pg 27.0-33.0 [facility]ENT [facility] Mean Corpuscular HGB Conc 31.1 g/dL 32.0-36.5 MEDENT ([facility]) Red Cell Distribution Width 13.4 % 11.5-14.5 MEDENT ([facility]) Platelet Count, Automated 276 10 150-450 MEDENT ([facility], ) Lymph % 32.6 % 24.0-44.0 MEDENT ([facility], ) Neutrophils % 56.1 % 36.0-66.0 MEDENT ([facility], ) [place] % 9.1 % 0.0-5.0 MEDENT ([facility], ) Eos % 1.6 % 0.0-3.0 MEDENT ([facility], ) Baso % 0.2 % 0.0-1.0 MEDENT ([facility], ) Immature Granulocyte % 0.4 % 0-3.0 MEDENT ([facility], ) Neutrophils # 5.7 10 1.5-8.5 MEDENT ([facility], ) Nucleated Red Blood Cell % 0.0 % 0-0 MED ENT ([facility], ) Lymph # 3.3 10 1.5-5.0 MEDENT ([facility], ) Eos # 0.2 10 0.0-0.5 MEDENT ([facility], ) [place] # 0.9 10 0.0-0.8 MEDENT ([facility], ) Baso # 0.0 10 0.0-0.2 MEDENT ([facility], ) ID Date Data Source [id number] 05/23/2019 10:19:00 AM EST MEDENT ([facility] ) Name Value Range Interpretation Code Description Data Hoa rce(s) Supporting Document(s) Aspartate aminotransferase [Enzymatic activity/volume] in Se rum or Plasma 9 U/L 7-37 MEDENT ([facility], ) Valproate [Mass/volume] in Serum or Plasma 63.8 UG/ML 50.0-100.0 MEDENT ([facility] ) Alanine aminotransferase [Enzymatic activity/volume] in Seru m or Plasma 14 U/L 12-78 MEDENT ([facility], ) Procedure Social History Code Duration Value Status Description Data Source(s ) Smoking 05/04/2020 12:00:00 AM EST Unknown if ever smoked comp leted Unknown if ever smoked [facility] ([facility]) Smoking 04/13/2020 12:00:00 AM EST Never Smoker completed Never S moker eCW1 ([facility]) Smoking 04/09/2020 12:00:00 AM EST Unknown if ever smoked comp leted Unknown if ever smoked [facility] ([facility]) Smoking 04/02/2020 12:00:00 AM EST Unknown if ever smoked comp leted Unknown if ever smoked [facility] ([facility]) Smoking 03/02/2020 12:00:00 AM EST Never Smoker completed Never S moker eCW1 ([facility]) Smoking 03/02/2020 12:00:00 AM EST Never Smoker completed Never S moker eCW1 ([facility]) Smoking 03/02/2020 12:00:00 AM EST Never Smoker completed Never S moker eCW1 ([facility]) Smoking 03/02/2020 12:00:00 AM EST Never Smoker completed Never S moker eCW1 ([facility]) Smoking 02/26/2020 12:00:00 AM EDT Unknown if ever smoked comp leted Unknown if ever smoked [facility] ([facility]) Smoking 02/14/2020 12:00:00 AM EDT Unknown if ever smoked comp leted Unknown if ever smoked [facility] ([facility]) Smoking 01/30/2020 12:00:00 AM EDT Unknown if ever smoked comp leted Unknown if ever smoked [facility] ([facility]) Smoking 01/16/2020 12:00:00 AM EDT Unknown if ever smoked comp leted Unknown if ever smoked [facility] ([facility]) Smoking 10/31/2019 12:00:00 AM EDT Unknown if ever smoked comp leted Unknown if ever smoked [facility] ([facility]) Smoking 10/10/2019 12:00:00 AM EDT Never Smoker completed Never S moker eCW1 ([facility]) Smoking 10/10/2019 12:00:00 AM EDT Never Smoker completed Never S moker eCW1 ([facility]) Smoking 10/10/2019 12:00:00 AM EDT Never Smoker completed Never S moker eCW1 ([facility]) Smoking 10/03/2019 12:00:00 AM EDT Unknown if ever smoked comp leted Unknown if ever smoked [facility] ([facility]) Smoking 09/05/2019 12:00:00 AM EDT Unknown if ever smoked comp leted Unknown if ever smoked [facility] ([facility]) Smoking 08/28/2019 12:00:00 AM EDT Unknown if ever smoked comp leted Unknown if ever smoked [facility] ([facility]) Smoking 07/19/2019 12:00:00 AM EDT Unknown if ever smoked comp leted Unknown if ever smoked [facility] ([facility]) Smoking 06/05/2019 12:00:00 AM EST Unknown if ever smoked comp leted Unknown if ever smoked [facility] ([facility]) Smoking 05/30/2019 12:00:00 AM EST Unknown if ever smoked comp leted Unknown if ever smoked [facility] ([facility]) Smoking 05/08/2019 12:00:00 AM EST Unknown if ever smoked comp leted Unknown if ever smoked [facility] ([facility]) Smoking 04/11/2019 12:00:00 AM EST Unknown if ever smoked comp leted Unknown if ever smoked [facility] ([facility]) Smoking 04/04/2019 12:00:00 AM EST Unknown if ever smoked comp leted Unknown if ever smoked [facility] ([facility]) Vital Signs ID Date Data Source UNK Name Value Range Interpretation Code Description Data Source(s) Body weight 241.6 [lb_av] 241.6 [lb_av] eCW1 ([facility]) Diastolic blood pressure 82 mm[Hg] 82 mm[Hg] eCW1 ([facility]) Systolic blood pressure 130 mm[Hg] 130 mm[Hg] e CW1 ([facility]) Body temperature 98.3 [degF] 98.3 [degF] eCW1 ( [facility]) Respiratory rate 20 /min 20 /min eCW1 ([facility]) Heart rate 90 /min 90 /min W1 ([facility]) Body mass index (BMI) [Ratio] 42.12 kg/m2 42.12 kg/m2 W1 ([facility]) Body height 63.5 [in_i] 63.5 [in_i] eCW1 ([facility]) Diastolic blood pressure 0 mm[Hg] Normal (applies to non-numeric results) 0 mm[Hg] [facility]umed[facility] ([facility]) Systolic blood pressure 0 mm[Hg] Normal (applies t o non-numeric results) 0 mm[Hg] [facility] ([facility]) Body mass index (BMI) [Ratio] 0.00 kg/m2 No rmal (applies to non-numeric results) 0.00 kg/m2 [facility] ([facility]) Body weight Measured 0.00 lbs Normal (applies to n on-numeric results) 0.00 lbs [facility] ([facility]) Body height 0.00 in Normal (applies to non-numeric resu lts) 0.00 in [facility] ([facility]) Diastolic blood pressure 82 mm[Hg] 82 mm[Hg] eCW1 ([facility]) Systolic blood pressure 124 mm[Hg] 124 mm[Hg] e CW1 ([facility]) Body mass index (BMI) [Ratio] 41.67 kg/m2 41.67 kg/m2 eCW1 ([facility]) Body height 63.5 [in_i] 63.5 [in_i] eCW1 ([facility]) Body weight 239 [lb_av] 239 [lb_av] eCW1 ([facility]) Respiratory rate 20 /min 20 /min MEDENT ( [facility] ) Heart rate 76 /min 76 /min MEDENT ([facility] ) Diastolic blood pressure 70 mm[Hg] 70 mm[Hg] MEDENT ([facility] ) Systolic blood pressure 110 mm[Hg] 110 mm[Hg] M EDENT ([facility] ) Respiratory rate 20 /min 20 /min eCW1 ([facility]) Heart rate 83 /min 83 /min eCW1 ([facility]) Body mass index (BMI) [Ratio] 41.53 kg/m2 41.53 kg/m2 eCW1 ([facility]) Body height 63.5 [in_i] 63.5 [in_i] eCW1 ([facility]) Body weight 238.2 [lb_av] 238.2 [lb_av] eCW1 ([facility]) Diastolic blood pressure 84 mm[Hg] 84 mm[Hg] eCW1 ([facility]) Systolic blood pressure 122 mm[Hg] 122 mm[Hg] e CW1 ([facility]) Body temperature 97.6 [degF] 97.6 [degF] eCW1 ( [facility]) Diastolic blood pressure 0 mm[Hg] Normal (applies to non-numeric results) 0 mm[Hg] [facility] ([facility]) Systolic blood pressure 0 mm[Hg] Normal (applies t o non-numeric results) 0 mm[Hg] [facility] ([facility]) Body mass index (BMI) [Ratio] 0.00 kg/m2 No rmal (applies to non-numeric results) 0.00 kg/m2 [facility]umed[facility] ([facility]) Body weight Measured 0.00 lbs Normal (applies to n on-numeric results) 0.00 lbs [facility] ([facility]) Body height 0.00 in Normal (applies to non-numeric resu lts) 0.00 in [facility] ([facility]) Diastolic blood pressure 78 mm[Hg] 78 mm[Hg] eCW1 ([facility]) Systolic blood pressure 118 mm[Hg] 118 mm[Hg] e CW1 ([facility]) Body temperature 97.5 [degF] 97.5 [degF] eCW1 ( [facility]) Respiratory rate 20 /min 20 /min eCW1 ([facility]) Heart rate 104 /min 104 /min eCW1 ([facility]) Body mass index (BMI) [Ratio] 41.32 kg/m2 41.32 kg/m2 eCW1 ([facility]) Body height 63.5 [in_us] 63.5 [in_us] eCW1 [facility] Body weight Measured 237 [lb_av] 237 [lb_av] eC W1 ([facility]) Diastolic blood pressure 77 mm[Hg] 77 mm[Hg] eCW1 ([facility]) Systolic blood pressure 138 mm[Hg] 138 mm[Hg] e CW1 ([facility]) Body temperature 97.0 [degF] 97.0 [degF] eCW1 ( [facility]) Respiratory rate 18 /min 18 /min eCW1 ([facility]) Heart rate 79 /min 79 /min eCW1 ([facility]) Body mass index (BMI) [Ratio] 41.15 kg/m2 41.15 kg/m2 eCW1 ([facility]) Body height 63.5 [in_us] 63.5 [in_us] eCW1 ([facility]) Body weight Measured 236 [lb_av] 236 [lb_av] eC W1 ([facility]) Diastolic blood pressure 96 mm[Hg] 96 mm[Hg] eCW1 ([facility]) Systolic blood pressure 143 mm[Hg] 143 mm[Hg] e CW1 ([facility]) Body temperature 97.6 [degF] 97.6 [degF] eCW1 ( [facility]) Respiratory rate 18 /min 18 /min eCW1 ([facility]) Heart rate 85 /min 85 /min eCW1 ([facility]) Body mass index (BMI) [Ratio] 41.25 kg/m2 41.25 kg/m2 eCW1 ([facility]) Body height 63.5 [in_us] 63.5 [in_us] eCW1 ([facility]) Body weight Measured 236.6 [lb_av] 236.6 [lb_av ] eCW1 ([facility]) Diastolic blood pressure 78 mm[Hg] 78 mm[Hg] eCW1 ([facility]) Systolic blood pressure 130 mm[Hg] 130 mm[Hg] e CW1 ([facility]) Body temperature 97.8 [degF] 97.8 [degF] eCW1 ( [facility]) Respiratory rate 18 /min 18 /min eCW1 ([facility]) Heart rate 91 /min 91 /min eCW1 ([facility]) Body mass index (BMI) [Ratio] 41.32 kg/m2 41.32 kg/m2 eCW1 ([facility]) Body height 63.5 [in_us] 63.5 [in_us] eCW1 ([facility]) Body weight Measured 237.0 [lb_av] 237.0 [lb_av ] eCW1 ([facility]) Diastolic blood pressure 78 mm[Hg] 78 mm[Hg] eCW1 ([facility]) Systolic blood pressure 128 mm[Hg] 128 mm[Hg] e CW1 ([facility]) Body temperature 98.3 [degF] 98.3 [degF] eCW1 ( [facility]) Respiratory rate 20 /min 20 /min eCW1 ([facility]) Heart rate 81 /min 81 /min eCW1 ([facility]) Body mass index (BMI) [Ratio] 41.49 kg/m2 41.49 kg/m2 eCW1 ([facility]) Body height 63.5 [in_us] 63.5 [in_us] eCW1 ([facility]) Body weight Measured 238 [lb_av] 238 [lb_av] eC W1 ([facility]) Diastolic blood pressure 0 mm[Hg] Normal (applies to non-numeric results) 0 mm[Hg] [facility] ([facility]) Systolic blood pressure 0 mm[Hg] Normal (applies t o non-numeric results) 0 mm[Hg] [facility] ([facility]) Body mass index (BMI) [Ratio] 0.00 kg/m2 No rmal (applies to non-numeric results) 0.00 kg/m2 [facility] ([facility]) Body weight Measured 242.00 lbs Normal (applies to n on-numeric results) 242.00 lbs [facility] ([facility]) Body height 0.00 in Normal (applies to non-numeric resu lts) 0.00 in [facility] ([facility] [facility] Respiratory rate 16 /min 16 /min MEDENT ( [facility]) Heart rate 76 /min 76 /min MEDENT ([facility]) Diastolic blood pressure 80 mm[Hg] 80 mm[Hg] MEDENT ([facility]) Systolic blood pressure 130 mm[Hg] 130 mm[Hg] M EDENT ([facility] ) Diastolic blood pressure 95 mm[Hg] 95 mm[Hg] eCW1 ([facility]) Systolic blood pressure 141 mm[Hg] 141 mm[Hg] e CW1 ([facility]) Body temperature [degF] eCW1 ([facility]) Respiratory rate 16 /min 16 /min eCW1 ([facility]) Heart rate 74 /min 74 /min eCW1 ([facility]) Body mass index (BMI) [Ratio] 41.49 kg/m2 41.49 kg/m2 eCW1 ([facility]) Body height 63.5 [in_us] 63.5 [in_us] eCW1 [facility] Body weight Measured 238 [lb_av] 238 [lb_av] eC W1 ([facility]) Patient Treatment Plan of Care Planned Activity Planned Date Details Description Data Source (s) Ciprofloxacin 500 MG Oral Tablet 07/05/2019 12:00:00 AM EST eCW1 ([facility]) Ciprofloxacin 500 MG Oral Tablet 03/24/2019 12:00:00 AM EST eCW1 ([facility])
--- OUTSIDE RECORDS SUMMARY | 2020-05-16 13:02 | CCD ---
Author Author [facility] Organization [facility] Address Unknown Phone Unavailable Care Team Providers Care Director Food And Beverage Name Role Phone Emil Salcido PA Unavailable [...] Unavailable Unavailable Micaela Vital Unavailable MACQUEEN, RENU RADIAL ARM SAW OPERATOR Unavailable Unavailable MACQUEEN, RENU RADIAL ARM SAW OPERATOR Unavailable Unavailable MACQUEEN, RENU RADIAL ARM SAW OPERATOR Unavailable Unavailable MACQUEEN, RENU RADIAL ARM SAW OPERATOR Unavailable Unavailable MACQUEEN, RENU RADIAL ARM SAW OPERATOR Unavailable Unavailable MACQUEEN, RENU RADIAL ARM SAW OPERATOR Unavailable Unavailable MACQUEEN, RENU RADIAL ARM SAW OPERATOR Unavailable Unavailable MACQUEEN, RENU RADIAL ARM SAW OPERATOR Unavailable Unavailable MACQUEEN, RENU RADIAL ARM SAW OPERATOR Unavailable Unavailable MACQUEEN, RENU RADIAL ARM SAW OPERATOR Unavailable Unavailable MACQUEEN, RENU RADIAL ARM SAW OPERATOR Unavailable Unavailable [facility] OF Unavailable [phone] [facility] OF Unavailable [phone] Re-disclosure Warning The records that you are [...] is protected by Article 27-F of the [facility] Public Health law. If you continue you may have access to information: Regarding HIV / AIDS; Provided by facilities licensed or operated by the [facility] Office of Mental Health; or Provided by the [facility] Office for People With Developmental Disabilities. If such information is present, then the following [facility] mandated warning applies: This information has [...] law may result in a fine or alf sentence or both. A general authorization for the release of medical or other information is NOT sufficient authorization for further disc losure. Allergies and Adverse Reactions Type Description Substance Reaction Status Data Source(s ) Drug allergy Tegretol Carbamazepine Hives Active eCW1 ([facility]) Drug allergy Dilantin Phenytoin Hives Active eCW1 ([facility]) Drug allergy Zoloft Sertraline Hives Active eCW1 ([facility]) Drug allergy Topamax topiramate Kidney Stones Active eCW1 ([facility]) Drug allergy Macrobid NITROFURANTOIN, MACR OCRYSTALS / Nitrofurantoin, Monohydrate Hives Active eCW1 ([facility]) Septra Septra Septra Hives Active eCW1 ([facility]) Keflex Keflex Cephalexin 750 MG Oral Capsule [Keflex] Rash Active eCW1 ([facility]) frisium frisium frisium rash, lump in throat Active eCW 1 ([facility]) Benadryl Benadryl Benadryl Hives Active eCW1 ([facility]) Hives Active eCW1 ([facility]) Keflex Keflex Cephalexin 750 MG Oral Capsule [Keflex] Rash Active eCW1 ([facility]) frisium frisium frisium rash, lump in throat Active eCW 1 ([facility]) Benadryl Benadryl Benadryl Hives Active eCW1 ([facility]) Hives Active eCW1 ([facility]) Keflex Keflex Cephalexin 750 MG Oral Capsule [Keflex] Rash Active eCW1 ([facility]) frisium frisium frisium rash, lump in throat Active eCW 1 ([facility]) Benadryl Benadryl Benadryl Hives Active eCW1 ([facility]) Hives Active eCW1 ([facility]) Keflex Keflex Cephalexin 750 MG Oral Capsule [Keflex] Rash Active eCW1 ([facility]) frisium frisium frisium rash, lump in throat Active eCW 1 ([facility]) Benadryl Benadryl Benadryl Hives Active eCW1 ([facility]) Hives Active eCW1 ([facility]) Keflex Keflex Cephalexin 750 MG Oral Capsule [Keflex] Rash Active eCW1 ([facility]) frisium frisium frisium rash, lump in throat Active eCW 1 ([facility]) Benadryl Benadryl Benadryl Hives Active eCW1 ([facility]) Hives Active eCW1 ([facility]) Keflex Keflex Cephalexin 750 MG Oral Capsule [Keflex] Rash Active eCW1 ([facility]) frisium frisium frisium rash, lump in throat Active eCW 1 ([facility]) Benadryl Benadryl Benadryl Hives Active eCW1 ([facility]) Encounters Encounter Providers Location Date Indications Data Source(s ) Outpatient Attender: Purvi TAYLOR Main office - [facility] 05/13/2020 09:00:00 AM EST MED[facility] ([facility] ) Extended Individual Psychotherapy - 45 min Attender: [facility] 05/04/2020 11:00:00 AM EST - 05/04/2020 11:00:00 AM EST [facility] ([facility]) Attender: Harshadsdkhalida Morales 05/04/2020 12:00:00 AM EST [facility] ([facility]) [place] [address] [facility] [address] 04/13/2020 12:00:00 AM EST eCW1 ([facility]) Extended Individual Psychotherapy - 45 min Attender: [facility] 04/09/2020 05:00:00 AM EST - 04/09/2020 05:00:00 AM EST [facility] ([facility]) Attender: Griselda Morales 04/09/2020 12:00:00 AM EST [facility] ([facility]) [place] [address] [facility] [address] 04/06/2020 12:00:00 AM EST eCW1 ([facility]) Outpatient Attender: RENU ANGELO NP [facility] 04/02/2020 09:30:00 AM EST - 04/02/2020 09:30:00 AM EST [facility] ([facility]) Attender: RENU ANGELO NP 04/02/2020 12:00:00 AM EST [facility] ([facility]) Unknown [address] [facility] [address] 03/23/2020 12:00:00 AM EST eCW1 ([facility]) Unknown [address] [facility] [address] 03/16/2020 12:00:00 AM EST eCW1 ([facility]) ( GYNANN) [facility] 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 [address] [place] [address] 03/02/2020 12:00:00 AM EST eCW1 ([facility]) Extended Individual Psychotherapy - 45 min Attender: Griselda Morales [facility] 02/26/2020 03:00:00 AM EDT - 02/26/2020 03:00:00 AM EDT [facility] ([facility]) Attender: Griselda Morales 02/26/2020 12:00:00 AM EDT [facility] ([facility]) Unknown [address] [facility] [address] 02/24/2020 12:00:00 AM EDT eCW1 ([facility]) [id number]"Psychotherapy Attender: Harshadloyd Morales [facility] 02/14/2020 05:00:00 AM EDT - 02/14/2020 05:00:00 AM EDT [facility] ([facility]) Attender: Griselda Morales 02/14/2020 12:00:00 AM EDT [facility] ([facility]) [id number]"Psychotherapy Attender: Harshadsdkhalida Morales [facility] 01/30/2020 11:00:00 AM EDT - 01/30/2020 11:00:00 AM EDT [facility] ([facility]) Attender: Griselda Morales 01/30/2020 12:00:00 AM EDT [facility] ([facility]) [place] [address] [facility] [address] 01/21/2020 12:00:00 AM EDT eCW1 ([facility]) Extended Individual Psychotherapy - 45 min Attender: Harshadsdkhalida Morales [facility] 01/16/2020 11:15:00 AM EDT - 01/16/2020 11:15:00 AM EDT [facility] ([facility]) Attender: Griselda Morales 01/16/2020 12:00:00 AM EDT [facility] ([facility]) Outpatient Attender: Purvi TAYLOR [facility] 11/11/2019 10:00:00 AM EDT MEDENT ([facility], ) [id number]"Psychotherapy Attender: Micaela Vital [facility] 10/31/2019 10:00:00 AM EDT - 10/31/2019 10:00:00 AM EDT [facility] ([facility]) Attender: Micaela Vital 10/31/2019 12:00:00 AM E DT [facility] ([facility]) [place] [address] [facility] [address] 10/10/2019 12:00:00 AM EDT eCW1 ([facility]) TEMPMHCTelemed 30" Psychotherapy Attender: Micaela [facility] 10/03/2019 10:00:00 AM EDT - 10/03/2019 10:00:00 AM EDT [facility] ([facility]) Attender: Micaela Vital 10/03/2019 12:00:00 AM E DT [facility] ([facility]) TEMPMHCTelemed 30" Psychotherapy Attender: Micaela [facility] 09/05/2019 09:00:00 AM EDT - 09/05/2019 09:00:00 AM EDT [facility] ([facility]) Attender: Micaela Vital 09/05/2019 12:00:00 AM E DT [facility] ([facility]) Outpatient Attender: RENU ANGELO NP [facility] Jordan jameel 08/28/2019 09:00:00 AM EDT - 08/28/2019 09:00:00 AM EDT [facility] ([facility]) Attender: RENU ANGELO NP 08/28/2019 12:00:00 AM EDT [facility] ([facility]) [facility] [address] [facility] [address] 08/27/2019 12:00:00 AM EDT [facility] [address] [facility] [address] 08/27/2019 12:00:00 AM EDT eCW1 ([facility] [address] [facility] [address] 08/19/2019 12:00:00 AM EDT eCW1 ([facility]) [facility] [address] [place] [address], [place] [address] 08/15/2019 12:00:00 AM EDT eCW1 ([facility]) [facility] [address] [place] [address], [place] [address] 07/24/2019 12:00:00 AM EDT eCW1 ([facility]) TEMPMTelemed 30" Psychotherapy Attender: Urmila De Leon [facility] 07/19/2019 10:00:00 AM EDT - 07/19/2019 10:00:00 AM EDT [facility] ([facility]) Attender: Urmila De Leon 07/19/2019 12:00:00 AM E DT [facility] ([facility]) Outpatient 07/17/2019 05:13:00 AM EDT [facility] [address] [place] [address], [place] [address] 07/12/2019 12:00:00 AM EDT eCW1 ([facility]) [facility] [address] [place] [address], [place] [address] 07/09/2019 12:00:00 AM EDT eCW1 ([facility]) Outpatient 07/08/2019 11:22:00 AM EDT [facility] [address] [place] [address], [place] [address] 07/08/2019 12:00:00 AM EDT eCW1 ([facility]) [facility] [address] [place] [address], [place] [address] 07/05/2019 12:00:00 AM EST eCW1 ([facility]) [address] [address] 07/03/2019 12:00:00 AM EST eCW1 ([facility]) [address] [address] 07/02/2019 12:00:00 AM EST eCW1 ([facility]) [address] [address] 06/28/2019 12:00:00 AM EST eCW1 ([facility]) Outpatient 06/27/2019 11:53:00 AM EST [facility] [address] [address] 06/21/2019 12:00:00 AM EST eCW1 ([facility]) [address] [address] 06/21/2019 12:00:00 AM EST eCW1 ([facility]) Extended Individual Psychotherapy - 45 min Attender: [facility] 06/05/2019 09:00:00 AM EST - 06/05/2019 09:00:00 AM EST [facility] ([facility]) Attender: [facility] 12:00:00 AM EST [facility] ([facility]) Outpatient Attender: RENU ANGELO NP [facility] Jordan jameel 05/30/2019 04:00:00 AM EST - 05/30/2019 04:00:00 AM EST [facility] ([facility]) [address] [address] 05/30/2019 12:00:00 AM EST eCW1 ([facility]) Attender: RENU ANGELO NP 05/30/2019 12:00:00 AM EST [facility] ([facility]) [address] [place] [address] [address] 05/28/2019 12:00:00 AM EST eCW1 ([facility]) Outpatient Attender: Purvi TAYLOR Main office - [facility] 05/13/2019 09:00:00 AM EST MEDENT ([facility], ) Outpatient Attender: RENU ANGELO NP [facility] 05/08/2019 03:00:00 AM EST - 05/08/2019 03:00:00 AM EST [facility] ([facility]) Attender: RENU ANGELO NP 05/08/2019 12:00:00 AM EST [facility] ([facility]) [facility] [address] [facility] [address] 04/26/2019 12:00:00 AM EST eCW1 ([facility]) Brief Individual Psychotherapy - 30 min Attender: Lucia Elder [facility] 04/11/2019 09:30:00 AM EST - 04/11/2019 09:30:00 AM EST [facility] ([facility]) Attender: Lucia Elder 04/11/2019 12:00:00 AM EST [facility] ([facility]) Outpatient Attender: RENU ANGELO NP [facility] 04/04/2019 09:00:00 AM EST - 04/04/2019 09:00:00 AM EST [facility] ([facility]) Attender: RENU ANGELO NP 04/04/2019 12:00:00 AM EST [facility] ([facility]) [facility] [address] [address] 03/24/2019 12:00:00 AM EST eCW1 ([facility]) Functional Status Immunizations Vaccine Date Status Description Data Source(s) influenza, recombinant, quadrIvalent,injectable, prese rvative free 04/06/2020 06:16:00 PM EST completed eCW1 ([facility]) influenza, recombinant, quadrIvalent,injectable, prese rvative free 04/06/2020 06:16:00 PM EST completed eCW1 ([facility]) Medications Medication Brand Name Start Date Product [...] BY MOUTH EVERY 7 DAYS SOLD: 03/21/2020 [facility] 20 mg 02/24/2020 12:00:00 AM EDT [...] BY MOUTH ONCE A DAY SOLD: 10/29/2019 [facility] 28 Day Kit 0.1-20 mg-mcg LEVONORGESTREL/ETHINYL ESTRA DIOL 09/30/2019 12:00:00 AM EDT tablet 28 TAKE ONE TABLET BY MOUTH ONCE A DAY TAKE ONE TABLET BY MOUTH ONCE A DAY SOLD: 01/27/2020 [facility] 28 Day Kit 0.1-20 mg-mcg LEVONORGESTREL/ETHINYL ESTRA DIOL 09/30/2019 12:00:00 AM EDT tablet 28 TAKE ONE TABLET BY MOUTH ONCE A DAY TAKE ONE TABLET BY MOUTH ONCE A DAY SOLD: 12/27/2019 [facility] 28 Day Pack 0.1-20 mg-mcg LEVONORGESTREL/ETHINYL EST RADIOL 09/30/2019 12:00:00 AM EDT tablet 28 TAKE ONE TABLET BY MOUTH ONCE A DAY TAKE ONE TABLET BY MOUTH ONCE A DAY SOLD: 10/03/2019 [facility] 28 Day Pack 0.1-20 mg-mcg LEVONORGESTREL/ETHINYL [...] 1 hour prior to your cystoscopy eCW1 ([facility]) Ciprofloxacin 500 MG Oral Tablet Ciprofloxacin HCl 500 MG Ciprofloxacin HCl 500 MG 07/05/2019 12:00:00 AM EST active 1 tablet 1 hour prior to your cystoscopy eCW1 ([facility]) 500 mg 07/05/2019 12:00:00 AM EST tablet [...] 12:00:00 AM EST active 1 tablet eCW1 ([facility]) 20 mg 03/19/2019 12:00:00 AM EST capsule,delayed release (DR/EC) 30 TAKE ONE CAPSULE BY MOUTH EVERY DAY TAKE ONE CAPSULE BY MOUTH EVERY DAY SOLD: 03/24/2019 [facility] 28 Day Pack 0.1-20 mg-mcg LEVONORGESTREL/ETHINYL EST [...] type / Coverage type Policy ID Covered alliance party ID Covered alliance party's relationship to jamison Policy Jamison Plan Information MEDICARE [id number] SP [id number] EMEDNY [id number] SP [id number] MEDICARE [id number] SP [id number] SELF PAY ONLY [id number] SP [id number] MEDICAID M [id number] S [id number] MEDICAID [id number] SP [id number] [facility] [id number] Medicaid Medicaid [id number] Self [id number] [facility] [id number] ANSI-Medicaid [id number] ANSI-Medicaid [id number] ANSI-Medicaid [id number] ANSI-Medicaid [id number] ANSI-Medicaid [id number] ANSI-Medicaid [id number] ANSI-Medicaid [id number] ANSI-Medicaid [id number] ANSI-Medicaid [id number] ANSI-Medicaid [id number] ANSI-Medicaid [id number] ANSI-Medicaid [id number] ANSI-Medicaid [id number] ANS-Medicaid [id number] ANSI-Medicaid [id number] [place] [id number] Self [id number] MEDICAID [id number] SP [id number] Medicaid [place] [id number] Self [id number] MEDICAID [id number] SP [id number] Medicaid Medicaid 99 Self 99 MEDICAID M [id number] S [id number] MEDICAID [id number] SP [id number] Problems, Conditions, and Diagnoses Code Display Name Description Problem Type Effective Dates Data Source(s) F84.0 Autistic disorder Autism Spectrum Disorder Condition 05/04/2020 12:00:00 AM EST [facility] ([facility]) F33.0 Major depressive disorder, recurrent, mi ld Major Depressive Disorder, Recurrent episode, Mild Condition 05/04/2020 12:00:00 AM EST [facility] ([facility]) R31.29 Microscopic hematuria Microscopic hematuria Problem 07/05/2019 12:00:00 AM EST eCW1 ([facility]) R31.29 Microscopic hematuria Microscopic hematuria Problem 07/05/2019 12:00:00 AM EST eCW1 ([facility]) Surgeries/Procedures Procedure Description Date Indications Data Source(s) Extended Individual Psychotherapy - 45 min 05/04/2020 12:00:00 AM EST - 05/04/2020 12:00:00 AM EST [facility] ([facility]) Extended Individual Psychotherapy - 45 min 12:00:00 AM EST [facility] ([facility]) Extended Individual Psychotherapy - 45 min 04/09/2020 12:00:00 AM EST - 04/09/2020 12:00:00 AM EST [facility] ([facility]) Extended Individual Psychotherapy - 45 min 0 12:00:00 AM EST [facility] ([facility]) Immunization: Flublok Quadrivalent (18 years & older) 0.5mL IM (Influenza) 04/06/2020 12:00:00 AM EST eC ([facility]) MHC Telemed E/M Lvl 3--Est pt 04/02/2020 12:00:00 AM EST - 04/02/2020 12:00:00 AM EST [facility] ([facility]) MHC Telemed E/M Lvl 3--Est pt 04/02/2020 12:00:[address] [facility] ([facility]) Extended Individual Psychotherapy - 45 min 02/26/2020 12:00:00 AM EDT - 02/26/2020 12:00:00 AM EDT [facility] ([facility]) Extended Individual Psychotherapy - 45 min 0 12:00:00 AM EDT [facility] ([facility]) [id number]"Psychotherapy 0 12:00:00 AM EDT - 02/14/2020 12:00:00 AM EDT [facility] ([facility]) [id number]"Psychotherapy 02/14/2020 12:00:00 AM EDT [facility] ([facility]) [id number]"Psychotherapy 0 12:00:00 AM EDT - 01/30/2020 12:00:00 AM EDT [facility] ([facility]) [id number]"Psychotherapy 01/30/2020 12:00:00 AM EDT [facility] ([facility]) Extended Individual Psychotherapy - 45 min 01/16/2020 12:00:00 AM EDT - 01/16/2020 12:00:00 AM EDT [facility] ([facility]) Extended Individual Psychotherapy - 45 min 0 12:00:00 AM EDT [facility] ([facility]) [id number]"Psychotherapy 0 12:00:00 AM EDT - 10/31/2019 12:00:00 AM EDT [facility] ([facility]) [id number]"Psychotherapy 10/31/2019 12:00:00 AM EDT [facility] ([facility]) TEMPMHCTelemed 30" Psychotherapy 12:00:00 AM EDT - 10/03/2019 12:00:00 AM EDT [facility] ([facility]) TEMPMHCTelemed 30" Psychotherapy 10/03/2019 12:00:00 A M EDT [facility] ([facility]) TEMPMHCTelemed 30" Psychotherapy 12:00:00 AM EDT - 09/05/2019 12:00:00 AM EDT [facility] ([facility]) TEMPMHCTelemed 30" Psychotherapy 09/05/2019 12:00:00 A M EDT [facility] ([facility]) MHC Telemed E/M Lvl 3--Est pt 08/28/2019 12:00:00 AM EDT - 08/28/2019 12:00:00 AM EDT [facility] ([facility]) MHC Telemed E/M Lvl 3--Est pt 08/28/2019 12:00:00 AM E DT [facility] ([facility]) CYSTOSCOPY 07/24/2019 12:00:00 AM EDT e CW1 ([facility]) TEMPMHCTelemed 30" Psychotherapy 12:00:00 AM EDT - 07/19/2019 12:00:00 AM EDT [facility] ([facility]) TEMPMHCTelemed 30" Psychotherapy 07/19/2019 12:00:00 A M EDT [facility] ([facility]) Extended Individual Psychotherapy - 45 min 06/05/2019 12:00:00 AM EST - 06/05/2019 12:00:00 AM EST [facility] ([facility]) Extended Individual Psychotherapy - 45 min 0 12:00:00 AM EST [facility] ([facility]) OFFICE OUTPATIENT VISIT 15 MINUTES 05/30 12:00:00 AM EST - 05/30/2019 12:00:00 AM EST [facility] ([facility]) OFFICE OUTPATIENT VISIT 15 MINUTES 05/30/2019 12:00:00 AM EST [facility] ([facility]) OFFICE OUTPATIENT VISIT 15 MINUTES 05/08 12:00:00 AM EST - 05/08/2019 12:00:00 AM EST [facility] ([facility]) OFFICE OUTPATIENT VISIT 15 MINUTES 05/08/2019 12:00:00 AM EST [facility] ([facility]) Brief Individual Psychotherapy - 30 min 04/11/2019 12:00:00 AM EST - 04/11/2019 12:00:00 AM EST [facility] ([facility]) Brief Individual Psychotherapy - 30 min 04/11/2019 12: 00:00 AM EST [facility] ([facility]) OFFICE OUTPATIENT VISIT 15 MINUTES 04/04 12:00:00 AM EST - 04/04/2019 12:00:00 AM EST [facility] ([facility]) OFFICE OUTPATIENT VISIT 15 MINUTES 04/04/2019 12:00:00 AM EST [facility] ([facility]) URINE-NO MICRO 03/24/2019 12:00:00 AM EST eCW1 ([facility]) URINE TEST 03/24/2019 12:00:00 AM EST eCW1 ([facility]) Results ID Date Data Source [id number] 04/22/2020 12:00:00 AM EST [facility] Name Value Range Interpretation Code Description Data Hoa rce(s) Supporting Document(s) SARS-CoV-2 (COVID-19) RNA [Presence] in Respiratory specimen by [facility] with probe detection [facility] This lab was ordered by [facility] and reported by [employer] ID Date Data Source PAP REQUEST FOR SERVICE 03/02/2020 12:00:00 AM EST eCW1 ([facility]) Name Value Range Interpretation Code Description Data Hoa rce(s) Supporting Document(s) PAP REQUEST FOR SERVICE eCW1 ( [facility]) ID Date Data Source [id number] 11/14/2019 12:13:00 PM EDT [facility] ([facility] ) Name Value Range Interpretation Code Description Data Hoa rce(s) Supporting Document(s) Valproate [Mass/volume] in Serum or Plasma 74.4 UG/ML 50.0-100.0 MEDENT ([facility]) Levetiracetam [Mass/volume] in Serum or Plasma 31.4 ug/mL 10.0-40.0 MEDENT ([facility] ) This test was developed and its performa nce characteristics determined by [facility]. It has not been cleared or approved by the Food and Drug Administration. Performed at: [facility] [id number] Machine Shop Apprentice: Janel Julien MD, Phone: [phone] ID Date Data Source LIPASE 08/15/2019 12:00:00 AM EDT eCW1 ([facility]) Name Value Range Interpretation Code Description Data Hoa rce(s) Supporting Document(s) [id number] LIPASE eCW1 ([facility]) ID Date Data Source Comprehensive Metabolic Profile (CMP) 08/15/2019 12:00:00 AM EDT eCW1 ([facility]) Name Value Range Interpretation Code Description Data Hoa rce(s) Supporting Document(s) 17 7-18 BLOOD UREA NITROGEN eCW1 ([facility]) 143 70-100 GLUCOSE, FASTING eCW1 ([facility]) 139 136-145 SODIUM LEVEL eCW1 ([facility]) 0.80 0.55-1.30 CREATININE FOR GFR eCW1 ([facility]) > 60.0 >58 GLOMERULAR FILTRATION RATE eCW 1 ([facility]) 4.1 3.5-5.1 POTASSIUM SERUM eCW1 ([facility]) 24 21-32 CARBON DIOXIDE LEVEL eCW1 ([facility]) 107 98-107 CHLORIDE LEVEL eCW1 ([facility]) 8.5 8.5-10.1 CALCIUM LEVEL eCW1 ([facility]) 14 7-37 AST/SGOT eCW1 ([facility]) 71 45-117 ALKALINE PHOSPHATASE eCW1 ([facility]) 0.3 0.2-1.0 BILIRUBIN,TOTAL eCW1 ([facility]) 14 12-78 ALT/SGPT eCW1 ([facility]) 7.0 6.4-8.2 TOTAL PROTEIN eCW1 ([facility]) 0.63 1.00-1.93 ALBUMIN/GLOBULIN RATIO eCW1 ([facility]) 2.7 3.2-5.2 ALBUMIN eCW1 ([facility]) ID Date Data Source [id number] TUMOR MARKER,CARBOHYDRA 08/15/2019 12:00:00 AM EDT eC W1 ([facility]) Name Value Range Interpretation Code Description Data Hoa rce(s) Supporting Document(s) 15.1 <35.0 [id number] TUMOR MARKER,CARBO HYDRA eCW1 ([facility]) ID Date Data Source AMYLASE 08/15/2019 12:00:00 AM EDT eCW1 ([facility]) Name Value Range Interpretation Code Description Data Hoa rce(s) Supporting Document(s) 18 25-115 AMYLASE eCW1 ([facility]) ID Date Data Source CBC with Differential 08/15/2019 12:00:00 AM EDT eCW1 ([facility]) Name Value Range Interpretation Code Description Data Hoa rce(s) Supporting Document(s) 4.53 4.00-5.40 RED BLOOD COUNT eCW1 ([facility]) 10.0 4.0-10.0 WHITE BLOOD COUNT eCW1 ([facility]) 29.8 27.0-33.0 MEAN CORPUSCULAR HEMOGLOB IN eCW1 ([facility]) 92.1 80.0-96.0 MEAN CORPUSCULAR VOLUME e CW1 ([facility]) 41.7 36.0-47.0 HEMATOCRIT eCW1 ([facility]) 13.5 12.0-15.5 HEMOGLOBIN eCW1 ([facility]) 32.4 32.0-36.5 MEAN CORPUSCULAR HGB CONC eCW1 ([facility]) 316 150-450 PLATELET COUNT, AUTOMATED eCW1 ([facility]) 13.2 11.5-14.5 RED CELL DISTRIBUTION WID TH eCW1 ([facility]) 62.7 36.0-66.0 NEUTROPHILS % eCW1 ([facility]) 0.3 0.0-1.0 BASO % eCW1 ([facility]) 9.2 0.0-5.0 MONO % eCW1 ([facility]) 25.8 24.0-44.0 LYMPH % eCW1 ([facility]) 1.5 0.0-3.0 EOS % eCW1 ([facility]) 6.3 1.5-8.5 NEUTROPHILS # eCW1 ([facility]) 2.6 1.5-5.0 LYMPH # eCW1 ([facility]) 0.2 0.0-0.5 EOS # eCW1 ([facility]) 0.9 0.0-0.8 MONO # eCW1 ([facility]) 0.0 0.0-0.2 BASO # eCW1 ([facility]) ID Date Data Source C REACTIVE PROTEIN QUANTITATIV (At [facility]) 06/28/2019 12:00 :00 AM EST eCW1 ([facility]) Name Value Range Interpretation Code Description Data Hoa rce(s) Supporting Document(s) 0.59 0.00-0.30 C REACTIVE PROTEIN QUANTI TATIV eCW1 ([facility]) ID Date Data Source [id number] 05/23/2019 10:19:00 AM EST MEDENT ([facility]) Name Value Range Interpretation Code Description Data Hoa rce(s) Supporting Document(s) Insulin [Units/volume] in Serum or Plasma 24.1 uIU/mL 2.6-24.9 MEDENT ([facility], ) Performed at: RN - [facility] [address] [id number] Machine Shop Apprentice: Candis Almendarez MD, Phone: [phone] ID Date Data Source [id number] 05/23/2019 10:19:00 AM EST MEDENT ([facility]) Name Value Range Interpretation Code Description Data Hoa rce(s) Supporting Document(s) Malb Urine Siemens 20.0 mg/L MEDENT ([facility]) Creatinine, Urine 239.0 mg/dL MEDENT ([facility]) Thomas/Creat Ratio 8.3 MCG/MG 0.0-30.0 MEDENT ([facility]) THE [employer] STATES THAT MICROALBUMINURIA IS PRESENT IF THE MICROALBUMIN/CREATININE RATIO EXCEEDS 30 MCG/MG. THE THRESHOLD FOR CLINICAL ALBUMINURIA IS REACHED AT 300 MCG/MG. THE CLASSIFICATION OF A PATIENT SHOULD BE BASED UPON AT LEAST 2 OF 3 ABNORMAL RESULTS ON SPECIMENS COLLECTED WITHIN A 3 TO 6 MONTH TIME FRAME. ID Date Data Source [id number] 05/23/2019 10:19:00 AM EST MEDENT ([facility]) Name Value Range Interpretation Code Description Data Hoa rce(s) Supporting Document(s) PH,Urine 6.0 units 5.0-9.0 MEDENT ([facility]) Appearance, Urine Laboratory test result MEDENT ([facility]) Color, Urine Laboratory test result MEDE NT ([facility]) Specific [place] Urine Auto 1.023 1.002-1.035 MEDENT ([facility]) Ketone, Urine Auto Laboratory test result MEDENT ([facility]) Protein, Urine Auto Laboratory test result MEDENT ([facility]) Glucose, Urine (Ua) Auto Laboratory test result MEDENT ([facility]) Nitrite, Urine Auto Laboratory test result MEDENT ([facility]) Bilirubin, Urine Auto Laboratory test result MEDENT ([facility]) Urobilinogen, Urine Auto 2.0 mg/dL 0.0-2.0 MEDENT ([facility]) Leukocyte Esterase, Urine Auto Laboratory test result MEDENT ([facility]) WBC, Urine Auto 2 /HPF 0-3 MEDENT ([facility]) Blood, Urine Blood Laboratory test result MEDENT ([facility]) RBC, Urine Auto 36 /HPF 0-3 MEDENT ([facility]) Mucus, Urine Laboratory test result MEDE NT ([facility]) Bacteria, Urine Auto Laboratory test result MEDENT ([facility]) Squamous Epithelial Cell Ur AU 6 /HPF 0-6 MEDENT ([facility]) Hyaline Cast, Urine Auto 0 /LPF 0-1 MEDEN T ([facility]) ID Date Data Source [id number] 05/23/2019 10:19:00 AM EST MEDENT ([facility]) Name Value Range Interpretation Code Description Data Hoa rce(s) Supporting Document(s) Hemoglobin A1c 5.6 % MEDENT ([facility]) REFERENCE RANGES: 4.5-5.6% NORMAL 5.7-6.4% SUGGESTS IMPAIRED GLUCOSE META BOLISM >= 6.5% ABNORMAL Estimated Average Glucose 114 mg/dL 60-110 MEDENT ([facility]) ID Date Data Source [id number] 05/23/2019 10:19:00 AM EST MEDENT ([facility]) Name Value Range Interpretation Code Description Data Hoa rce(s) Supporting Document(s) Parathyrin.intact [Mass/volume] in Serum or Plasma 85.8 pg/mL 18.5-88 .0 MEDENT ([facility]) Calcidiol [Mass/volume] in Serum or Plasma 104.5 ng/mL 30.0-100.0 MEDENT ([facility]) ID Date Data Source [id number] 05/23/2019 10:19:00 AM EST MEDENT ([facility]) Name Value Range Interpretation Code Description Data Hoa rce(s) Supporting Document(s) Creatinine For GFR 0.76 mg/dL 0.55-1.30 MEDENT ([facility]) Glucose, Fasting 88 mg/dL 70-100 MEDENT ([facility]) Blood Urea Nitrogen 16 mg/dL 7-18 MEDENT ([facility]) Potassium Serum 4.5 meq/L 3.5-5.1 MEDENT ([facility]) Glomerular Filtration Rate Laboratory test result MEDENT ([facility]) <content>Units are mL/min/1.73 m2</content>
<content></content>
<content>Chronic Kidney Disease Staging per NKF:</content>
<content></content>
<content>Stage I & II GFR >=60 Normal to Mildly Decreased</content>
<content>Stage III GFR 30- 59 Moderately Decreased</content>
<content>Stage IV GFR 15-29 Severely Decreased</content>
<content>Stage V GFR <15 Very Little GFR Left</content>
<content>ESRD GFR <15 on MANUFACTURING ELECTRICIAN</content>
<content></content> Sodium Level 141 meq/L 136-145 MEDENT ([facility]) Calcium Level 8.6 mg/dL 8.5-10.1 MEDENT ([facility]) Anion Gap 7 meq/L 8-16 MEDENT ([facility]) Carbon Dioxide Level 27 meq/L 21-32 MEDENT ([facility]) Chloride Level 107 meq/L 98-107 MEDENT ([facility]) Alkaline Phosphatase 63 U/L 45-117 MEDENT ([facility]) Ast/Sgot 9 U/L 7-37 MEDENT ([facility]) Alt/SGPT 14 U/L 12-78 MEDENT ([facility]) Albumin 2.9 GM/DL 3.2-5.2 MEDENT ([facility]) Bilirubin,Total 0.4 mg/dL 0.2-1.0 MEDENT ([facility]) Total Protein 6.7 GM/DL 6.4-8.2 MEDENT ([facility]) Albumin/Globulin Ratio 0.76 1.00-1.93 MEDENT ([facility]) ID Date Data Source [id number] 05/23/2019 10:19:00 AM EST MEDENT ([facility]) Name Value Range Interpretation Code Description Data Hoa rce(s) Supporting Document(s) Levetiracetam [Mass/volume] in Serum or Plasma 22.0 ug/mL 10.0-40.0 MEDENT ([facility] ) This test was developed and its performa nce characteristics determined by [facility]. It has not been cleared or approved by the Food and Drug Administration. Performed at: [facility] [id number] Machine Shop Apprentice: Janel Julien MD, Phone: [phone] ID Date Data Source [id number] 05/23/2019 10:19:00 AM EST MEDENT ([facility] ) Name Value Range Interpretation Code Description Data Hoa rce(s) Supporting Document(s) White Blood Count 10.1 10 4.0-10.0 MEDENT ([facility] ) Red Blood Count 4.49 10 4.00-5.40 MEDENT ([facility], ) Hematocrit 42.1 % 36.0-47.0 MEDENT ([facility] ) Mean Corpuscular Volume 93.8 fl 80.0-96.0 M EDENT ([facility] ) Hemoglobin 13.1 g/dL 12.0-15.5 MEDENT ([facility]) Mean Corpuscular Hemoglobin 29.2 pg 27.0-33.0 MEDENT ([facility]) Mean Corpuscular HGB Conc 31.1 g/dL 32.0-36.5 MEDENT ([facility]) Red Cell Distribution Width 13.4 % 11.5-14.5 MEDENT ([facility]) Platelet Count, Automated 276 10 150-450 MEDENT ([facility] ) Lymph % 32.6 % 24.0-44.0 MEDENT ([facility] ) Neutrophils % 56.1 % 36.0-66.0 MEDENT ([facility] ) Wilson % 9.1 % 0.0-5.0 MEDENT [facility] Eos % 1.6 % 0.0-3.0 MEDENT ([facility]) Baso % 0.2 % 0.0-1.0 MEDENT ([facility] ) Immature Granulocyte % 0.4 % 0-3.0 MEDENT ([facility]) Neutrophils # 5.7 10 1.5-8.5 MEDENT ([facility] ) Nucleated Red Blood Cell % 0.0 % 0-0 MED ENT ([facility] ) Lymph # 3.3 10 1.5-5.0 MEDENT ([facility] ) Eos # 0.2 10 0.0-0.5 MEDENT ([facility] ) Wilson # 0.9 10 0.0-0.8 MEDENT ([facility] ) Baso # 0.0 10 0.0-0.2 MEDENT ([facility] ) ID Date Data Source [id number] 05/23/2019 10:19:00 AM EST MEDENT ([facility] ) Name Value Range Interpretation Code Description Data Hoa rce(s) Supporting Document(s) Aspartate aminotransferase [Enzymatic activity/volume] in Se rum or Plasma 9 U/L 7-37 MEDENT ([facility] ) Valproate [Mass/volume] in Serum or Plasma 63.8 UG/ML 50.0-100.0 MEDENT ([facility] ) Alanine aminotransferase [Enzymatic activity/volume] in Seru m or Plasma 14 U/L 12-78 MEDENT ([facility] ) Procedure Social History Code Duration Value Status Description Data Source(s ) Smoking 05/04/2020 12:00:00 AM EST Unknown if ever smoked comp leted Unknown if ever smoked [facility] ([facility]) Smoking 04/13/2020 12:00:00 AM EST Never Smoker completed Never S moker eCW1 ([facility]) Smoking 04/09/2020 12:00:00 AM EST Unknown if ever smoked comp leted Unknown if ever smoked [facility] ([facility]) Smoking 04/02/2020 12:00:00 AM EST Unknown if ever smoked comp leted Unknown if ever smoked [facility] ([facility]) Smoking 03/02/2020 12:00:00 AM EST Never Smoker completed Never S moker eCW1 ([facility]) Smoking 03/02/2020 12:00:00 AM EST Never Smoker completed Never S moker eCW1 ([facility]) Smoking 03/02/2020 12:00:00 AM EST Never Smoker completed Never S moker eCW1 ([facility]) Smoking 03/02/2020 12:00:00 AM EST Never Smoker completed Never S moker eCW1 ([facility]) Smoking 02/26/2020 12:00:00 AM EDT Unknown if ever smoked comp leted Unknown if ever smoked [facility] ([facility]) Smoking 02/14/2020 12:00:00 AM EDT Unknown if ever smoked comp leted Unknown if ever smoked [facility] ([facility] Smoking 01/30/2020 12:00:00 AM EDT Unknown if ever smoked comp leted Unknown if ever smoked [facility] ([facility]) Smoking 01/16/2020 12:00:00 AM EDT Unknown if ever smoked comp leted Unknown if ever smoked [facility] ([facility]) Smoking 10/31/2019 12:00:00 AM EDT Unknown if ever smoked comp leted Unknown if ever smoked [facility] ([facility]) Smoking 10/10/2019 12:00:00 AM EDT Never Smoker completed Never S moker eCW1 ([facility]) Smoking 10/10/2019 12:00:00 AM EDT Never Smoker completed Never S moker eCW1 ([facility]) Smoking 10/10/2019 12:00:00 AM EDT Never Smoker completed Never S moker eCW1 ([facility]) Smoking 10/03/2019 12:00:00 AM EDT Unknown if ever smoked comp leted Unknown if ever smoked [facility] ([facility]) Smoking 09/05/2019 12:00:00 AM EDT Unknown if ever smoked comp leted Unknown if ever smoked [facility] ([facility]) Smoking 08/28/2019 12:00:00 AM EDT Unknown if ever smoked comp leted Unknown if ever smoked [facility] ([facility]) Smoking 07/19/2019 12:00:00 AM EDT Unknown if ever smoked comp leted Unknown if ever smoked [facility] ([facility]) Smoking 06/05/2019 12:00:00 AM EST Unknown if ever smoked comp leted Unknown if ever smoked [facility] ([facility]) Smoking 05/30/2019 12:00:00 AM EST Unknown if ever smoked comp leted Unknown if ever smoked [facility] ([facility]) Smoking 05/08/2019 12:00:00 AM EST Unknown if ever smoked comp leted Unknown if ever smoked [facility] ([facility]) Smoking 04/11/2019 12:00:00 AM EST Unknown if ever smoked comp leted Unknown if ever smoked [facility] ([facility]) Smoking 04/04/2019 12:00:00 AM EST Unknown if ever smoked comp leted Unknown if ever smoked [facility] ([facility]) Vital Signs ID Date Data Source UNK Name Value Range Interpretation Code Description Data Source(s) Body weight 241.6 [lb_av] 241.6 [lb_av] eCW1 ([facility]) Diastolic blood pressure 82 mm[Hg] 82 mm[Hg] eCW1 ([facility]) Systolic blood pressure 130 mm[Hg] 130 mm[Hg] e CW1 ([facility]) Body temperature 98.3 [degF] 98.3 [degF] eCW1 ( [facility]) Respiratory rate 20 /min 20 /min eCW1 ([facility]) Heart rate 90 /min 90 /min eCW1 ([facility]) Body mass index (BMI) [Ratio] 42.12 kg/m2 42.12 kg/m2 W1 ([facility]) Body height 63.5 [in_i] 63.5 [in_i] W1 ([facility]) Diastolic blood pressure 0 mm[Hg] Normal (applies to non-numeric results) 0 mm[Hg] [facility] ([facility]) Systolic blood pressure 0 mm[Hg] Normal (applies t o non-numeric results) 0 mm[Hg] [facility] ([facility]) Body mass index (BMI) [Ratio] 0.00 kg/m2 No rmal (applies to non-numeric results) 0.00 kg/m2 [facility] ([facility]) Body weight Measured 0.00 lbs Normal (applies to n on-numeric results) 0.00 lbs [facility] ([facility]) Body height 0.00 in Normal (applies to non-numeric resu lts) [facility].00 [facility] Diastolic blood pressure 82 mm[Hg] 82 mm[Hg] eCW1 ([facility]) Systolic blood pressure 124 mm[Hg] 124 mm[Hg] e CW1 ([facility]) Body mass index (BMI) [Ratio] 41.67 kg/m2 41.67 kg/m2 W1 ([facility]) Body height 63.5 [in_i] 63.5 [in_i] eCW1 ([facility]) Body weight 239 [lb_av] 239 [lb_av] eCW1 ([facility]) Respiratory rate 20 /min 20 /min MEDENT ( [facility]) Heart rate 76 /min 76 /min MEDENT ([facility] ) Diastolic blood pressure 70 mm[Hg] 70 mm[Hg] MEDENT ([facility] ) Systolic blood pressure 110 mm[Hg] 110 mm[Hg] M EDENT ([facility] ) Respiratory rate 20 /min 20 /min eCW1 ([facility]) Heart rate 83 /min 83 /min eCW1 ([facility]) Body mass index (BMI) [Ratio] 41.53 kg/m2 41.53 kg/m2 eCW1 ([facility]) Body height 63.5 [in_i] 63.5 [in_i] eCW1 ([facility]) Body weight 238.2 [lb_av] 238.2 [lb_av] eCW1 ([facility]) Diastolic blood pressure 84 mm[Hg] 84 mm[Hg] eCW1 ([facility]) Systolic blood pressure 122 mm[Hg] 122 mm[Hg] e CW1 ([facility]) Body temperature 97.6 [degF] 97.6 [degF] eCW1 ( [facility]) Diastolic blood pressure 0 mm[Hg] Normal (applies to non-numeric results) 0 mm[Hg] [facility] Systolic blood pressure 0 mm[Hg] Normal (applies t o non-numeric results) 0 mm[Hg] [facility]) Body mass index (BMI) [Ratio] 0.00 kg/m2 No rmal (applies to non-numeric results) 0.00 kg/m2 [facility] ([facility]) Body weight Measured 0.00 lbs Normal (applies to n on-numeric results) 0.00 lbs [facility] ([facility]) Body height 0.00 in Normal (applies to non-numeric resu lts) 0.00 in [facility] ([facility]) Diastolic blood pressure 78 mm[Hg] 78 mm[Hg] eCW1 ([facility]) Systolic blood pressure 118 mm[Hg] 118 mm[Hg] e CW1 ([facility]) Body temperature 97.5 [degF] 97.5 [degF] eCW1 ( [facility]) Respiratory rate 20 /min 20 /min eCW1 ([facility]) Heart rate 104 /min 104 /min eCW1 ([facility]) Body mass index (BMI) [Ratio] 41.32 kg/m2 41.32 kg/m2 eCW1 ([facility]) Body height 63.5 [in_us] 63.5 [in_us] eCW1 ([facility]) Body weight Measured 237 [lb_av] 237 [lb_av] eC W1 ([facility]) Diastolic blood pressure 77 mm[Hg] 77 mm[Hg] eCW1 ([facility]) Systolic blood pressure 138 mm[Hg] 138 mm[Hg] e CW1 ([facility]) Body temperature 97.0 [degF] 97.0 [degF] eCW1 ( [facility]) Respiratory rate 18 /min 18 /min eCW1 ([facility]) Heart rate 79 /min 79 /min eCW1 ([facility]) Body mass index (BMI) [Ratio] 41.15 kg/m2 41.15 kg/m2 eCW1 ([facility]) Body height 63.5 [in_us] 63.5 [in_us] eCW1 ([facility]) Body weight Measured 236 [lb_av] 236 [lb_av] eC W1 ([facility]) Diastolic blood pressure 96 mm[Hg] 96 mm[Hg] eCW1 ([facility]) Systolic blood pressure 143 mm[Hg] 143 mm[Hg] e CW1 ([facility]) Body temperature 97.6 [degF] 97.6 [degF] eCW1 ( [facility]) Respiratory rate 18 /min 18 /min eCW1 ([facility]) Heart rate 85 /min 85 /min eCW1 ([facility]) Body mass index (BMI) [Ratio] 41.25 kg/m2 41.25 kg/m2 eCW1 ([facility]) Body height 63.5 [in_us] 63.5 [in_us] eCW1 ([facility]) Body weight Measured 236.6 [lb_av] 236.6 [lb_av ] eCW1 ([facility]) Diastolic blood pressure 78 mm[Hg] 78 mm[Hg] eCW1 ([facility]) Systolic blood pressure 130 mm[Hg] 130 mm[Hg] e CW1 ([facility]) Body temperature 97.8 [degF] 97.8 [degF] eCW1 ( [facility]) Respiratory rate 18 /min 18 /min eCW1 ([facility]) Heart rate 91 /min 91 /min eCW1 ([facility]) Body mass index (BMI) [Ratio] 41.32 kg/m2 41.32 kg/m2 W1 ([facility]) Body height 63.5 [in_us] 63.5 [in_us] eCW1 ([facility]) Body weight Measured 237.0 [lb_av] 237.0 [lb_av ] eCW1 ([facility]) Diastolic blood pressure 78 mm[Hg] 78 mm[Hg] eCW1 ([facility]) Systolic blood pressure 128 mm[Hg] 128 mm[Hg] e CW1 ([facility]) Body temperature 98.3 [degF] 98.3 [degF] eCW1 ( [facility]) Respiratory rate 20 /min 20 /min eCW1 ([facility]) Heart rate 81 /min 81 /min eCW1 ([facility]) Body mass index (BMI) [Ratio] 41.49 kg/m2 41.49 kg/m2 eCW1 ([facility]) Body height 63.5 [in_us] 63.5 [in_us] eCW1 ([facility]) Body weight Measured 238 [lb_av] 238 [lb_av] eC W1 ([facility]) Diastolic blood pressure 0 mm[Hg] Normal (applies to non-numeric results) 0 mm[Hg] [facility] ([facility]) Systolic blood pressure 0 mm[Hg] Normal (applies t o non-numeric results) 0 mm[Hg] [facility] ([facility]) Body mass index (BMI) [Ratio] 0.00 kg/m2 No rmal (applies to non-numeric results) 0.00 kg/m2 [facility] ([facility]) Body weight Measured 242.00 lbs Normal (applies to n on-numeric results) 242.00 lbs [facility] ([facility]) Body height 0.00 in Normal (applies to non-numeric resu lts) 0.00 in [facility] ([facility]) Respiratory rate 16 /min 16 /min MEDENT ( [facility]) Heart rate 76 /min 76 /min MEDENT ([facility]) Diastolic blood pressure 80 mm[Hg] 80 mm[Hg] MEDENT ([facility]) Systolic blood pressure 130 mm[Hg] 130 mm[Hg] M EDENT ([facility]) Diastolic blood pressure 95 mm[Hg] 95 mm[Hg] eCW1 ([facility]) Systolic blood pressure 141 mm[Hg] 141 mm[Hg] e CW1 ([facility]) Body temperature [degF] eCW1 ([facility]) Respiratory rate 16 /min 16 /min eCW1 ([facility]) Heart rate 74 /min 74 /min eCW1 ([facility]) Body mass index (BMI) [Ratio] 41.49 kg/m2 41.49 kg/m2 eCW1 ([facility]) Body height 63.5 [in_us] 63.5 [in_us] eCW1 ([facility]) Body weight Measured 238 [lb_av] 238 [lb_av] eC W1 ([facility]) Patient Treatment Plan of Care Planned Activity Planned Date Details Description Data Source (s) Ciprofloxacin 500 MG Oral Tablet 07/05/2019 12:00:00 AM EST eCW1 ([facility]) Ciprofloxacin 500 MG Oral Tablet 03/24/2019 12:00:00 AM EST eCW1 ([facility])
[2020-05-16] MEDS ORDERED: AZIT-12 PO (13:14)
== END 2020-05-16 13:26 | disposition home or self-care (01) ==
LOC: M ED 12:38
DX: H66.92 Otitis media, unspecified, left ear (principal); Z79.899 Other long term (current) drug therapy; Z88.6 Allergy status to analgesic agent; Z88.8 Allergy status to other drugs, medicaments and biological substances

== ENCOUNTER → 2020-05-19 | Outpatient (CLI) | payer MEDICARE, MEDICAID ==
[~2020-05-19] MED LIST changes: +AZIT-12 PO
--- NOTE | 2020-05-19 14:05 | REPPI ---
INDICATION: MASTOIDITIS OF RIGHT SIDE. COMPARISON: No comparison study. TECHNIQUE: Two views.. FINDINGS: The lungs are well inflated and free of infiltrate. The pleural angles are sharp. The heart size is normal. Pulmonary vasculature is not increased. No significant bony abnormality is seen. There is a mild dextroconvex curve in the midthoracic spine. IMPRESSION: No active disease.. <Electronically signed by Juve Amin > 05/19/20 [id number]
== END ==
LOC: M PLAIMG 12:32
PROVIDERS: ATTEND Physician Assistant Medical
DX: H70.91 Unspecified mastoiditis, right ear (principal)
CPT/HCPCS: 36415; 71046; 80053; 85025; 85652; 86140; G0463

== ENCOUNTER → 2020-05-19 | Outpatient (REF) | payer MEDICARE, MEDICAID ==
[2020-05-19 15:18] LABS: BASO % 0.4 % (0.0-1.0); EOS # 0.2 10^3/uL (0.0-0.5); EOS % 1.3 % (0.0-3.0); HEMATOCRIT 41.7 % (36.0-47.0); HEMOGLOBIN 12.7 g/dl (12.0-15.5); LYMPH # 3.1 10^3/uL (1.5-5.0); MEAN CORPUSCULAR HEMOGLOBIN 26.9 pg (27.0-33.0); MEAN CORPUSCULAR HGB CONC 30.5 g/dl (32.0-36.5); MEAN CORPUSCULAR VOLUME 88.3 fl (80.0-96.0); MONO # 1.2 10^3/uL (0.0-0.8); MONO % 10.8 % (0.0-5.0); NEUTROPHILS # 6.8 10^3/uL (1.5-8.5); NEUTROPHILS % 59.4 % (36.0-66.0); PLATELET COUNT, AUTOMATED 366 10^3/uL (150-450); RED BLOOD COUNT 4.72 10^6/uL (4.00-5.40); WHITE BLOOD COUNT 11.4 10^3/uL (4.0-10.0)
[2020-05-19 15:46] LABS: ALBUMIN 2.9 GM/DL (3.2-5.2); ALT/SGPT 12 U/L (12-78); BILIRUBIN,TOTAL 0.3 MG/DL (0.2-1.0); BLOOD UREA NITROGEN 16 MG/DL (7-18); C REACTIVE PROTEIN QUANTITATIV 2.97 MG/DL (0.00-0.30); CALCIUM LEVEL 9.3 MG/DL (8.5-10.1); CARBON DIOXIDE LEVEL 30 MEQ/L (21-32); CHLORIDE LEVEL 102 MEQ/L (98-107); CREATININE FOR GFR 0.82 MG/DL (0.55-1.30); GLOMERULAR FILTRATION RATE > 60.0 (>58); GLUCOSE, FASTING 71 MG/DL (70-100); POTASSIUM SERUM 4.4 MEQ/L (3.5-5.1); SODIUM LEVEL 137 MEQ/L (136-145); TOTAL PROTEIN 7.4 GM/DL (6.4-8.2)
[2020-05-19 16:00] LABS: ERYTHROCYTE SEDIMENTATION RATE 35 mm/hr (0-20)
== END ==
LOC: M SFHCPLAZ 12:25
PROVIDERS: ATTEND Physician Assistant Medical
DX: H70.91 Unspecified mastoiditis, right ear (principal)

== ENCOUNTER → 2020-05-26 | Outpatient (CLI) | payer MEDICARE, MEDICAID | LOC: M PLALAB 11:37 | PROVIDERS: ATTEND Physician Assistant Medical | DX: R56.9 Unspecified convulsions (principal) ==

== ENCOUNTER → 2020-07-23 | Outpatient (REF) | payer MEDICARE, MEDICAID ==
[2020-07-23 10:15] LABS: HEMATOCRIT 38.4 % (36.0-47.0); MEAN CORPUSCULAR HEMOGLOBIN 27.2 pg (27.0-33.0); MEAN CORPUSCULAR HGB CONC 31.3 g/dl (32.0-36.5); MEAN CORPUSCULAR VOLUME 87.1 fl (80.0-96.0); PLATELET COUNT, AUTOMATED 305 10^3/uL (150-450); RED BLOOD COUNT 4.41 10^6/uL (4.00-5.40); WHITE BLOOD COUNT 11.2 10^3/uL (4.0-10.0)
[2020-07-23 10:32] LABS: HEMOGLOBIN A1c 5.7 %
[2020-07-23 10:34] LABS: LYMPHOCYTES 42 % (16-44); MONOCYTES 2 % (0-5); NEUTROPHILS 56 % (28-66); PLATELET ESTIMATE NORMAL (NORMAL)
[2020-07-23 11:14] LABS: ALBUMIN 2.9 GM/DL (3.2-5.2); ALT/SGPT 14 U/L (12-78); BILIRUBIN,TOTAL 0.2 MG/DL (0.2-1.0); BLOOD UREA NITROGEN 18 MG/DL (7-18); CALCIUM LEVEL 8.4 MG/DL (8.5-10.1); CARBON DIOXIDE LEVEL 27 MEQ/L (21-32); CHLORIDE LEVEL 107 MEQ/L (98-107); CREATININE FOR GFR 0.65 MG/DL (0.55-1.30); FREE T4 0.98 NG/DL (0.76-1.46); GLOMERULAR FILTRATION RATE > 60.0 (>58); GLUCOSE, FASTING 90 MG/DL (70-100); POTASSIUM SERUM 4.3 MEQ/L (3.5-5.1); PTH INTACT 93.4 PG/ML (18.5-88.0); SODIUM LEVEL 140 MEQ/L (136-145); TOTAL PROTEIN 6.5 GM/DL (6.4-8.2)
== END ==
LOC: M PLALAB 08:47
PROVIDERS: ATTEND Family Medicine
DX: E03.9 Hypothyroidism, unspecified (principal); R73.01 Impaired fasting glucose; E55.9 Vitamin D deficiency, unspecified

== ENCOUNTER 2020-10-21 09:53 | Emergency (ER) | payer MEDICARE, MEDICAID ==
[~2020-10-21] VITALS: Ht 160 cm; Wt 110.5 kg
[~2020-10-21 09:53] MED LIST changes: +ERGO500029 PO; -VITA50005 PO
[2020-10-21] MEDS ORDERED: AMOX875T2 (10:14)
[2020-10-21] MEDS ORDERED: OFLOSO (10:14)
[2020-10-21] MEDS ORDERED: TRIA1CR80 TOP (12:09)
[2020-10-21 12:17] VITALS: BP 171/83
== END 2020-10-21 12:21 | disposition home or self-care (01) ==
LOC: M ED 09:53
DX: L30.9 Dermatitis, unspecified (principal); Z88.7 Allergy status to serum and vaccine; Z88.1 Allergy status to other antibiotic agents; Z88.2 Allergy status to sulfonamides; Z88.8 Allergy status to other drugs, medicaments and biological substances

== ENCOUNTER → 2020-11-19 | Outpatient (CLI) | payer MEDICAID, MEDICARE ==
[~2020-11-19] MED LIST changes: +AMOX875T2; +OFLOSO; +TRIA1CR80 TOP
[2020-11-19 11:10] LABS: ALBUMIN 2.8 GM/DL (3.2-5.2); ALT/SGPT 21 U/L (12-78); BILIRUBIN,TOTAL 0.3 MG/DL (0.2-1.0); BLOOD UREA NITROGEN 14 MG/DL (7-18); CALCIUM LEVEL 8.8 MG/DL (8.5-10.1); CARBON DIOXIDE LEVEL 27 MEQ/L (21-32); CHLORIDE LEVEL 107 MEQ/L (98-107); CREATININE FOR GFR 0.66 MG/DL (0.55-1.30); FERRITIN 7 NG/ML (8-252); FREE T4 1.08 NG/DL (0.76-1.46); GLOMERULAR FILTRATION RATE > 60.0 (>58); GLUCOSE, FASTING 84 MG/DL (70-100); SODIUM LEVEL 143 MEQ/L (136-145); TOTAL PROTEIN 6.9 GM/DL (6.4-8.2); VALPROIC ACID (DEPAKOTE) 77.5 UG/ML (50.0-100.0)
[2020-11-19 11:29] LABS: VITAMIN B12 LEVEL 752 PG/ML (247-911)
== END ==
LOC: M PLALAB 08:49
PROVIDERS: ATTEND Family Medicine
DX: G40.909 Epilepsy, unspecified, not intractable, without status epilepticus (principal)

== ENCOUNTER → 2020-11-19 | Outpatient (CLI) | payer MEDICAID, MEDICARE | LOC: M PLALAB 08:46 | PROVIDERS: ATTEND Physician Assistant Medical | DX: G40.89 Other seizures (principal) ==

== ENCOUNTER → 2020-11-27 | Outpatient (CLI) | payer MEDICARE, MEDICAID ==
--- NOTE | 2020-11-27 10:11 | REP ---
INDICATION: BILATERAL PRIMARY OSTEOARTHRITIS OF KNEE. COMPARISON: None. TECHNIQUE: Bilateral knee radiographs, total of 9 views. Five on each side. A sunrise views included of bilateral knees. FINDINGS: Five views of each knee demonstrate minimal osteophytic lipping in the medial and lateral tibiofemoral compartments of the right knee. There is mild non articular spurring on the superior pole and inferior pole of patella at the insertion of the quadriceps and patellar tendons. There is also early osteophyte lipping at the superior and inferior aspect of the patella on the right on lateral radiograph. Five views of the left knee demonstrate superior pole non articular spurring on the patella consistent with quadriceps tendinosis tendinitis change. [place] view shows slight articular spurring at the lateral margin of each patella. No acute bony abnormality is seen. No evidence of joint effusion. IMPRESSION: Mild osteoarthritic changes as noted above. Non articular spurring of the patella bilaterally. This is compatible with tendinitis.. <Electronically signed by Juve Amin > 11/27/20 1007
== END ==
LOC: M RAD 09:38
PROVIDERS: ATTEND Family Medicine
DX: M17.0 Bilateral primary osteoarthritis of knee (principal)

== ENCOUNTER → 2020-12-25 | Outpatient (CLI) | payer MEDICAID ==
--- NOTE | 2020-12-25 11:35 | REPMRS ---
Patient History The patient states she has not had a clinical breast exam in over a year. Patient is nulliparous. Family history of pancreatic cancer at age 50 or over in maternal uncle, pancreatic cancer at age 50 or over in paternal grandfather. Taking hormonal contraceptives for 22 years. Pt denied . Covid vaccine 05/06/20 right arm. 06/03/20 right arm. Patient states no breast complaints today. Patient has signed MRS History Sheet. Digital Woman Screen Mammo: December 25, 2020 - Exam #: [id number] Bilateral CC and MLO view(s) were taken. Technologist: RT Rochelle Prior study comparison: December 24, 2019, bilateral digital woman screen mammo performed at [facility]. December 12, 2018, bilateral digital woman screen mammo performed at [facility]. November 20, 2017, bilateral digital woman screen mammo performed at [facility]. FINDINGS: There are scattered fibroglandular densities. The Volpara volumetric breast density category is:B. There has been no change in the appearance of the mammogram from the prior studies. There is a mild amount of scattered fibroglandular density which is fairly symmetric. There is no interval development of dominant mass, architectural distortion, or grouped microcalcification suggestive of malignancy. 3-D tomosynthesis shows no additional findings. Assessment: BI-RADS/ACR category 1 mammogram. Negative Mammogram. Recommendation Routine screening mammogram of both breasts in 1 year (for women over age 40). This patient's [facility] [address] Lifetime Breast Cancer Risk is estimated at 14.0 %. This mammogram was interpreted with the aid of an FDA-approved computer-aided dectection system. Electronically Signed By: Juve Amin MD 12/25/20 1982
== END ==
LOC: M WHC 09:04
PROVIDERS: ATTEND Family Medicine
DX: Z12.31 Encounter for screening mammogram for malignant neoplasm of breast (principal)

== ENCOUNTER → 2021-01-01 | Outpatient (CLI) | payer MEDICAID | LOC: M LABSMTC 11:12 | PROVIDERS: ATTEND Pediatrics | DX: Z20.822 Contact with and (suspected) exposure to COVID-19 (principal) | CPT/HCPCS: C9803; U0003 ==

== ENCOUNTER → 2021-03-19 | Outpatient (CLI) | payer MEDICAID, MEDICARE | LOC: M WHC 12:38 | PROVIDERS: ATTEND Nurse Practitioner Women's Health | DX: D25.9 Leiomyoma of uterus, unspecified (principal); Z53.8 Procedure and treatment not carried out for other reasons ==

== ENCOUNTER → 2021-03-29 | Outpatient (CLI) | payer MEDICAID, MEDICARE ==
[~2021-03-29] MED LIST changes: -HALO1TA PO; +HALO1TAB PO; +OMEP-173 PO; -OMEP-218 PO
[2021-03-29 13:23] LABS: BASO % 0.3 % (0.0-1.0); EOS # 0.2 10^3/uL (0.0-0.5); HEMATOCRIT 40.3 % (36.0-47.0); HEMOGLOBIN 12.5 g/dl (12.0-15.5); LYMPH # 3.4 10^3/uL (1.5-5.0); LYMPH % 30.3 % (24.0-44.0); MEAN CORPUSCULAR HEMOGLOBIN 27.4 pg (27.0-33.0); MEAN CORPUSCULAR VOLUME 88.4 fl (80.0-96.0); NEUTROPHILS # 6.6 10^3/uL (1.5-8.5); PLATELET COUNT, AUTOMATED 329 10^3/uL (150-450); RED BLOOD COUNT 4.56 10^6/uL (4.00-5.40); WHITE BLOOD COUNT 11.3 10^3/uL (4.0-10.0)
[2021-03-29 13:24] LABS: APPEARANCE, URINE HAZY (CLEAR); BACTERIA, URINE AUTO NEGATIVE (NEGATIVE); BILIRUBIN, URINE AUTO NEGATIVE (NEGATIVE); BLOOD, URINE BLOOD 2+ (NEGATIVE); COLOR, URINE YELLOW (YELLOW); GLUCOSE, URINE (UA) AUTO NEGATIVE (NEGATIVE); KETONE, URINE AUTO TRACE mg/dL (NEGATIVE); LEUKOCYTE ESTERASE, URINE AUTO NEGATIVE (NEGATIVE); MUCUS, URINE SMALL (NEGATIVE); NITRITE, URINE AUTO NEGATIVE (NEGATIVE); PROTEIN, URINE AUTO 1+ mg/dL (NEGATIVE); RBC, URINE AUTO 15 /HPF (0-3); SPECIFIC GRAVITY URINE AUTO 1.023 (1.002-1.035); SQUAMOUS EPITHELIAL CELL UR AU 6 /HPF (0-6); UROBILINOGEN, URINE AUTO 0.2 mg/dL (0.0-2.0); WBC, URINE AUTO 1 /HPF (0-3)
[2021-03-29 14:02] LABS: ALBUMIN 2.8 GM/DL (3.2-5.2); ALT/SGPT 11 U/L (12-78); BILIRUBIN,TOTAL 0.2 MG/DL (0.2-1.0); BLOOD UREA NITROGEN 20 MG/DL (7-18); CALCIUM LEVEL 9.1 MG/DL (8.5-10.1); CARBON DIOXIDE LEVEL 28 MEQ/L (21-32); CHLORIDE LEVEL 106 MEQ/L (98-107); CREATININE FOR GFR 0.72 MG/DL (0.55-1.30); FERRITIN 15 NG/ML (8-252); GLOMERULAR FILTRATION RATE > 60.0 (>58); GLUCOSE, FASTING 81 MG/DL (70-100); POTASSIUM SERUM 4.5 MEQ/L (3.5-5.1); SODIUM LEVEL 139 MEQ/L (136-145); TOTAL PROTEIN 7.1 GM/DL (6.4-8.2)
[2021-03-29 14:07] LABS: TOTAL 25(OH) VITAMIN D 93.6 NG/ML (30.0-100.0)
[2021-03-29 14:36] LABS: MALB URINE SIEMENS 52.6 MG/L; MAU/CREAT RATIO 25.1 MCG/MG (0.0-30.0)
[2021-03-29 14:57] LABS: HEMOGLOBIN A1c 5.6 %
== END ==
LOC: M PLALAB 09:42
PROVIDERS: ATTEND Family Medicine
DX: R73.01 Impaired fasting glucose (principal); D50.9 Iron deficiency anemia, unspecified; E55.9 Vitamin D deficiency, unspecified

== ENCOUNTER → 2021-03-30 | Outpatient (CLI) | payer MEDICAID, MEDICARE | LOC: M WHC 07:23 | PROVIDERS: ATTEND Nurse Practitioner Women's Health | DX: D25.9 Leiomyoma of uterus, unspecified (principal) ==

== ENCOUNTER 2021-04-16 19:52 | Emergency (ER) | payer MEDICAID, MEDICARE ==
[~2021-04-16] VITALS: Ht 160 cm; Wt 106.4 kg
[2021-04-16 19:53] VITALS: BP 144/75
[2021-04-16] MEDS ORDERED: IBUPROFEN 600MG TAB PO ONE (21:00)
[2021-04-16] MEDS ORDERED: BOOSTRIX/ADACEL VACCINE (DIPHTH/PERTUSS/ACELL/TETANUS) 0.5ML SYR IM ONE (21:05)
== END 2021-04-16 21:39 | disposition home or self-care (01) ==
LOC: M ED 19:52
DX: S93.402A Sprain of unspecified ligament of left ankle, initial encounter (principal); F79 Unspecified intellectual disabilities; E11.9 Type 2 diabetes mellitus without complications; K21.9 Gastro-esophageal reflux disease without esophagitis; Z87.442 Personal history of urinary calculi; Z88.0 Allergy status to penicillin; Z88.7 Allergy status to serum and vaccine; Z88.8 Allergy status to other drugs, medicaments and biological substances; Z88.2 Allergy status to sulfonamides; Z79.899 Other long term (current) drug therapy; Z79.01 Long term (current) use of anticoagulants; Y92.410 Unspecified street and highway as the place of occurrence of the external cause; Y93.9 Activity, unspecified; Y99.9 Unspecified external cause status

== ENCOUNTER → 2021-04-29 | Outpatient (CLI) | payer MEDICAID ==
[~2021-04-29] MED LIST changes: +HALO1TA PO; -HALO1TAB PO; -OMEP-173 PO; +OMEP-218 PO
== END ==
LOC: M PLALAB 09:12
PROVIDERS: ATTEND Physician Assistant Medical
DX: R56.9 Unspecified convulsions (principal); Z51.81 Encounter for therapeutic drug level monitoring

== ENCOUNTER → 2021-08-12 | Outpatient (REF) | payer MEDICARE, MEDICAID ==
[~2021-08-12] MED LIST changes: -HALO1TA PO; +HALO1TAB PO; +OMEP-173 PO; -OMEP-218 PO
[2021-08-12 14:39] LABS: APPEARANCE, URINE HAZY (CLEAR); BACTERIA, URINE AUTO 1+ (NEGATIVE); BILIRUBIN, URINE AUTO NEGATIVE (NEGATIVE); BLOOD, URINE BLOOD 2+ (NEGATIVE); COLOR, URINE YELLOW (YELLOW); GLUCOSE, URINE (UA) AUTO NEGATIVE (NEGATIVE); KETONE, URINE AUTO TRACE mg/dL (NEGATIVE); LEUKOCYTE ESTERASE, URINE AUTO NEGATIVE (NEGATIVE); MUCUS, URINE SMALL (NEGATIVE); NITRITE, URINE AUTO NEGATIVE (NEGATIVE); PROTEIN, URINE AUTO NEGATIVE (NEGATIVE); RBC, URINE AUTO 13 /HPF (0-3); SPECIFIC GRAVITY URINE AUTO 1.015 (1.002-1.035); SQUAMOUS EPITHELIAL CELL UR AU 9 /HPF (0-6); UROBILINOGEN, URINE AUTO 0.2 mg/dL (0.0-2.0); WBC, URINE AUTO 1 /HPF (0-3)
== END ==
LOC: M SMT 13:24
PROVIDERS: ATTEND Physician Assistant
DX: R31.29 Other microscopic hematuria (principal)

== ENCOUNTER → 2021-08-20 | Outpatient (CLI) | payer MEDICAID, MEDICARE | LOC: M WHC 07:14 | PROVIDERS: ATTEND Physician Assistant | DX: R31.21 Asymptomatic microscopic hematuria (principal) ==

== ENCOUNTER → 2021-08-23 | Outpatient (CLI) | payer MEDICAID ==
[2021-08-23 13:30] LABS: BASO % 0.2 % (0.0-1.0); EOS # 0.2 10^3/uL (0.0-0.5); EOS % 1.5 % (0.0-3.0); LYMPH # 3.9 10^3/uL (1.5-5.0); LYMPH % 31.4 % (24.0-44.0); MEAN CORPUSCULAR HEMOGLOBIN 28.7 pg (27.0-33.0); MEAN CORPUSCULAR HGB CONC 31.7 g/dl (32.0-36.5); MEAN CORPUSCULAR VOLUME 90.5 fl (80.0-96.0); MONO # 1.1 10^3/uL (0.0-0.8); MONO % 9.2 % (2.0-8.0); NEUTROPHILS # 6.9 10^3/uL (1.5-8.5); NEUTROPHILS % 56.6 % (36.0-66.0); PLATELET COUNT, AUTOMATED 343 10^3/uL (150-450); RED BLOOD COUNT 4.53 10^6/uL (4.00-5.40); WHITE BLOOD COUNT 12.3 10^3/uL (4.0-10.0)
[2021-08-23 13:38] LABS: C REACTIVE PROTEIN QUANTITATIV 0.59 MG/DL (0.00-0.30); CHOLESTEROL LEVEL 175 MG/DL (<200); CHOLESTEROL RISK RATIO 4.375 (<5); FREE T4 1.04 NG/DL (0.76-1.46); HDL CHOLESTEROL 40 MG/DL (>40); LDL CHOLESTEROL 99 MG/DL (<100); NON-HDL-C 135 MG/DL; TOTAL PROTEIN 6.8 GM/DL (6.4-8.2); TRIGLYCERIDES LEVEL 182 MG/DL (<150)
[2021-08-24 13:00] LABS: ALBUMIN 3.22 GM/DL (3.29-5.55); ALBUMIN % 47.4 % (55.8-66.1); ALPHA-1-GLOBULIN % 6.1 % (2.9-4.9); ALPHA-1-GLOBULINS 0.41 GM/DL (0.17-0.41); ALPHA-2-GLOBULINS 1.05 GM/DL (0.42-0.99); ALPHA-2-GLOBULINS % 15.4 % (7.1-11.8); BETA-1-GLOBULINS 0.52 GM/DL (0.28-0.60); BETA-1-GLOBULINS % 7.6 % (4.7-7.2); BETA-2-GLOBULINS 0.54 GM/DL (0.19-0.55); BETA-2-GLOBULINS % 7.9 % (3.2-6.5); GAMMA GLOBULIN % 15.6 % (11.1-18.8); GAMMA GLOBULINS 1.06 GM/DL (0.65-1.58)
== END ==
LOC: M PLALAB 09:23
PROVIDERS: ATTEND Family Medicine
DX: M17.0 Bilateral primary osteoarthritis of knee (principal); D72.829 Elevated white blood cell count, unspecified; E78.2 Mixed hyperlipidemia

== ENCOUNTER → 2021-12-31 | Outpatient (CLI) | payer MEDICAID | LOC: M WHC 08:58 | PROVIDERS: ATTEND Family Medicine | DX: Z12.31 Encounter for screening mammogram for malignant neoplasm of breast (principal) ==

== ENCOUNTER → 2022-01-27 | Outpatient (CLI) | payer MEDICAID ==
[2022-01-27 13:58] LABS: BASO % 0.2 % (0.0-1.0); EOS # 0.2 10^3/uL (0.0-0.5); EOS % 1.3 % (0.0-3.0); HEMATOCRIT 43.5 % (36.0-47.0); HEMOGLOBIN 13.5 g/dl (12.0-15.5); LYMPH # 4.4 10^3/uL (1.5-5.0); LYMPH % 35.5 % (24.0-44.0); MEAN CORPUSCULAR HEMOGLOBIN 29.3 pg (27.0-33.0); MEAN CORPUSCULAR VOLUME 94.6 fl (80.0-96.0); MONO % 8.1 % (2.0-8.0); NEUTROPHILS # 6.7 10^3/uL (1.5-8.5); NEUTROPHILS % 54.6 % (36.0-66.0); PLATELET COUNT, AUTOMATED 312 10^3/uL (150-450); WHITE BLOOD COUNT 12.3 10^3/uL (4.0-10.0)
[2022-01-27 14:52] LABS: ALBUMIN 2.9 GM/DL (3.2-5.2); ALT/SGPT 13 U/L (12-78); BILIRUBIN,TOTAL 0.4 MG/DL (0.2-1.0); BLOOD UREA NITROGEN 17 MG/DL (7-18); CALCIUM LEVEL 8.7 MG/DL (8.5-10.1); CARBON DIOXIDE LEVEL 28 MEQ/L (21-32); CHLORIDE LEVEL 104 MEQ/L (98-107); FERRITIN 29 NG/ML (8-252); FREE T4 1.09 NG/DL (0.76-1.46); GLOMERULAR FILTRATION RATE > 60.0 (>58); GLUCOSE, FASTING 89 MG/DL (70-100); POTASSIUM SERUM 4.5 MEQ/L (3.5-5.1); SODIUM LEVEL 139 MEQ/L (136-145); TOTAL PROTEIN 6.9 GM/DL (6.4-8.2)
[2022-01-27 14:56] LABS: HEMOGLOBIN A1c 5.5 %
[2022-01-27 15:34] LABS: PTH INTACT 79.1 PG/ML (18.5-88.0)
[2022-01-31 17:08] LABS: INSULIN LEVEL 16.5 uIU/mL (2.6-24.9); LEVETIRACETAM (KEPPRA) 43.9 ug/mL (10.0-40.0)
== END ==
LOC: M PLALAB 08:50
PROVIDERS: ATTEND Family Medicine
DX: R73.01 Impaired fasting glucose (principal)

== ENCOUNTER → 2022-03-07 | Outpatient (REF) | payer MEDICAID, MEDICARE | LOC: M SFHCWAGY 17:22 | PROVIDERS: ATTEND Nurse Practitioner Family | DX: Z12.4 Encounter for screening for malignant neoplasm of cervix (principal) ==

== ENCOUNTER → 2022-04-01 | Outpatient (REF) | payer MEDICAID, MEDICARE | LOC: M SFHCPLAZ 17:56 | PROVIDERS: ATTEND Physician Assistant | DX: R30.0 Dysuria (principal) ==

== ENCOUNTER → 2022-05-06 | Outpatient (CLI) | payer MEDICAID, MEDICARE ==
[2022-05-06 15:35] LABS: BASO % 0.2 % (0.0-1.0); EOS # 0.2 10^3/uL (0.0-0.5); EOS % 1.2 % (0.0-3.0); HEMATOCRIT 40.1 % (36.0-47.0); HEMOGLOBIN 12.5 g/dl (12.0-15.5); LYMPH # 2.8 10^3/uL (1.5-5.0); LYMPH % 23.6 % (24.0-44.0); MEAN CORPUSCULAR HEMOGLOBIN 29.5 pg (27.0-33.0); MEAN CORPUSCULAR HGB CONC 31.2 g/dl (32.0-36.5); MEAN CORPUSCULAR VOLUME 94.6 fl (80.0-96.0); MONO # 1.2 10^3/uL (0.0-0.8); MONO % 9.7 % (2.0-8.0); NEUTROPHILS # 7.8 10^3/uL (1.5-8.5); NEUTROPHILS % 64.8 % (36.0-66.0); PLATELET COUNT, AUTOMATED 284 10^3/uL (150-450); RED BLOOD COUNT 4.24 10^6/uL (4.00-5.40)
[2022-05-06 15:51] LABS: ERYTHROCYTE SEDIMENTATION RATE 30 mm/hr (0-20)
[2022-05-06 16:10] LABS: APPEARANCE, URINE MANUAL HAZY (CLEAR); COLOR, URINE MANUAL YELLOW (YELLOW)
[2022-05-06 16:12] LABS: BILIRUBIN, URINE MANUAL NEGATIVE (NEGATIVE); BLOOD URINE MANUAL POSITIVE (NEGATIVE); GLUCOSE, URINE (UA) MANUAL NEGATIVE (NEGATIVE); KETONE, URINE MANUAL 1+ mg/dL (NEGATIVE); LEUKOCYTE ESTERASE, URINE MAN TRACE (NEGATIVE); NITRITE, URINE MANUAL NEGATIVE (NEGATIVE); PH,URINE MAN 6.5 UNITS (5.0 - 7.0); PROTEIN, URINE MANUAL TRACE mg/dL (NEGATIVE); SPECIFIC GRAVITY,URINE MANUAL 1.015 (1.002-1.035); UROBILINOGEN, URINE MANUAL NORMAL (NORMAL)
[2022-05-06 16:35] LABS: BACTERIA, URINE LARGE AMOUNT; RBC, URINE 30-40 /hpf (0-3); SQUAMOUS EPITHELIAL CELL URINE LARGE AMOUNT /hpf (SMALL AMT)
[2022-05-06 16:36] LABS: HYALINE CAST, URINE NONE SEEN /lpf (0-1); MUCUS, URINE LARGE AMOUNT (NEGATIVE)
== END ==
LOC: M PLALAB 13:49
PROVIDERS: ATTEND Physician Assistant Medical
DX: R10.9 Unspecified abdominal pain (principal); Z87.448 Personal history of other diseases of urinary system

== ENCOUNTER → 2022-05-11 | Outpatient (CLI) | payer MEDICARE, MEDICAID | LOC: M RAD 06:20 | PROVIDERS: ATTEND Physician Assistant Medical | DX: R10.9 Unspecified abdominal pain (principal); R31.29 Other microscopic hematuria; K76.0 Fatty (change of) liver, not elsewhere classified ==

== ENCOUNTER → 2022-06-07 | Outpatient (CLI) | payer MEDICARE, MEDICAID ==
[2022-06-07 16:44] LABS: BASO % 0.3 % (0.0-1.0); EOS # 0.2 10^3/uL (0.0-0.5); EOS % 1.7 % (0.0-3.0); HEMATOCRIT 43.2 % (36.0-47.0); HEMOGLOBIN 13.8 g/dl (12.0-15.5); LYMPH # 3.4 10^3/uL (1.5-5.0); LYMPH % 30.8 % (24.0-44.0); MEAN CORPUSCULAR HGB CONC 31.9 g/dl (32.0-36.5); MEAN CORPUSCULAR VOLUME 93.9 fl (80.0-96.0); MONO # 1.1 10^3/uL (0.0-0.8); MONO % 10.4 % (2.0-8.0); NEUTROPHILS # 6.1 10^3/uL (1.5-8.5); NEUTROPHILS % 56.3 % (36.0-66.0); PLATELET COUNT, AUTOMATED 284 10^3/uL (150-450); WHITE BLOOD COUNT 10.9 10^3/uL (4.0-10.0)
[2022-06-07 17:07] LABS: CREATININE, URINE 118.9 MG/DL
[2022-06-07 17:08] LABS: MAU/CREAT RATIO 44.5 MCG/MG (0.0-30.0)
[2022-06-07 19:04] LABS: HEMOGLOBIN A1c 5.2 % (4.0-6.0)
[2022-06-09 15:09] LABS: INSULIN LEVEL 15.8 uIU/mL (2.6-24.9); TISSUE TRANSGLUTAMINASE IgA <2 U/mL (0-3)
== END ==
LOC: M PLALAB 09:33
PROVIDERS: ATTEND Family Medicine
DX: D50.9 Iron deficiency anemia, unspecified (principal); R73.01 Impaired fasting glucose

== ENCOUNTER → 2022-07-07 | Outpatient (REF) | payer MEDICARE, MEDICAID | LOC: M SFHCPLAZ 12:57 | PROVIDERS: ATTEND Physician Assistant | DX: R39.9 Unspecified symptoms and signs involving the genitourinary system (principal) ==

== ENCOUNTER → 2022-09-07 | Outpatient (REF) | payer MEDICARE, MEDICAID ==
[2022-09-07 14:29] LABS: APPEARANCE, URINE HAZY (CLEAR); BACTERIA, URINE AUTO 1+ (NEGATIVE); BILIRUBIN, URINE AUTO NEGATIVE (NEGATIVE); BLOOD, URINE BLOOD 2+ (NEGATIVE); COLOR, URINE AMBER (YELLOW); GLUCOSE, URINE (UA) AUTO NEGATIVE (NEGATIVE); KETONE, URINE AUTO NEGATIVE (NEGATIVE); LEUKOCYTE ESTERASE, URINE AUTO TRACE (NEGATIVE); NITRITE, URINE AUTO POSITIVE (NEGATIVE); PROTEIN, URINE AUTO 1+ mg/dL (NEGATIVE); RBC, URINE AUTO 12 /HPF (0-3); SPECIFIC GRAVITY URINE AUTO 1.011 (1.002-1.035); SQUAMOUS EPITHELIAL CELL UR AU 5 /HPF (0-6); WBC, URINE AUTO 65 /HPF (0-3)
== END ==
LOC: M SFHCPLAZ 13:10
PROVIDERS: ATTEND Nurse Practitioner Family
DX: N39.0 Urinary tract infection, site not specified (principal)

== ENCOUNTER → 2022-09-15 | Outpatient (CLI) | payer MEDICARE, MEDICAID ==
[2022-09-15 16:03] LABS: BASO # 0.1 10^3/uL (0.0-0.2); BASO % 0.4 % (0.0-1.0); EOS # 0.1 10^3/uL (0.0-0.5); EOS % 0.8 % (0.0-3.0); HEMATOCRIT 40.3 % (36.0-47.0); HEMOGLOBIN 12.8 g/dl (12.0-15.5); LYMPH # 2.7 10^3/uL (1.5-5.0); LYMPH % 22.6 % (24.0-44.0); MEAN CORPUSCULAR HEMOGLOBIN 29.9 pg (27.0-33.0); MEAN CORPUSCULAR HGB CONC 31.8 g/dl (32.0-36.5); MEAN CORPUSCULAR VOLUME 94.2 fl (80.0-96.0); MONO # 1.4 10^3/uL (0.0-0.8); MONO % 11.2 % (2.0-8.0); NEUTROPHILS # 7.8 10^3/uL (1.5-8.5); NEUTROPHILS % 64.2 % (36.0-66.0); PLATELET COUNT, AUTOMATED 263 10^3/uL (150-450); RED BLOOD COUNT 4.28 10^6/uL (4.00-5.40); WHITE BLOOD COUNT 12.1 10^3/uL (4.0-10.0)
[2022-09-15 16:13] LABS: ERYTHROCYTE SEDIMENTATION RATE 13 mm/hr (0-20)
[2022-09-15 16:27] LABS: ALBUMIN 2.8 G/DL (3.2-5.2); ALKALINE PHOSPHATASE 51 U/L (46-116); ALT/SGPT < 9 U/L (7.0-40); AST/SGOT 13 U/L (<34); BILIRUBIN,TOTAL 0.4 MG/DL (0.3-1.2); BLOOD UREA NITROGEN 21 MG/DL (9-23); CALCIUM LEVEL 8.7 MG/DL (8.5-10.1); CARBON DIOXIDE LEVEL 28 MMOL/L (20-31); CHLORIDE LEVEL 106 MMOL/L (98-107); CREATININE FOR GFR 0.71 MG/DL (0.55-1.30); GLOMERULAR FILTRATION RATE > 60.0 (>58); GLUCOSE, FASTING 75 MG/DL (60-100); POTASSIUM SERUM 4.6 MMOL/L (3.5-5.1); SODIUM LEVEL 138 MMOL/L (136-145); TOTAL PROTEIN 6.4 G/DL (5.7-8.2)
== END ==
LOC: M PLALAB 14:41
PROVIDERS: ATTEND Physician Assistant
DX: N39.0 Urinary tract infection, site not specified (principal)

== ENCOUNTER → 2022-09-21 | Outpatient (CLI) | payer MEDICARE, MEDICAID ==
[2022-09-21 13:11] LABS: BASO # 0.1 10^3/uL (0.0-0.2); BASO % 0.5 % (0.0-1.0); EOS # 0.1 10^3/uL (0.0-0.5); EOS % 1.3 % (0.0-3.0); HEMATOCRIT 39.7 % (36.0-47.0); HEMOGLOBIN 12.7 g/dl (12.0-15.5); LYMPH # 2.8 10^3/uL (1.5-5.0); MEAN CORPUSCULAR VOLUME 93.9 fl (80.0-96.0); MONO # 1.1 10^3/uL (0.0-0.8); MONO % 11.1 % (2.0-8.0); NEUTROPHILS # 5.8 10^3/uL (1.5-8.5); NEUTROPHILS % 58.3 % (36.0-66.0); PLATELET COUNT, AUTOMATED 301 10^3/uL (150-450); RED BLOOD COUNT 4.23 10^6/uL (4.00-5.40)
[2022-09-21 13:22] LABS: LIPASE 34 U/L (12-53)
[2022-09-21 13:24] LABS: ALBUMIN 2.9 G/DL (3.2-5.2); BLOOD UREA NITROGEN 21 MG/DL (9-23); CALCIUM LEVEL 8.2 MG/DL (8.5-10.1); CARBON DIOXIDE LEVEL 28 MMOL/L (20-31); CHLORIDE LEVEL 106 MMOL/L (98-107); CREATININE FOR GFR 0.75 MG/DL (0.55-1.30); GLOMERULAR FILTRATION RATE > 60.0 (>58); GLUCOSE, FASTING 72 MG/DL (60-100); PHOSPHORUS LEVEL 3.6 MG/DL (2.5-4.9); POTASSIUM SERUM 4.7 MMOL/L (3.5-5.1); SODIUM LEVEL 137 MMOL/L (136-145)
[2022-09-21 14:20] LABS: APPEARANCE, URINE HAZY (CLEAR); BACTERIA, URINE AUTO 1+ (NEGATIVE); BILIRUBIN, URINE AUTO NEGATIVE (NEGATIVE); BLOOD, URINE BLOOD 1+ (NEGATIVE); COLOR, URINE AMBER (YELLOW); GLUCOSE, URINE (UA) AUTO NEGATIVE (NEGATIVE); KETONE, URINE AUTO TRACE mg/dL (NEGATIVE); LEUKOCYTE ESTERASE, URINE AUTO NEGATIVE (NEGATIVE); MUCUS, URINE SMALL (NEGATIVE); NITRITE, URINE AUTO NEGATIVE (NEGATIVE); PROTEIN, URINE AUTO 1+ mg/dL (NEGATIVE); RBC, URINE AUTO 37 /HPF (0-3); SPECIFIC GRAVITY URINE AUTO 1.029 (1.002-1.035); SQUAMOUS EPITHELIAL CELL UR AU 9 /HPF (0-6); WBC, URINE AUTO 3 /HPF (0-3)
== END ==
LOC: M PLALAB 11:43
PROVIDERS: ATTEND Physician Assistant
DX: N39.0 Urinary tract infection, site not specified (principal); R11.0 Nausea; M54.50 Low back pain, unspecified; R31.9 Hematuria, unspecified; D72.829 Elevated white blood cell count, unspecified

== ENCOUNTER → 2022-09-21 | Outpatient (CLI) | payer MEDICARE, MEDICAID | LOC: M PLAIMG 11:01 | PROVIDERS: ATTEND Physician Assistant | DX: K76.0 Fatty (change of) liver, not elsewhere classified (principal); M41.9 Scoliosis, unspecified; N39.0 Urinary tract infection, site not specified; R11.0 Nausea; M54.50 Low back pain, unspecified; R10.30 Lower abdominal pain, unspecified; R31.9 Hematuria, unspecified; D72.829 Elevated white blood cell count, unspecified ==

== ENCOUNTER → 2022-10-07 | Outpatient (CLI) | payer MEDICARE, MEDICAID ==
[2022-10-07 10:33] LABS: BASO % 0.3 % (0.0-1.0); EOS # 0.2 10^3/uL (0.0-0.5); HEMATOCRIT 43.2 % (36.0-47.0); HEMOGLOBIN 13.5 g/dl (12.0-15.5); LYMPH # 3.8 10^3/uL (1.5-5.0); MEAN CORPUSCULAR HEMOGLOBIN 29.5 pg (27.0-33.0); MEAN CORPUSCULAR HGB CONC 31.3 g/dl (32.0-36.5); MEAN CORPUSCULAR VOLUME 94.3 fl (80.0-96.0); MONO # 0.8 10^3/uL (0.0-0.8); MONO % 8.6 % (2.0-8.0); NEUTROPHILS # 4.6 10^3/uL (1.5-8.5); NEUTROPHILS % 48.8 % (36.0-66.0); PLATELET COUNT, AUTOMATED 269 10^3/uL (150-450); RED BLOOD COUNT 4.58 10^6/uL (4.00-5.40); WHITE BLOOD COUNT 9.4 10^3/uL (4.0-10.0)
[2022-10-07 10:37] LABS: ALBUMIN 2.9 G/DL (3.2-5.2); ALKALINE PHOSPHATASE 52 U/L (46-116); ALT/SGPT 12 U/L (7.0-40); AST/SGOT 11 U/L (<34); BILIRUBIN,TOTAL 0.5 MG/DL (0.3-1.2); BLOOD UREA NITROGEN 16 MG/DL (9-23); CALCIUM LEVEL 8.7 MG/DL (8.5-10.1); CARBON DIOXIDE LEVEL 28 MMOL/L (20-31); CHLORIDE LEVEL 103 MMOL/L (98-107); CHOLESTEROL LEVEL 155 MG/DL (<200); CHOLESTEROL RISK RATIO 3.77 (<5); GLOMERULAR FILTRATION RATE > 60.0 (>58); GLUCOSE, FASTING 84 MG/DL (60-100); HDL CHOLESTEROL 41.1 MG/DL (>40); LDL CHOLESTEROL 78.7 MG/DL (<100); NON-HDL-C 113.9 MG/DL; POTASSIUM SERUM 4.2 MMOL/L (3.5-5.1); SODIUM LEVEL 139 MMOL/L (136-145); TOTAL PROTEIN 6.4 G/DL (5.7-8.2); TRIGLYCERIDES LEVEL 176 MG/DL (<150)
[2022-10-07 10:38] LABS: PTH INTACT 91.9 PG/ML (18.5-88.0)
[2022-10-07 10:41] LABS: FREE T4 1.09 NG/DL (0.89-1.76); THYROID STIMULATING HORMONE 2.373 uIU/ML (0.55-4.78)
[2022-10-07 10:46] LABS: TOTAL 25(OH) VITAMIN D 77.3 NG/ML (20.0-100.0)
[2022-10-07 10:58] LABS: CREATININE, URINE 215.2 MG/DL
[2022-10-07 10:59] LABS: MAU/CREAT RATIO 31.5 MCG/MG (0.0-30.0)
[2022-10-07 11:12] LABS: HEMOGLOBIN A1c 5.1 % (4.0-6.0)
[2022-10-10 08:06] LABS: INSULIN LEVEL 22.5 uIU/mL (2.6-24.9)
== END ==
LOC: M PLALAB 07:52
PROVIDERS: ATTEND Family Medicine
DX: E03.9 Hypothyroidism, unspecified (principal); E88.09 Other disorders of plasma-protein metabolism, not elsewhere classified; R73.01 Impaired fasting glucose; E55.9 Vitamin D deficiency, unspecified; K76.0 Fatty (change of) liver, not elsewhere classified; R56.9 Unspecified convulsions; Z51.81 Encounter for therapeutic drug level monitoring; Z79.899 Other long term (current) drug therapy

== ENCOUNTER → 2022-10-07 | Outpatient (CLI) | payer MEDICARE, MEDICAID ==
[2022-10-07 10:33] LABS: BASO % 0.4 % (0.0-1.0); EOS # 0.2 10^3/uL (0.0-0.5); HEMATOCRIT 42.8 % (36.0-47.0); HEMOGLOBIN 13.7 g/dl (12.0-15.5); LYMPH # 3.7 10^3/uL (1.5-5.0); LYMPH % 38.7 % (24.0-44.0); MEAN CORPUSCULAR HEMOGLOBIN 30.1 pg (27.0-33.0); MEAN CORPUSCULAR VOLUME 94.1 fl (80.0-96.0); MONO # 0.8 10^3/uL (0.0-0.8); MONO % 8.8 % (2.0-8.0); NEUTROPHILS # 4.8 10^3/uL (1.5-8.5); NEUTROPHILS % 49.8 % (36.0-66.0); PLATELET COUNT, AUTOMATED 281 10^3/uL (150-450); RED BLOOD COUNT 4.55 10^6/uL (4.00-5.40); WHITE BLOOD COUNT 9.6 10^3/uL (4.0-10.0)
[2022-10-07 10:37] LABS: VALPROIC ACID (DEPAKOTE) 69.3 UG/ML (50.0-100.0)
[2022-10-07 10:38] LABS: ALKALINE PHOSPHATASE 53 U/L (46-116); ALT/SGPT 12 U/L (7.0-40); AST/SGOT 13 U/L (<34); BILIRUBIN,TOTAL 0.5 MG/DL (0.3-1.2); BLOOD UREA NITROGEN 16 MG/DL (9-23); CALCIUM LEVEL 8.4 MG/DL (8.5-10.1); CARBON DIOXIDE LEVEL 28 MMOL/L (20-31); CHLORIDE LEVEL 104 MMOL/L (98-107); CREATININE FOR GFR 0.69 MG/DL (0.55-1.30); GLOMERULAR FILTRATION RATE > 60.0 (>58); GLUCOSE, FASTING 87 MG/DL (60-100); POTASSIUM SERUM 4.3 MMOL/L (3.5-5.1); SODIUM LEVEL 140 MMOL/L (136-145); TOTAL 25(OH) VITAMIN D 75.8 NG/ML (20.0-100.0); TOTAL PROTEIN 6.3 G/DL (5.7-8.2)
[2022-10-07 10:40] LABS: VITAMIN B12 LEVEL 614 PG/ML (211-911)
[2022-10-07 10:46] LABS: FOLATE 8.8 NG/ML (>5.4)
== END ==
LOC: M PLALAB 07:49
PROVIDERS: ATTEND Psychiatry & Neurology Neurology
DX: R56.9 Unspecified convulsions (principal); Z51.81 Encounter for therapeutic drug level monitoring; Z79.899 Other long term (current) drug therapy

== ENCOUNTER → 2022-10-13 | Outpatient (CLI) | payer MEDICAID, MEDICARE | LOC: M WHC 15:08 | PROVIDERS: ATTEND Family Medicine | DX: Z12.39 Encounter for other screening for malignant neoplasm of breast (principal); Z53.9 Procedure and treatment not carried out, unspecified reason ==

== ENCOUNTER → 2022-12-13 | Outpatient (REF) | payer MEDICARE, MEDICAID ==
[2022-12-13 14:18] LABS: APPEARANCE, URINE HAZY (CLEAR); BACTERIA, URINE AUTO 1+ (NEGATIVE); BILIRUBIN, URINE AUTO NEGATIVE (NEGATIVE); BLOOD, URINE BLOOD 2+ (NEGATIVE); COLOR, URINE AMBER (YELLOW); GLUCOSE, URINE (UA) AUTO NEGATIVE (NEGATIVE); KETONE, URINE AUTO TRACE mg/dL (NEGATIVE); LEUKOCYTE ESTERASE, URINE AUTO NEGATIVE (NEGATIVE); MUCUS, URINE SMALL (NEGATIVE); NITRITE, URINE AUTO NEGATIVE (NEGATIVE); PROTEIN, URINE AUTO 1+ mg/dL (NEGATIVE); RBC, URINE AUTO 19 /HPF (0-3); SPECIFIC GRAVITY URINE AUTO 1.027 (1.002-1.035); SQUAMOUS EPITHELIAL CELL UR AU 11 /HPF (0-6); UROBILINOGEN, URINE AUTO 0.2 mg/dL (0.0-2.0); WBC, URINE AUTO 3 /HPF (0-3)
== END ==
LOC: M SFHCPLAZ 13:13
PROVIDERS: ATTEND Nurse Practitioner Family
DX: N39.0 Urinary tract infection, site not specified (principal)

== ENCOUNTER → 2023-01-03 | Outpatient (CLI) | payer MEDICAID, MEDICARE | LOC: M WHC 10:14 | PROVIDERS: ATTEND Family Medicine | DX: Z12.31 Encounter for screening mammogram for malignant neoplasm of breast (principal) ==

== ENCOUNTER → 2023-01-06 | Outpatient (CLI) | payer MEDICARE, MEDICAID ==
[2023-01-06 14:29] LABS: BASO % 0.4 % (0.0-1.0); EOS # 0.3 10^3/uL (0.0-0.5); EOS % 2.3 % (0.0-3.0); HEMOGLOBIN 12.9 g/dl (12.0-15.5); LYMPH # 3.3 10^3/uL (1.5-5.0); MEAN CORPUSCULAR HEMOGLOBIN 29.9 pg (27.0-33.0); MEAN CORPUSCULAR HGB CONC 31.5 g/dl (32.0-36.5); MEAN CORPUSCULAR VOLUME 94.9 fl (80.0-96.0); MONO % 8.8 % (2.0-8.0); NEUTROPHILS # 6.4 10^3/uL (1.5-8.5); PLATELET COUNT, AUTOMATED 274 10^3/uL (150-450); RED BLOOD COUNT 4.32 10^6/uL (4.00-5.40)
[2023-01-06 14:30] LABS: LDH LACTATE DEHYDROGENASE 188 U/L (120-246)
[2023-01-06 14:31] LABS: ALBUMIN 2.8 G/DL (3.2-5.2); ALKALINE PHOSPHATASE 59 U/L (46-116); ALT/SGPT 9 U/L (7.0-40); AST/SGOT 9 U/L (<34); BILIRUBIN,TOTAL 0.3 MG/DL (0.3-1.2); BLOOD UREA NITROGEN 19 MG/DL (9-23); CALCIUM LEVEL 8.9 MG/DL (8.5-10.1); CARBON DIOXIDE LEVEL 27 MMOL/L (20-31); CHLORIDE LEVEL 105 MMOL/L (98-107); CREATININE FOR GFR 0.69 MG/DL (0.55-1.30); GLOMERULAR FILTRATION RATE > 60.0 (>58); GLUCOSE, FASTING 136 MG/DL (60-100); POTASSIUM SERUM 4.1 MMOL/L (3.5-5.1); SODIUM LEVEL 141 MMOL/L (136-145); TOTAL PROTEIN 6.6 G/DL (5.7-8.2)
[2023-01-06 14:35] LABS: APPEARANCE, URINE CLEAR (CLEAR); BACTERIA, URINE AUTO 1+ (NEGATIVE); BILIRUBIN, URINE AUTO NEGATIVE (NEGATIVE); BLOOD, URINE BLOOD 2+ (NEGATIVE); COLOR, URINE AMBER (YELLOW); GLUCOSE, URINE (UA) AUTO NEGATIVE (NEGATIVE); KETONE, URINE AUTO NEGATIVE (NEGATIVE); LEUKOCYTE ESTERASE, URINE AUTO NEGATIVE (NEGATIVE); MUCUS, URINE SMALL (NEGATIVE); NITRITE, URINE AUTO POSITIVE (NEGATIVE); PROTEIN, URINE AUTO 1+ mg/dL (NEGATIVE); RBC, URINE AUTO 26 /HPF (0-3); SPECIFIC GRAVITY URINE AUTO 1.016 (1.002-1.035); SQUAMOUS EPITHELIAL CELL UR AU 15 /HPF (0-6); WBC, URINE AUTO 2 /HPF (0-3)
== END ==
LOC: M PLALAB 10:54
PROVIDERS: ATTEND Family Medicine
DX: T63.331D Toxic effect of venom of brown recluse spider, accidental (unintentional), subsequent encounter (principal); R30.0 Dysuria

== ENCOUNTER → 2023-01-26 | Outpatient (REF) | payer MEDICARE, MEDICAID ==
[2023-01-26 19:09] LABS: APPEARANCE, URINE CLOUDY (CLEAR); BACTERIA, URINE AUTO 1+ (NEGATIVE); BILIRUBIN, URINE AUTO NEGATIVE (NEGATIVE); BLOOD, URINE BLOOD 3+ (NEGATIVE); CALCIUM OXALATE CRYSTALS SMALL; COLOR, URINE AMBER (YELLOW); GLUCOSE, URINE (UA) AUTO NEGATIVE (NEGATIVE); KETONE, URINE AUTO TRACE mg/dL (NEGATIVE); LEUKOCYTE ESTERASE, URINE AUTO TRACE (NEGATIVE); MUCUS, URINE SMALL (NEGATIVE); NITRITE, URINE AUTO NEGATIVE (NEGATIVE); PROTEIN, URINE AUTO 2+ mg/dL (NEGATIVE); RBC, URINE AUTO TNTC /HPF (0-3); SPECIFIC GRAVITY URINE AUTO 1.028 (1.002-1.035); SQUAMOUS EPITHELIAL CELL UR AU 9 /HPF (0-6); WBC, URINE AUTO 15 /HPF (0-3)
== END ==
LOC: M SFHCPLAZ 17:04
PROVIDERS: ATTEND Family Medicine
DX: R30.0 Dysuria (principal)

== ENCOUNTER → 2023-02-01 | Outpatient (REF) | payer MEDICARE, MEDICAID ==
[2023-02-01 13:44] LABS: APPEARANCE, URINE HAZY (CLEAR); BACTERIA, URINE AUTO NEGATIVE (NEGATIVE); BILIRUBIN, URINE AUTO NEGATIVE (NEGATIVE); BLOOD, URINE BLOOD 2+ (NEGATIVE); COLOR, URINE YELLOW (YELLOW); GLUCOSE, URINE (UA) AUTO NEGATIVE (NEGATIVE); KETONE, URINE AUTO NEGATIVE (NEGATIVE); LEUKOCYTE ESTERASE, URINE AUTO NEGATIVE (NEGATIVE); MUCUS, URINE SMALL (NEGATIVE); NITRITE, URINE AUTO NEGATIVE (NEGATIVE); PROTEIN, URINE AUTO 1+ mg/dL (NEGATIVE); RBC, URINE AUTO 24 /HPF (0-3); SQUAMOUS EPITHELIAL CELL UR AU 15 /HPF (0-6); UROBILINOGEN, URINE AUTO 0.2 mg/dL (0.0-2.0); WBC, URINE AUTO 1 /HPF (0-3)
== END ==
LOC: M SFHCPLAZ 13:18
PROVIDERS: ATTEND Family Medicine
DX: R30.0 Dysuria (principal)

== ENCOUNTER → 2023-02-07 | Outpatient (CLI) | payer MEDICARE, MEDICAID ==
[2023-02-07 14:19] LABS: BASO # 0.1 10^3/uL (0.0-0.2); BASO % 0.4 % (0.0-1.0); EOS # 0.2 10^3/uL (0.0-0.5); EOS % 1.9 % (0.0-3.0); HEMOGLOBIN 12.7 g/dl (12.0-15.5); LYMPH # 3.7 10^3/uL (1.5-5.0); MEAN CORPUSCULAR HEMOGLOBIN 30.5 pg (27.0-33.0); MEAN CORPUSCULAR HGB CONC 31.8 g/dl (32.0-36.5); MEAN CORPUSCULAR VOLUME 96.2 fl (80.0-96.0); MONO % 8.7 % (2.0-8.0); NEUTROPHILS # 6.2 10^3/uL (1.5-8.5); NEUTROPHILS % 55.4 % (36.0-66.0); PLATELET COUNT, AUTOMATED 275 10^3/uL (150-450); RED BLOOD COUNT 4.16 10^6/uL (4.00-5.40); WHITE BLOOD COUNT 11.1 10^3/uL (4.0-10.0)
[2023-02-07 14:49] LABS: FERRITIN 37.4 NG/ML (7.3-270.7)
[2023-02-07 14:52] LABS: ALBUMIN 2.9 G/DL (3.2-5.2); ALKALINE PHOSPHATASE 53 U/L (46-116); ALT/SGPT 12 U/L (7.0-40); AST/SGOT 12 U/L (<34); BILIRUBIN,TOTAL 0.4 MG/DL (0.3-1.2); BLOOD UREA NITROGEN 21 MG/DL (9-23); CALCIUM LEVEL 8.6 MG/DL (8.5-10.1); CARBON DIOXIDE LEVEL 29 MMOL/L (20-31); CHLORIDE LEVEL 105 MMOL/L (98-107); GLOMERULAR FILTRATION RATE > 60.0 (>58); GLUCOSE, FASTING 79 MG/DL (60-100); MAGNESIUM LEVEL 1.8 MG/DL (1.8-2.4); POTASSIUM SERUM 4.3 MMOL/L (3.5-5.1); SODIUM LEVEL 141 MMOL/L (136-145); TOTAL PROTEIN 6.5 G/DL (5.7-8.2)
== END ==
LOC: M PLALAB 09:52
PROVIDERS: ATTEND Family Medicine
DX: D50.9 Iron deficiency anemia, unspecified (principal)

== ENCOUNTER → 2023-06-06 | Outpatient (CLI) | payer MEDICAID ==
[2023-06-06 10:57] LABS: BASO % 0.2 % (0.0-1.0); EOS # 0.2 10^3/uL (0.0-0.5); EOS % 1.1 % (0.0-3.0); HEMATOCRIT 43.7 % (36.0-47.0); HEMOGLOBIN 13.9 g/dl (12.0-15.5); LYMPH # 4.6 10^3/uL (1.5-5.0); LYMPH % 32.4 % (24.0-44.0); MEAN CORPUSCULAR HEMOGLOBIN 30.2 pg (27.0-33.0); MEAN CORPUSCULAR HGB CONC 31.8 g/dl (32.0-36.5); MONO # 1.1 10^3/uL (0.0-0.8); MONO % 7.4 % (2.0-8.0); NEUTROPHILS # 8.3 10^3/uL (1.5-8.5); NEUTROPHILS % 58.6 % (36.0-66.0); PLATELET COUNT, AUTOMATED 290 10^3/uL (150-450); WHITE BLOOD COUNT 14.2 10^3/uL (4.0-10.0)
[2023-06-06 11:16] LABS: ALKALINE PHOSPHATASE 55 U/L (46-116); ALT/SGPT 10 U/L (7.0-40); AST/SGOT 12 U/L (<34); BILIRUBIN,TOTAL 0.4 MG/DL (0.3-1.2); BLOOD UREA NITROGEN 18 MG/DL (9-23); CALCIUM LEVEL 8.8 MG/DL (8.5-10.1); CARBON DIOXIDE LEVEL 29 MMOL/L (20-31); CHLORIDE LEVEL 107 MMOL/L (98-107); CHOLESTEROL LEVEL 155 MG/DL (<200); CHOLESTEROL RISK RATIO 3.61 (<5); CREATININE FOR GFR 0.76 MG/DL (0.55-1.30); GLOMERULAR FILTRATION RATE > 60.0 (>58); GLUCOSE, FASTING 86 MG/DL (60-100); HDL CHOLESTEROL 42.9 MG/DL (>40); LDL CHOLESTEROL 83.3 MG/DL (<100); NON-HDL-C 112.1 MG/DL; POTASSIUM SERUM 4.6 MMOL/L (3.5-5.1); SODIUM LEVEL 140 MMOL/L (136-145); TOTAL PROTEIN 6.7 G/DL (5.7-8.2); TRIGLYCERIDES LEVEL 144 MG/DL (<150)
[2023-06-06 11:17] LABS: FREE T4 1.28 NG/DL (0.89-1.76); THYROID STIMULATING HORMONE 3.448 uIU/ML (0.55-4.78)
[2023-06-06 11:18] LABS: TOTAL 25(OH) VITAMIN D 98.4 NG/ML (20.0-100.0)
[2023-06-06 11:56] LABS: HEMOGLOBIN A1c 5.2 % (4.0-6.0)
[2023-06-06 14:44] LABS: PTH INTACT 62.3 PG/ML (18.5-88.0)
== END ==
LOC: M PLALAB 07:28
PROVIDERS: ATTEND Family Medicine
DX: E03.9 Hypothyroidism, unspecified (principal); D50.9 Iron deficiency anemia, unspecified

== ENCOUNTER → 2023-06-12 | Outpatient (REF) | payer MEDICARE, MEDICAID | LOC: M SFHCPLAZ 15:07 | PROVIDERS: ATTEND Family Medicine | DX: D72.829 Elevated white blood cell count, unspecified (principal); D50.9 Iron deficiency anemia, unspecified; R73.01 Impaired fasting glucose ==

== ENCOUNTER → 2023-06-20 | Outpatient (REF) | payer MEDICAID, MEDICARE ==
[~2023-06-20] MED LIST changes: +PRED20TA PO
== END ==
LOC: M SFHCPLAZ 16:13
PROVIDERS: ATTEND Family Medicine
DX: D72.829 Elevated white blood cell count, unspecified (principal); D50.9 Iron deficiency anemia, unspecified; R73.01 Impaired fasting glucose

== ENCOUNTER 2023-06-21 15:00 | Emergency (ER) | payer MEDICAID, MEDICARE ==
[~2023-06-21] VITALS: Ht 160 cm; Wt 110.1 kg
[~2023-06-21 15:00] MED LIST changes: -PRED20TA PO
[2023-06-21] MEDS: NS 1,000 ML IV ONE (18:23)
[2023-06-21] MEDS: methylPREDNISolone 125MG 2ML VIAL IV ONE (18:23)
[2023-06-21] MEDS: FAMOTIDINE 20MG/2ML VIAL IVP ONE (18:23)
[2023-06-21] MEDS ORDERED: PRED20TA PO (19:31)
[2023-06-21 20:06] VITALS: BP 180/96; TEMP 96; O2SAT 100
== END 2023-06-21 20:07 | disposition home or self-care (01) ==
LOC: M ED 15:00
DX: R21 Rash and other nonspecific skin eruption (principal); E11.9 Type 2 diabetes mellitus without complications; I49.3 Ventricular premature depolarization; D64.9 Anemia, unspecified; F84.0 Autistic disorder; K21.9 Gastro-esophageal reflux disease without esophagitis; G40.909 Epilepsy, unspecified, not intractable, without status epilepticus; Z87.442 Personal history of urinary calculi; Z79.02 Long term (current) use of antithrombotics/antiplatelets; Z79.2 Long term (current) use of antibiotics; Z79.83 Long term (current) use of bisphosphonates; Z79.899 Other long term (current) drug therapy
CPT/HCPCS: 96361; 96374; 99284; J2930; S0028

== ENCOUNTER → 2023-08-14 | Outpatient (REF) | payer MEDICAID, MEDICARE ==
[~2023-08-14] MED LIST changes: +PRED20TA PO
== END ==
LOC: M SMT 12:35
PROVIDERS: ATTEND Physician Assistant
DX: R31.29 Other microscopic hematuria (principal)

== ENCOUNTER → 2023-09-28 | Outpatient (CLI) | payer MEDICARE, MEDICAID ==
[2023-09-28 11:37] LABS: BASO % 0.3 % (0.0-1.0); EOS # 0.2 10^3/uL (0.0-0.5); EOS % 1.9 % (0.0-3.0); HEMATOCRIT 39.7 % (36.0-47.0); HEMOGLOBIN 12.6 g/dl (12.0-15.5); LYMPH # 3.9 10^3/uL (1.5-5.0); LYMPH % 34.4 % (24.0-44.0); MEAN CORPUSCULAR HGB CONC 31.7 g/dl (32.0-36.5); MEAN CORPUSCULAR VOLUME 94.5 fl (80.0-96.0); MONO # 0.9 10^3/uL (0.0-0.8); MONO % 8.3 % (2.0-8.0); NEUTROPHILS # 6.2 10^3/uL (1.5-8.5); NEUTROPHILS % 54.7 % (36.0-66.0); PLATELET COUNT, AUTOMATED 292 10^3/uL (150-450); WHITE BLOOD COUNT 11.3 10^3/uL (4.0-10.0)
[2023-09-28 11:56] LABS: VALPROIC ACID (DEPAKOTE) 74.1 UG/ML (50.0-100.0)
[2023-09-28 11:58] LABS: ALBUMIN 2.7 G/DL (3.2-5.2); ALKALINE PHOSPHATASE 50 U/L (46-116); ALT/SGPT 11 U/L (7.0-40); AST/SGOT 8 U/L (<34); BILIRUBIN,TOTAL 0.4 MG/DL (0.3-1.2); BLOOD UREA NITROGEN 19 MG/DL (9-23); CALCIUM LEVEL 8.7 MG/DL (8.5-10.1); CARBON DIOXIDE LEVEL 28 MMOL/L (20-31); CHLORIDE LEVEL 106 MMOL/L (98-107); CREATININE FOR GFR 0.71 MG/DL (0.55-1.30); GLOMERULAR FILTRATION RATE > 60.0 (>58); GLUCOSE, FASTING 73 MG/DL (60-100); POTASSIUM SERUM 4.6 MMOL/L (3.5-5.1); SODIUM LEVEL 140 MMOL/L (136-145); TOTAL PROTEIN 6.2 G/DL (5.7-8.2)
== END ==
LOC: M PLALAB 08:17
PROVIDERS: ATTEND Psychiatry & Neurology Neurology
DX: R56.9 Unspecified convulsions (principal)

== ENCOUNTER → 2023-11-09 | Outpatient (CLI) | payer MEDICAID, MEDICARE ==
[~2023-11-09] MED LIST changes: +FLUO-365 PO; -FLUO20CA22 PO; +ONDA-282 PO; -ONDA4TAB6 PO
[2023-11-09 11:38] LABS: BASO % 0.2 % (0.0-1.0); EOS # 0.2 10^3/uL (0.0-0.5); EOS % 1.3 % (0.0-3.0); HEMATOCRIT 42.4 % (36.0-47.0); HEMOGLOBIN 13.5 g/dl (12.0-15.5); LYMPH # 3.7 10^3/uL (1.5-5.0); LYMPH % 30.6 % (24.0-44.0); MEAN CORPUSCULAR HEMOGLOBIN 29.4 pg (27.0-33.0); MEAN CORPUSCULAR HGB CONC 31.8 g/dl (32.0-36.5); MEAN CORPUSCULAR VOLUME 92.4 fl (80.0-96.0); MONO % 8.3 % (2.0-8.0); NEUTROPHILS # 7.1 10^3/uL (1.5-8.5); NEUTROPHILS % 59.2 % (36.0-66.0); PLATELET COUNT, AUTOMATED 305 10^3/uL (150-450); RED BLOOD COUNT 4.59 10^6/uL (4.00-5.40); WHITE BLOOD COUNT 12.1 10^3/uL (4.0-10.0)
[2023-11-09 11:59] LABS: CHOLESTEROL RISK RATIO 5.55 (<5); HDL CHOLESTEROL 40.5 MG/DL (>40); LDL CHOLESTEROL 146.7 MG/DL (<100); NON-HDL-C 184.5 MG/DL
[2023-11-09 12:01] LABS: FERRITIN 29.2 NG/ML (7.3-270.7)
[2023-11-09 12:08] LABS: HEMOGLOBIN A1c 5.5 % (4.0-6.0)
[2023-11-10 08:17] LABS: T P ELECTROPHORESIS SO 6.8 g/dL (6.1-8.1)
[2023-11-12 14:27] LABS: LDH 161 U/L (100-200)
[2023-11-13 19:27] LABS: (LD) FRACTION 1 22 % (18-32); (LD) FRACTION 2 38 % (29-42); (LD) FRACTION 3 22 % (14-30); (LD) FRACTION 4 8 % (6-13); (LD) FRACTION 5 9 % (5-18)
[2023-11-14 08:11] LABS: ALBUMIN SPEP 3.5 g/dL (3.8-4.8); ALPHA-1-GLOBULINS SO 0.3 g/dL (0.2-0.3); ALPHA-2-GLOBULINS SO 0.9 g/dL (0.5-0.9); BETA 2 GLOBULIN 0.5 g/dL (0.2-0.5); BETA-GLOBULIN SO 0.5 g/dL (0.4-0.6)
== END ==
LOC: M PLALAB 07:03
PROVIDERS: ATTEND Family Medicine
DX: D72.829 Elevated white blood cell count, unspecified (principal); D50.9 Iron deficiency anemia, unspecified; R73.01 Impaired fasting glucose

== ENCOUNTER → 2023-11-13 | Outpatient (REF) | payer MEDICARE, MEDICAID | LOC: M SFHCPLAZ 14:58 | PROVIDERS: ATTEND Family Medicine | DX: D72.829 Elevated white blood cell count, unspecified (principal); D50.9 Iron deficiency anemia, unspecified; R73.01 Impaired fasting glucose; E03.9 Hypothyroidism, unspecified; J30.89 Other allergic rhinitis ==

== ENCOUNTER → 2023-11-23 | Outpatient (REF) | payer MEDICAID, MEDICARE | LOC: M SFHCPLAZ 09:23 | PROVIDERS: ATTEND Family Medicine | DX: D72.829 Elevated white blood cell count, unspecified (principal); D50.9 Iron deficiency anemia, unspecified; R73.01 Impaired fasting glucose; E03.9 Hypothyroidism, unspecified; J30.89 Other allergic rhinitis; Z53.9 Procedure and treatment not carried out, unspecified reason ==

== ENCOUNTER 2023-12-25 13:08 | Emergency (ER) | payer MEDICAID, MEDICARE ==
[~2023-12-25] VITALS: Ht 160 cm; Wt 109.0 kg
[2023-12-25 15:02] LABS: BASO % 0.3 % (0.0-1.0); EOS # 0.2 10^3/uL (0.0-0.5); EOS % 1.8 % (0.0-3.0); HEMATOCRIT 43.2 % (36.0-47.0); HEMOGLOBIN 14.1 g/dl (12.0-15.5); LYMPH # 2.5 10^3/uL (1.5-5.0); LYMPH % 20.8 % (24.0-44.0); MEAN CORPUSCULAR HEMOGLOBIN 29.9 pg (27.0-33.0); MEAN CORPUSCULAR HGB CONC 32.6 g/dl (32.0-36.5); MEAN CORPUSCULAR VOLUME 91.5 fl (80.0-96.0); MONO # 1.4 10^3/uL (0.0-0.8); MONO % 11.5 % (2.0-8.0); NEUTROPHILS # 7.7 10^3/uL (1.5-8.5); NEUTROPHILS % 65.1 % (36.0-66.0); PLATELET COUNT, AUTOMATED 305 10^3/uL (150-450); RED BLOOD COUNT 4.72 10^6/uL (4.00-5.40); WHITE BLOOD COUNT 11.8 10^3/uL (4.0-10.0)
[2023-12-25 15:31] LABS: ALKALINE PHOSPHATASE 65 U/L (46-116); ALT/SGPT < 9 U/L (7.0-40); AST/SGOT 11 U/L (<34); BILIRUBIN,DIRECT 0.1 MG/DL (<0.4); BILIRUBIN,TOTAL 0.4 MG/DL (0.3-1.2); TOTAL PROTEIN 7.2 G/DL (5.7-8.2)
[2023-12-25 15:46] LABS: HCG, SERUM QUALITATIVE NEGATIVE (NEGATIVE)
[2023-12-25] MEDS ORDERED: AMOX875T2 PO (15:54)
[2023-12-25] MEDS ORDERED: HYDR-3363 PO (15:54)
[2023-12-25 16:03] VITALS: BP 120/67; TEMP 98; O2SAT 98
== END 2023-12-25 16:04 | disposition home or self-care (01) ==
LOC: M ED 13:08
DX: R10.31 Right lower quadrant pain (principal); S80.861A Insect bite (nonvenomous), right lower leg, initial encounter; L03.115 Cellulitis of right lower limb; G40.909 Epilepsy, unspecified, not intractable, without status epilepticus; F84.0 Autistic disorder; Z88.1 Allergy status to other antibiotic agents; Z88.2 Allergy status to sulfonamides; Z88.8 Allergy status to other drugs, medicaments and biological substances; Z88.7 Allergy status to serum and vaccine; Z79.2 Long term (current) use of antibiotics; Z79.52 Long term (current) use of systemic steroids; Z79.899 Other long term (current) drug therapy

== ENCOUNTER → 2024-01-09 | Outpatient (CLI) | payer MEDICAID, MEDICARE ==
[~2024-01-09] MED LIST changes: +AMOX875T2 PO; +HYDR-3363 PO
== END ==
LOC: M WHC 11:04
PROVIDERS: ATTEND Family Medicine
DX: N60.02 Solitary cyst of left breast (principal); Z12.39 Encounter for other screening for malignant neoplasm of breast; M85.80 Other specified disorders of bone density and structure, unspecified site

== ENCOUNTER → 2024-03-06 | Outpatient (CLI) | payer MEDICAID ==
[2024-03-06 10:07] LABS: INR 0.87; PARTIAL THROMBOPLASTIN TIME 29.4 SECONDS (24.8-34.2); PROTHROMBIN TIME 12.2 SECONDS (12.5-14.5)
[2024-03-06 10:22] LABS: CHOLESTEROL RISK RATIO 5.59 (<5); HDL CHOLESTEROL 54.3 MG/DL (>40); LDL CHOLESTEROL 200.3 MG/DL (<100); NON-HDL-C 249.7 MG/DL
[2024-03-06 10:25] LABS: FERRITIN 77.4 NG/ML (7.3-270.7); FREE T4 1.16 NG/DL (0.89-1.76); THYROID STIMULATING HORMONE 2.24 uIU/ML (0.55-4.78)
[2024-03-06 10:46] LABS: HEMOGLOBIN A1c 5.6 % (4.0-6.0)
[2024-03-06 10:49] LABS: HEMATOCRIT 41.9 % (36.0-47.0); HEMOGLOBIN 13.7 g/dl (12.0-15.5); MEAN CORPUSCULAR HEMOGLOBIN 30.2 pg (27.0-33.0); MEAN CORPUSCULAR HGB CONC 32.7 g/dl (32.0-36.5); MEAN CORPUSCULAR VOLUME 92.5 fl (80.0-96.0); PLATELET COUNT, AUTOMATED 337 10^3/uL (150-450); RED BLOOD COUNT 4.53 10^6/uL (4.00-5.40); WHITE BLOOD COUNT 12.9 10^3/uL (4.0-10.0)
[2024-03-06 11:41] LABS: BASOPHILS 1 % (0-1); EOSINOPHILS 1 % (0-3); LYMPHOCYTES 34 % (16-44); MONOCYTES 6 % (0-5); NEUTROPHILS 58 % (28-66)
[2024-03-06 11:43] LABS: PLATELET ESTIMATE NORMAL (NORMAL)
[2024-03-08 04:12] LABS: BERMUDA GRASS IGE < 0.10 kU/L (<0.10); BIRCH IGE < 0.10 kU/L (<0.10); COMMON RAGWEED SHORT IGE < 0.10 kU/L (<0.10); D001 IGE D PTERONYSSINUS < 0.10 kU/L (<0.10); D002-IGE D FARINAE < 0.10 kU/L (<0.10); E001-IGE CAT DANDER < 0.10 kU/L (<0.10); E005-IGE DOG DANDER < 0.10 kU/L (<0.10); ELM IGE < 0.10 kU/L (<0.10); I006 IGE COCKROACH < 0.10 kU/L (<0.10); IMMUNOGLOBULIN E FOR ALLERGENS 268 kU/L (<OR=114); M002 IGE CLADOSPORIUM HERBARU < 0.10 kU/L (<0.10); M003 IGE ASPERGILLUS FUMIGATU < 0.10 kU/L (<0.10); M006 IGE ALTERNIA ALTERNATA < 0.10 kU/L (<0.10); M1-PENICILLIUM NOTATUM < 0.10 kU/L (<0.10); MOUSE URINE IGE < 0.10 kU/L (<0.10); MUGWORT IGE < 0.10 kU/L (<0.10); OAK IGE < 0.10 kU/L (<0.10); ROUGH PIGWEED IGE < 0.10 kU/L (<0.10); SHEEP SORREL IGE < 0.10 kU/L (<0.10); SYCAMORE IGE < 0.10 kU/L (<0.10); T001-IGE MAPLE BOX ELDER < 0.10 kU/L (<0.10); T006-IGE MOUNTAIN CEDAR < 0.10 kU/L (<0.10); T014 COTTONWOOD IGE < 0.10 kU/L (<0.10); TIMOTHY GRASS IGE < 0.10 kU/L (<0.10); WALNUT TREE IGE < 0.10 kU/L (<0.10); WHITE ASH IGE < 0.10 kU/L (<0.10); WHITE MULBERRY IGE < 0.10 kU/L (<0.10)
== END ==
LOC: M PLALAB 07:50
PROVIDERS: ATTEND Family Medicine
DX: D72.829 Elevated white blood cell count, unspecified (principal); D50.9 Iron deficiency anemia, unspecified; R73.01 Impaired fasting glucose; E03.9 Hypothyroidism, unspecified; K76.0 Fatty (change of) liver, not elsewhere classified; J30.89 Other allergic rhinitis

== ENCOUNTER → 2024-04-22 | Outpatient (REF) | payer MEDICAID, MEDICARE ==
[2024-04-22 13:41] LABS: APPEARANCE, URINE HAZY (CLEAR); BACTERIA, URINE AUTO 1+ (NEGATIVE); BILIRUBIN, URINE AUTO NEGATIVE (NEGATIVE); BLOOD, URINE BLOOD 2+ (NEGATIVE); COLOR, URINE AMBER (YELLOW); GLUCOSE, URINE (UA) AUTO NEGATIVE (NEGATIVE); KETONE, URINE AUTO TRACE mg/dL (NEGATIVE); LEUKOCYTE ESTERASE, URINE AUTO NEGATIVE (NEGATIVE); MUCUS, URINE SMALL (NEGATIVE); NITRITE, URINE AUTO NEGATIVE (NEGATIVE); PROTEIN, URINE AUTO 2+ mg/dL (NEGATIVE); RBC, URINE AUTO 18 /HPF (0-3); SPECIFIC GRAVITY URINE AUTO 1.028 (1.002-1.035); SQUAMOUS EPITHELIAL CELL UR AU 19 /HPF (0-6); UROBILINOGEN, URINE AUTO 0.2 mg/dL (0.0-2.0); WBC, URINE AUTO 3 /HPF (0-3)
== END ==
LOC: M LAB REF 12:00
PROVIDERS: ATTEND Physician Assistant
DX: N39.0 Urinary tract infection, site not specified (principal)

== ENCOUNTER → 2024-05-10 | Outpatient (CLI) | payer MEDICAID, MEDICARE ==
[2024-05-10 12:31] LABS: ALBUMIN 2.9 G/DL (3.2-5.2); ALKALINE PHOSPHATASE 51 U/L (35-104); ALT/SGPT 12 U/L (7.0-40); AST/SGOT 11 U/L (<34); BILIRUBIN,TOTAL 0.3 MG/DL (0.3-1.2); BLOOD UREA NITROGEN 24 MG/DL (9-23); C REACTIVE PROTEIN QUANTITATIV 0.68 MG/DL (<1.0); CALCIUM LEVEL 8.5 MG/DL (8.5-10.1); CARBON DIOXIDE LEVEL 29 MMOL/L (20-31); CHLORIDE LEVEL 100 MMOL/L (98-107); CHOLESTEROL LEVEL 152 MG/DL (<200); CHOLESTEROL RISK RATIO 3.47 (<5); CPK CREATINE PHOSPHOKINASE 62 U/L (34-145); CREATININE FOR GFR 0.88 MG/DL (0.55-1.30); GLOMERULAR FILTRATION RATE > 60.0 (>58); GLUCOSE, FASTING 77 MG/DL (60-100); HDL CHOLESTEROL 43.7 MG/DL (>40); LDL CHOLESTEROL 77.9 MG/DL (<100); NON-HDL-C 108.3 MG/DL; POTASSIUM SERUM 3.8 MMOL/L (3.5-5.1); SODIUM LEVEL 140 MMOL/L (136-145); TRIGLYCERIDES LEVEL 152 MG/DL (<150)
== END ==
LOC: M PLALAB 09:09
PROVIDERS: ATTEND Family Medicine
DX: E78.2 Mixed hyperlipidemia (principal)

== ENCOUNTER → 2024-05-14 | Outpatient (REF) | payer MEDICAID, MEDICARE | LOC: M SFHCDERM 10:17 | PROVIDERS: ATTEND Family Medicine | DX: L72.8 Other follicular cysts of the skin and subcutaneous tissue (principal) ==

== ENCOUNTER → 2024-07-13 | Outpatient (REF) | payer MEDICAID, MEDICARE ==
[2024-07-13 16:03] LABS: APPEARANCE, URINE CLOUDY (CLEAR); BACTERIA, URINE AUTO 2+ (NEGATIVE); BILIRUBIN, URINE AUTO 1+ (NEGATIVE); BLOOD, URINE BLOOD 2+ (NEGATIVE); COLOR, URINE AMBER (YELLOW); GLUCOSE, URINE (UA) AUTO NEGATIVE (NEGATIVE); KETONE, URINE AUTO TRACE mg/dL (NEGATIVE); LEUKOCYTE ESTERASE, URINE AUTO NEGATIVE (NEGATIVE); MUCUS, URINE MODERATE (NEGATIVE); NITRITE, URINE AUTO POSITIVE (NEGATIVE); PROTEIN, URINE AUTO 3+ mg/dL (NEGATIVE); RBC, URINE AUTO 42 /HPF (0-3); SPECIFIC GRAVITY URINE AUTO 1.029 (1.002-1.035); SQUAMOUS EPITHELIAL CELL UR AU 27 /HPF (0-6); WBC, URINE AUTO 15 /HPF (0-3)
== END ==
LOC: M LAB REF 15:10
PROVIDERS: ATTEND Physician Assistant
DX: N39.0 Urinary tract infection, site not specified (principal)

== ENCOUNTER → 2024-07-24 | Outpatient (CLI) | payer MEDICAID ==
[2024-07-24 10:18] LABS: BILIRUBIN,TOTAL 0.3 MG/DL (0.3-1.2); C REACTIVE PROTEIN QUANTITATIV 0.52 MG/DL (<1.0); CALCIUM LEVEL 8.9 MG/DL (8.5-10.1); CHOLESTEROL RISK RATIO 3.45 (<5); CREATININE FOR GFR 1.08 MG/DL (0.55-1.30); GLOMERULAR FILTRATION RATE 57.9 (>58); HDL CHOLESTEROL 45.4 MG/DL (>40); LDL CHOLESTEROL 73.2 MG/DL (<100); NON-HDL-C 111.6 MG/DL; POTASSIUM SERUM 3.5 MMOL/L (3.5-5.1); TOTAL PROTEIN 7.3 G/DL (5.7-8.2)
== END ==
LOC: M PLALAB 08:28
PROVIDERS: ATTEND Family Medicine
DX: E78.2 Mixed hyperlipidemia (principal)

== ENCOUNTER 2024-09-04 10:40 | Emergency (ER) | payer MEDICARE, MEDICAID ==
[~2024-09-04] VITALS: Ht 162.6 cm; Wt 107.4 kg
[2024-09-04] MEDS: NS 500 ML IV ONE (13:00)
[2024-09-04 13:21] LABS: BASO % 0.3 % (0.0-1.0); EOS # 0.1 10^3/uL (0.0-0.5); HEMATOCRIT 37.8 % (36.0-47.0); HEMOGLOBIN 12.3 g/dl (12.0-15.5); LYMPH # 2.8 10^3/uL (1.5-5.0); LYMPH % 24.1 % (24.0-44.0); MEAN CORPUSCULAR HEMOGLOBIN 30.9 pg (27.0-33.0); MEAN CORPUSCULAR HGB CONC 32.5 g/dl (32.0-36.5); MONO # 1.1 10^3/uL (0.0-0.8); MONO % 9.4 % (2.0-8.0); NEUTROPHILS # 7.6 10^3/uL (1.5-8.5); NEUTROPHILS % 64.9 % (36.0-66.0); PLATELET COUNT, AUTOMATED 245 10^3/uL (150-450); RED BLOOD COUNT 3.98 10^6/uL (4.00-5.40); WHITE BLOOD COUNT 11.7 10^3/uL (4.0-10.0)
[2024-09-04 13:42] LABS: CK-MB VALUE MASS < 1.0 NG/ML (<3.6); CPK CREATINE PHOSPHOKINASE 49 U/L (34-145); MB/CK RELATIVE INDEX 2.04 (< OR =4)
[2024-09-04 13:44] LABS: ALBUMIN 3.1 G/DL (3.2-5.2); ALKALINE PHOSPHATASE 48 U/L (35-104); ALT/SGPT 11 U/L (7.0-40); AST/SGOT < 8 U/L (<34); BILIRUBIN,DIRECT 0.1 MG/DL (<0.4); BILIRUBIN,TOTAL 0.3 MG/DL (0.3-1.2); BLOOD UREA NITROGEN 28 MG/DL (9-23); CALCIUM LEVEL 8.5 MG/DL (8.5-10.1); CARBON DIOXIDE LEVEL 31 MMOL/L (20-31); CHLORIDE LEVEL 101 MMOL/L (98-107); CREATININE FOR GFR 1.19 MG/DL (0.55-1.30); GLOMERULAR FILTRATION RATE 56.8 (>58); GLUCOSE, FASTING 87 MG/DL (60-100); POTASSIUM SERUM 4.4 MMOL/L (3.5-5.1); SODIUM LEVEL 141 MMOL/L (136-145); TOTAL PROTEIN 6.8 G/DL (5.7-8.2)
[2024-09-04 13:54] LABS: KETONE, URINE AUTO RFX TRACE mg/dL (NEGATIVE); LEUKOCYTE ESTERASE UR AUTO RFX NEGATIVE (NEGATIVE); MUCUS, URINE RFX MODERATE (NEGATIVE); NITRITE, URINE AUTO RFX NEGATIVE (NEGATIVE); RBC, URINE AUTO RFX 15 /HPF (0-3); SQUAM EPITHELIAL CELL UR AURFX 44 /HPF (0-6)
[2024-09-04 13:55] LABS: WBC, URINE AUTO RFX 46 /HPF (0-3)
[2024-09-04 14:58] LABS: CK-MB VALUE MASS < 1.0 NG/ML (<3.6)
[2024-09-04 15:03] LABS: CPK CREATINE PHOSPHOKINASE 41 U/L (34-145); MB/CK RELATIVE INDEX 2.43 (< OR =4)
[2024-09-04] MEDS ORDERED: COLA100C5 PO (16:25)
[2024-09-04 16:31] VITALS: BP 144/67; O2SAT 99
[2024-09-04 16:43] VITALS: TEMP 97
[2024-09-04] MEDS: FOSFOMYCIN TROMETHAMINE 3 GM POWDER PACKET (MONUROL) PO ONE (16:49)
== END 2024-09-04 17:06 | disposition home or self-care (01) ==
LOC: M ED 10:40
DX: N39.0 Urinary tract infection, site not specified (principal); K59.00 Constipation, unspecified; E11.9 Type 2 diabetes mellitus without complications; K21.9 Gastro-esophageal reflux disease without esophagitis; E03.9 Hypothyroidism, unspecified; D64.9 Anemia, unspecified; F41.9 Anxiety disorder, unspecified; F32.A Depression, unspecified; Z88.1 Allergy status to other antibiotic agents; Z88.2 Allergy status to sulfonamides; Z88.8 Allergy status to other drugs, medicaments and biological substances; Z88.7 Allergy status to serum and vaccine; Z79.02 Long term (current) use of antithrombotics/antiplatelets; Z79.899 Other long term (current) drug therapy; Z79.52 Long term (current) use of systemic steroids

== ENCOUNTER → 2024-12-09 | Outpatient (CLI) | payer MEDICARE, MEDICAID ==
[~2024-12-09] MED LIST changes: +COLA100C5 PO; +DEPA250T PO; -DEPA250T2 PO
[2024-12-09 10:38] LABS: BASO # 0.0 10^3/uL (0.0-0.2); BASO % 0.3 % (0.0-1.0); EOS # 0.2 10^3/uL (0.0-0.5); EOS % 2.0 % (0.0-3.0); LYMPH # 3.9 10^3/uL (1.5-5.0); LYMPH % 32.7 % (24.0-44.0); MONO # 1.1 10^3/uL (0.0-0.8); MONO % 9.0 % (2.0-8.0); NEUTROPHILS # 6.6 10^3/uL (1.5-8.5); NEUTROPHILS % 55.5 % (36.0-66.0); PLATELET COUNT, AUTOMATED 267 10^3/uL (150-450)
[2024-12-09 10:55] LABS: ESTIMATED AVERAGE GLUCOSE 120.0 MG/DL (60-110)
[2024-12-09 11:01] LABS: VALPROIC ACID (DEPAKOTE) 56.2 UG/ML (50.0-100.0)
[2024-12-09 11:03] LABS: ALT/SGPT < 9 U/L (7.0-40); AST/SGOT 13 U/L (<34); CALCIUM LEVEL 8.6 MG/DL (8.5-10.1); CARBON DIOXIDE LEVEL 30 MMOL/L (20-31); CHLORIDE LEVEL 104 MMOL/L (98-107); CHOLESTEROL LEVEL 175 MG/DL (<200); CHOLESTEROL RISK RATIO 3.79 (<5); CREATININE FOR GFR 0.89 MG/DL (0.55-1.30); GLOMERULAR FILTRATION RATE 79.9 (>58); LDL CHOLESTEROL 85.7 MG/DL (<100); NON-HDL-C 128.9 MG/DL; POTASSIUM SERUM 4.5 MMOL/L (3.5-5.1); SODIUM LEVEL 143 MMOL/L (136-145); TOTAL 25(OH) VITAMIN D 111.2 NG/ML (20.0-100.0); TRIGLYCERIDES LEVEL 216 MG/DL (<150)
[2024-12-09 11:05] LABS: FREE T4 1.20 NG/DL (0.89-1.76); VITAMIN B12 LEVEL 526 PG/ML (211-911)
[2024-12-09 11:27] LABS: PTH INTACT 75.3 PG/ML (18.5-88.0)
== END ==
LOC: M PLALAB 08:45
PROVIDERS: ATTEND Family Medicine
DX: R73.01 Impaired fasting glucose (principal); E55.9 Vitamin D deficiency, unspecified; E53.8 Deficiency of other specified B group vitamins; E03.8 Other specified hypothyroidism; D50.9 Iron deficiency anemia, unspecified; G40.909 Epilepsy, unspecified, not intractable, without status epilepticus; E78.2 Mixed hyperlipidemia

== ENCOUNTER → 2024-12-12 | Outpatient (CLI) | payer MEDICARE, MEDICAID | LOC: M PLAIMG 14:45 | PROVIDERS: ATTEND Family Medicine | DX: M47.814 Spondylosis without myelopathy or radiculopathy, thoracic region (principal) ==

== ENCOUNTER → 2025-01-30 | Outpatient (REF) | payer MEDICAID ==
[2025-01-30 12:16] LABS: APPEARANCE, URINE CLOUDY (CLEAR); BACTERIA, URINE AUTO 1+ (NEGATIVE); BILIRUBIN, URINE AUTO NEGATIVE (NEGATIVE); BLOOD, URINE BLOOD 2+ (NEGATIVE); GLUCOSE, URINE (UA) AUTO NEGATIVE (NEGATIVE); KETONE, URINE AUTO TRACE mg/dL (NEGATIVE); LEUKOCYTE ESTERASE, URINE AUTO NEGATIVE (NEGATIVE); MUCUS, URINE SMALL (NEGATIVE); NITRITE, URINE AUTO NEGATIVE (NEGATIVE); PROTEIN, URINE AUTO 2+ mg/dL (NEGATIVE); RBC, URINE AUTO 24 /HPF (0-3); SPECIFIC GRAVITY URINE AUTO 1.027 (1.002-1.035); SQUAMOUS EPITHELIAL CELL UR AU 43 /HPF (0-6); UROBILINOGEN, URINE AUTO 4.0 mg/dL (0.0-2.0); WBC, URINE AUTO 4 /HPF (0-3)
== END ==
LOC: M LAB REF 12:03
PROVIDERS: ATTEND Physician Assistant
DX: N39.0 Urinary tract infection, site not specified (principal)

== ENCOUNTER → 2025-04-18 | Outpatient (CLI) | payer MEDICAID ==
[2025-04-18 11:50] LABS: BASO # 0.0 10^3/uL (0.0-0.2); BASO % 0.3 % (0.0-1.0); EOS # 0.2 10^3/uL (0.0-0.5); EOS % 1.4 % (0.0-3.0); LYMPH # 4.8 10^3/uL (1.5-5.0); LYMPH % 35.0 % (24.0-44.0); MONO # 1.4 10^3/uL (0.0-0.8); MONO % 10.1 % (2.0-8.0); NEUTROPHILS # 7.2 10^3/uL (1.5-8.5); NEUTROPHILS % 52.7 % (36.0-66.0); PLATELET COUNT, AUTOMATED 339 10^3/uL (150-450)
[2025-04-18 12:10] LABS: VALPROIC ACID (DEPAKOTE) 63.1 UG/ML (50.0-100.0)
[2025-04-18 12:12] LABS: FREE T4 1.28 NG/DL (0.89-1.76)
[2025-04-18 12:13] LABS: ALT/SGPT < 9 U/L (7.0-40); AST/SGOT 11 U/L (<34); CALCIUM LEVEL 8.5 MG/DL (8.5-10.1); CARBON DIOXIDE LEVEL 29 MMOL/L (20-31); CHLORIDE LEVEL 102 MMOL/L (98-107); CHOLESTEROL LEVEL 152 MG/DL (<200); CHOLESTEROL RISK RATIO 3.29 (<5); CREATININE FOR GFR 1.10 MG/DL (0.55-1.30); GLOMERULAR FILTRATION RATE 62.0 (>58); LDL CHOLESTEROL 71.3 MG/DL (<100); NON-HDL-C 105.9 MG/DL; POTASSIUM SERUM 4.0 MMOL/L (3.5-5.1); PTH INTACT 95.0 PG/ML (18.5-88.0); SODIUM LEVEL 140 MMOL/L (136-145); TRIGLYCERIDES LEVEL 173 MG/DL (<150); VITAMIN B12 LEVEL 577 PG/ML (211-911)
[2025-04-18 12:17] LABS: TOTAL 25(OH) VITAMIN D 112.7 NG/ML (20.0-100.0)
[2025-04-18 13:14] LABS: ESTIMATED AVERAGE GLUCOSE 111.0 MG/DL (60-110)
[2025-04-21 09:27] LABS: INSULIN LEVEL 20.7 uIU/mL (<=18.4)
== END ==
LOC: M PLALAB 07:55
PROVIDERS: ATTEND Family Medicine
DX: D50.9 Iron deficiency anemia, unspecified (principal); R73.01 Impaired fasting glucose; E78.2 Mixed hyperlipidemia; E55.9 Vitamin D deficiency, unspecified; E53.8 Deficiency of other specified B group vitamins; K76.0 Fatty (change of) liver, not elsewhere classified